=== PATIENT | male | born 1955 | race Two or more races ===

== ENCOUNTER 2021-03-17 02:22 | Emergency (ER) | payer OTHER ==
[~2021-03-17] VITALS: Ht 175.3 cm; Wt 86.2 kg
[2021-03-17 04:29] LABS: Basophils # (auto) 0 10 ^3/uL (0-0.2); Basophils % (auto) 0.6 % (0.0-2.0); Eosinophils # (auto) 0.2 10 ^3/uL (0-0.8); Eosinophils % (auto) 3.8 % (0.0-7.0); Hematocrit 49.9 % (41.0-53.0); Hemoglobin 16.8 g/dL (13.5-17.5); Lymphocytes # (auto) 1.4 10 ^3/uL (0.4-5.4); Lymphocytes % (auto) 29.5 % (10.0-50.0); Mean Corpuscular Hemoglobin 30.2 pg (28.0-32.0); Mean Corpuscular Hgb Conc. 33.6 g/dL (32.0-36.0); Mean Corpuscular Volume 89.9 fL (80.0-100.0); Monocytes # (auto) 0.4 10 ^3/uL (0-1.3); Monocytes % (auto) 8.7 % (0.0-12.0); Neutrophils # (auto) 2.7 10 ^3/uL (1.6-8.6); Neutrophils % (auto) 57.4 % (37.0-80.0); Nucleated Red Blood Cells % 0.1 %; Red Blood Cells 5.55 10^6/uL (4.5-5.90); White Blood Cell 4.7 10^3/uL (4.4-10.8)
[2021-03-17 04:44] LABS: Albumin 3.7 g/dL (3.4-5.0); BUN/Creatinine Ratio 13.2; Calcium 8.9 mg/dL (8.5-10.1); Magnesium 2.5 mg/dL (1.6-2.6); Potassium 3.7 mmol/L (3.5-5.1)
[2021-03-17 04:49] LABS: Bilirubin, Total 0.6 mg/dL (0.2-1.0); Total Protein 7.4 g/dL (6.4-8.2)
[2021-03-17 05:00] VITALS: BP 138/69
== END 2021-03-17 06:00 | disposition home or self-care (01) ==
LOC: EDBD 02:22 → ER 02:22
DX: R07.89 Other chest pain (principal); I10 Essential (primary) hypertension; Z88.0 Allergy status to penicillin
CPT/HCPCS: 36415; 71045; 80053; 83735; 83880; 84443; 84484; 85025; 93005

== ENCOUNTER 2021-08-09 06:20 | Day surgery (SDC) | payer OTHER ==
[~2021-08-09] VITALS: Ht 175.3 cm; Wt 83.9 kg
[~2021-08-09 06:20] MED LIST: AMLO-496 PO; ATOR20TA50 PO; DOCU1CAP22 PO; METO25TA5 PO
[2021-08-09] MEDS ORDERED: IODIXANOL 320MG/ML 100ML BTL IV ONE (07:43)
[2021-08-09] MEDS ORDERED: LIDOCAINE 2%HCL (LOCAL ANESTH.) INJ 10ml MDV ONE (07:43)
[2021-08-09] MEDS ORDERED: ANGIOMAX 250 MG VIAL IV ONE (07:53)
[2021-08-09] MEDS ORDERED: VERAPAMIL 2.5MG/ML INJ 2ML VIAL IV ONE (07:53)
[2021-08-09] MEDS ORDERED: HEPARIN SODIUM (PORCINE) 5000 UNITS/ML 1ML VIAL ONE (07:53)
[2021-08-09] MEDS ORDERED: SODIUM CHL 0.9% 100 ML ONE (07:54)
[2021-08-09] MEDS ORDERED: MIDAZOLAM HCL 2MG/2ML 2ml VIAL (1mg/ml) ONE (07:54)
[2021-08-09] MEDS ORDERED: fentaNYL CITRATE 100 MCG/2 ML VL ONE (07:54)
[2021-08-09] MEDS ORDERED: NITROGLYCERIN 5MG/ML 10ML VIAL IV ONE (07:57)
[2021-08-09] MEDS ORDERED: TICAGRELOR 90 MG TAB ONE (08:44)
[2021-08-09] MEDS ORDERED: ASPirin 325 MG TAB ONE (08:44)
== END 2021-08-09 15:02 | disposition home or self-care (01) ==
LOC: CATH 06:20
PROVIDERS: ATTEND Internal Medicine
DX: R94.39 Abnormal result of other cardiovascular function study (principal); I25.118 Atherosclerotic heart disease of native coronary artery with other forms of angina pectoris; I48.91 Unspecified atrial fibrillation; I10 Essential (primary) hypertension; E78.5 Hyperlipidemia, unspecified; Z88.0 Allergy status to penicillin; Z79.899 Other long term (current) drug therapy; Z87.891 Personal history of nicotine dependence; Z20.822 Contact with and (suspected) exposure to COVID-19
CPT/HCPCS: 93005; 93454; C1725; C1769; C1874; C1887; C1894; C9600; J0583; J1644; J2001; J2250; J3010; J3490; Q9967; U0003; 92928; 99152; 99153

== ENCOUNTER 2023-08-11 06:58 | Inpatient (IN) | payer OTHER ==
[~2023-08-11] VITALS: Ht 172.7 cm; Wt 95.9 kg
[2023-08-11] VITALS (11 sets, daily range): BP systolic 140–157; BP diastolic 77–102; PULSE 83–108; RESP 12–20; TEMP 98.8; O2SAT 94–98
[~2023-08-11 06:58] MED LIST changes: -AMLO-496 PO; +AMLO1TAB23 PO; +APIX5TAB PO; +DOCU-209 PO; -DOCU1CAP22 PO; +HYDR25TA5 PO; +LOSA-535 PO; +POTA-228 PO; +TICA90TA PO
[2023-08-11] MEDS: VANCOMYCIN HCL 1000 MG VL ONE (13:37)
[2023-08-11] MEDS: MIDAZOLAM HCL 2MG/2ML 2ml VIAL (1mg/ml) ONE (13:38)
[2023-08-11] MEDS: fentaNYL CITRATE 100 MCG/2 ML VL ONE (13:38)
[2023-08-11] MEDS: VANCOMYCIN 1GM/200ML 200 ML IV ONE (13:39)
[2023-08-11] MEDS: LIDOCAINE 2%HCL (LOCAL ANESTH.) INJ 20ML MDV ONE (13:41)
[2023-08-11] MEDS: IOHEXOL 350 MG/ML 100ML IJ ONE (13:48)
[2023-08-11] MEDS: HYDROmorphone HCL 2 MG/ML VL/or syr ONE (14:00)
[2023-08-11] MEDS ORDERED: ACETAMINOPHEN 325 MG TAB PO PRN (14:45)
[2023-08-11] MEDS ORDERED: MORPHINE SULFATE INJ 2 MG/ml SYRG IV PRN (15:00)
[2023-08-11] MEDS ORDERED: NITROGLYCERIN 0.4 MG SL TAB SL PRN (15:00)
[2023-08-11] MEDS: HYDROcodone-ACET 5/325MG TAB PO PRN (16:58)
[2023-08-12 01:00] VITALS: BP 167/101; PULSE 90; RESP 20; TEMP 98.6; O2SAT 98
[2023-08-12] MEDS: MORPHINE SULFATE INJ 2 MG/ml SYRG IV PRN (01:28)
[2023-08-12 04:24] VITALS: BP 161/93; PULSE 69; RESP 18; TEMP 98.4; O2SAT 98
[2023-08-12 07:11] LABS: Anion Gap 9 (5-15); Carbon Dioxide 22 mmol/L (20-30); Chloride 100 mmol/L (98-107); Potassium 3.5 mmol/L (3.5-5.1); Sodium 131 mmol/L (136-145)
[2023-08-12 07:12] LABS: Calcium 9.1 mg/dL (8.5-10.1)
[2023-08-12 07:17] LABS: Blood Urea Nitrogen 8 mg/dL (9-23); Glucose 132 mg/dL (74-106)
[2023-08-12 08:00] VITALS: PULSE 125; PULSE 145; RESP 18; O2SAT 97
[2023-08-12 08:52] VITALS: BP 155/98; PULSE 67; RESP 17; TEMP 97.8; O2SAT 97
[2023-08-12 09:22] LABS: Magnesium 1.9 mg/dL (1.6-2.6)
[2023-08-12] MEDS: METOPROLOL TARTRATE 50 MG TAB PO ONE (09:30)
[2023-08-12 12:23] VITALS: BP 135/96; PULSE 71; RESP 17; TEMP 97.4; O2SAT 97
[2023-08-12] MEDS ORDERED: METO-289 PO (13:59)
[2023-08-12 14:48] VITALS: BP 150/95; PULSE 96; RESP 16; TEMP 36.3; O2SAT 98
[2023-08-12] MEDS ORDERED: METOPROLOL TARTRATE 50 MG TAB PO SCH (22:00)
== END 2023-08-12 15:20 | disposition home or self-care (01) | DRG 244 ==
LOC: CATH 06:58 → TELE 14:57 → TELE-WESTW 17:38
PROVIDERS: ADMIT Internal Medicine; ATTEND Internal Medicine
PROC: 0JH606Z Insertion of Pacemaker, Dual Chamber into Chest Subcutaneous Tissue and Fascia, Open Approach (ICD-10-PCS; principal; 2023-08-11)
PROC: 02H63JZ Insertion of Pacemaker Lead into Right Atrium, Percutaneous Approach (ICD-10-PCS; 2023-08-11)
PROC: 02HK3JZ Insertion of Pacemaker Lead into Right Ventricle, Percutaneous Approach (ICD-10-PCS; 2023-08-11)
DX: I49.5 Sick sinus syndrome (principal); I10 Essential (primary) hypertension; I48.91 Unspecified atrial fibrillation
CPT/HCPCS: 33208; 36415; 71045; 80048; 83735; 87205; 93005; 99152; G0378; J2250

== ENCOUNTER 2024-03-06 15:49 | Inpatient (IN) | payer OTHER ==
[~2024-03-06] VITALS: Ht 175.3 cm; Wt 99.5 kg
[~2024-03-06 15:49] MED LIST changes: +METO-289 PO; -TICA90TA PO
--- NOTE | 2024-03-06 16:52 | DVH ---
EXAM: XR Right Ankle Complete, 3 or More Views CLINICAL INDICATION: PAIN FALL TECHNIQUE: Frontal, lateral and oblique views of the right ankle. COMPARISON: None FINDINGS: BONES/JOINTS: Comminuted spiral fracture of the distal tibia with moderate displacement of the proxi mal fragment. Soft tissue swelling. No dislocation. SOFT TISSUES: See above. OTHER FINDINGS: . . IMPRESSION: Comminuted spiral fracture of the distal tibia with moderate displacement of the proximal fragment. S oft tissue swelling. HS:Y
[2024-03-06 17:29] VITALS: PULSE 80; RESP 20; O2SAT 96
[2024-03-06] MEDS: SODIUM CHLORIDE 0.9% 1,000 ML IV ONE (17:36)
--- NOTE | 2024-03-06 18:23 | DVH ---
EXAM: CT HEAD WITHOUT CONTRAST HISTORY: aloc COMPARISON: None TECHNIQUE: Axial images were obtained and reformatted in coronal and sagittal planes. All CT scans at this medical facility are performed using dose modulation techniques as appropriate t o a performed exam including the following: Automated exposure control was utilized; adjustment of th e MA and/or KV according to patient size; and use of iterative reconstruction technique. CT Dose: CTDI volume is 58 mGy. Dose-length product is 939 mGy*cm FINDINGS: Supratentorial Region: No evidence for large acute territorial ischemia. No intracranial hemorrhage is noted. Posterior Fossa: No acute abnormality. Brainstem: Unremarkable. Sellar/Suprasellar Region: Unremarkable. Ventricles, Cisterns, Sulci: Age-appropriate. Orbits: Unremarkable. Paranasal Sinuses: Unremarkable. Mastoid Air Cells: Unremarkable. Vasculature: Unremarkable. Bones/Soft Tissues: No acute abnormality. Other: None. IMPRESSION: 1. No acute intracranial process.
[2024-03-06 18:43] LABS: Alanine Aminotransferase 35 U/L (7-40); Albumin 3.6 g/dL (3.2-4.8); Alkaline Phosphatase 80 U/L (46-116); Anion Gap 8 (5-15); Aspartate Aminotransferase 24 U/L (13-40); BUN/Creatinine Ratio 18.5 (10.0-20.0); Blood Urea Nitrogen 17 mg/dL (9-23); Calcium 8.9 mg/dL (8.7-10.4); Carbon Dioxide 25 mmol/L (20-31); Chloride 97 mmol/L (98-107); Glucose 138 mg/dL (74-106); Potassium 3.3 mmol/L (3.5-5.1); Sodium 130 mmol/L (136-145)
[2024-03-06 18:44] LABS: Bilirubin, Total 0.6 mg/dL (0.2-1.0); Total Protein 5.7 g/dL (5.7-8.2)
--- NOTE | 2024-03-06 18:44 | ED.PDOC ---
Back pain HPI HPI Comments HPI: Poor Historian. 69-year-old male brought in by EMS presents with a chief complaint of right ankle pain s/p mechanical fall due to ETOH use. Per patient, he was attempting to walk home and was walking on cobblestone and twisted his right ankle taking a step. Patient mentions that bystanders called 911. Patient reports that he drank "a beer and a half" today. Patient has strong scent of alcohol. Patient denies hitting his head, denies loss of consciousness. Denies use of blood thinners. PMHx: HTN, Alzheimer's Disease, Prostate Cancer PSHx: Pacemaker, Hernia Repair x 2, Prostatectomy Allergies: Penicillins Initial Vital Signs: BP: 142/83 HR: 97 Temp: 98.4F SpO2: 97% RR: 16 REVIEW OF SYSTEMS: CONSTITUTIONAL: Denies acute: fever, diaphoresis, chills, generalized weakness. HEAD: Denies acute: headache, photophobia Eyes: Denies acute: Double vision, vision loss, eye pain, eye discharge. EARS: Denies acute: tinnitus, hearing loss, ear discharge, ear pain, THROAT: Denies acute: sore throat, swelling, difficulty swallowing , pain with swallowing, change in voice. NECK: Denies acute: neck pain, neck swelling, stiff neck. HEART: Denies acute : chest pain, palpitations, LUNGS: Denies acute: SOB, wheezing, cough, hemoptysis ABDOMEN: Denies acute: abdominal pain, Nausea, Vomiting, diarrhea, melena , hematemesis, hematochezia SKIN: Denies acute: rash, redness, lesions, itchiness. EXTREMITIES: Denies acute: calf pain, numbness, tingling, weakness, denies pain in extremity. Denies acute: Low back pain. Neuro: Denies acute: focal neurological deficit, motor or sensory focal neurological deficit, tremors, seizure like activity, confusion, dizziness, change in mental status, loss of bowel or bladder function, cauda equina like symptoms. : Denies acute: dysuria, hematuria, flank pain, increase in urinary frequency. PSYCH: Denies acute: hallucination, suicidal ideation, homicidal ideation. PHYSICAL EXAM: General: no acute distress, awake and alert. Head: normocephalic, atraumatic. Neck: supple, trachea is midline, no swelling. Throat: Normal phonation. Eyes:, no erythema, no purulent discharge, no proptosis, no icterus. Heart: regular rate, regular rhythm, no significant murmur appreciated. Lungs: no apparent respiratory distress, Able to speak in full sentences. No wheezing, no rhonchi, no crackles. No stridors Clear to auscultation bilaterally. Abdomen: non tender to palpation, non distended, soft, no guarding, no rebound, + bowel sounds. Neuro: Awake, Alert, oriented to name, self, situation, follows commands GCS=15. Speech is normal. Skin: no petechia, no purpura, no cyanosis, non-pale, not jaundice. Lower extremities: --no - Pitting edema Noted deformity, no focal swelling, no calf TTP. Noted right above the ankle contusion and deformity that is tender to palpation. Patient is neurovascularly intact in the affected extremity. Pedal pulses are palpable. Motor and sensory are present affected extremity. Makes eye contact. moves all four extremities. Face: no apparent facial droop. No CVA tenderness to percussion bilaterally. Pedal pulses are palpable. Chief Complaint: ETOH Time Seen by MD: 18:33 Reviewed Notes: Medications, Allergies Allergies: Coded Allergies: Penicillins (Verified Allergy, Intermediate, ARMPIT RASH, 08/09/23) Home Meds Reported Medications Metoprolol Succinate (Metoprolol Succinate Er) 50 Mg Tab, 50 MG PO BID, TAB 08/12/23 Hctz (Hydrochlorothiazide) 25 Mg Tab, 25 MG PO DAILY for HTN, TAB 08/09/23 Potassium Chloride (Potassium Chloride ER) 10 Meq Tab, 10 MEQ PO DAILY, TAB 08/09/23 Apixaban Base (ELIQUIS) 5 Mg Tab, 5 MG PO BID for stop on 08/10/23, TAB 08/09/23 Losartan Potassium (Losartan Potassium) 100 Mg Tab, 100 MG PO DAILY for HTN for 30 Days, MG 08/09/23 Atorvastatin Calcium (ATORVASTATIN CALCIUM) 20 Mg Tab, 1 TAB PO QPM 08/06/21 Metoprolol Tartrate (Metoprolol Tartrate) 25 Mg Tab, 50 MG PO QAM for HYPERTENSION, MG 08/06/21 Amlodipine Besylate (Amlodipine Besylate) 10 Mg Tab, 1 TAB PO QAM for HYPERTENSION 08/06/21 Docusate Sodium (Dok) 100 Mg Cap, 100 MG PO DAILY PRN for FOR CONSTIPATION 08/06/21 Information Source: Patient Mode of Arrival: EMS Past Medical History PAST MEDICAL HISTORY: Alzheimer, Cancer, HTN Surgical History: Hernia Repair, Pacemaker Family History Family History: Reviewed,noncontributory to illness Social History Smoker: Non-Smoker Alcohol: Denies ETOH Use Drugs: Denies Drug Use Lives In: Home Was a procedure done? Was a procedure done?: No Back Pain Differential Dx Differential Diagnosis: Other (Spinal cord injury, fracture, dislocation, bruise, contusion, hematoma, bleeding, ) X-Ray, Labs, Meds, VS Vital Signs Date Time Temp Pulse Resp B/P (MAP) Pulse Ox O2 Delivery O2 Flow Rate FiO2 03/06/24 18:16 98.7 73 14 127/82 (97) 97 98.7 03/06/24 17:29 80 20 96 Room Air* 0 21 03/06/24 16:03 98.4 97 16 142/83 (102) 97 03/06/24 16:03 98.4 97 16 142/83 (102) 97 98.4 Lab Test 03/06/24 19:30 03/06/24 18:20 03/06/24 17:19 Range/Units Urine Color Pending Urine Clarity Pending Urine pH Pending Urine Specific [place] Pending Urine Protein Pending Urine Ketones Pending Urine Blood Pending Urine Nitrite Pending Urine Bilirubin Pending Urine Urobilinogen Pending Urine Leukocyte Esterase Pending Urine RBC Pending Urine WBC Pending Urine Squamous Epithelial Cells Pending Urine Bacteria Pending Urine Glucose Pending Troponin I High Sensitivity 6 6 </=54 ng/L White Blood Count 11.3 H 4.4-10.8 10^3/uL Red Blood Count 4.48 L 4.5-5.90 10^6/uL Hemoglobin 14.3 13.5-17.5 g/dL Hematocrit 41.5 41.0-53.0 % Mean Corpuscular Volume 92.5 80.0-100.0 fL Mean Corpuscular Hemoglobin 32.0 28.0-32.0 pg Mean Corpuscular Hemoglobin Concent 34.6 32.0-36.0 g/dL Red Cell Distribution Width 14.3 11.8-14.3 % Platelet Count 412 140-450 10^3/uL Mean Platelet Volume 6.3 L 6.9-10.8 fL Neutrophils (%) (Auto) 37.0-80.0 % Lymphocytes (%) (Auto) 10.0-50.0 % Monocytes (%) (Auto) 0.0-12.0 % Basophils (%) (Auto) 0.0-2.0 % Neutrophils # (Auto) 1.6-8.6 10 ^3/uL Lymphocytes # (Auto) 0.4-5.4 10 ^3/uL Monocytes # (Auto) 0-1.3 10 ^3/uL Differential Total Cells Counted Pending Neutrophils % (Manual) Pending Band Neutrophils % (Manual) Pending Lymphocytes % (Manual) Pending Monocytes % (Manual) Pending Eosinophils % (Manual) Pending Basophils % (Manual) Pending Metamyelocytes % (manual) Pending Myelocytes % (Manual) Pending Promyelocytes % (Manual) Pending Blast Cells % (Manual) Pending Reactive Lymphocytes Pending Platelet Estimate Pending Sodium Level 130 L 136-145 mmol/L Potassium Level 3.3 L 3.5-5.1 mmol/L Chloride Level 97 L 98-107 mmol/L Carbon Dioxide Level 25 20-31 mmol/L Anion Gap 8 5-15 Blood Urea Nitrogen 17 9-23 mg/dL Creatinine 0.92 0.700-1.30 mg/dL Glomerular Filtration Rate Calc 89 >90 mL/min BUN/Creatinine Ratio 18.5 10.0-20.0 Serum Glucose 138 H 74-106 mg/dL Lactic Acid Level 2.3 *H 0.4-2.0 mmol/L Calcium Level 8.9 8.7-10.4 mg/dL Magnesium Level 2.0 1.6-2.6 mg/dL Total Bilirubin 0.6 0.2-1.0 mg/dL Aspartate Amino Transferase (AST) 24 13-40 U/L Alanine Aminotransferase (ALT) 35 7-40 U/L Alkaline Phosphatase 80 46-116 U/L Total Protein 5.7 5.7-8.2 g/dL Albumin 3.6 3.2-4.8 g/dL Plasma/Serum Blood Alcohol 254.6 H <10 mg/dL Current Medications Medications (Trade) Dose Ordered Sig/Lea Route Start Time Stop Time Status Last Admin Sodium Chloride 1,000 ml @ 1,000 mls/hr Q1H ONCE IV 03/06/24 17:30 03/06/24 18:29 DC 03/06/24 17:36 Acetaminophen/ Hydrocodone Bitart (Stuart 5/325MG Tab) 1 tab ONCE ONCE PO 03/06/24 18:45 03/06/24 18:46 DC 03/06/24 18:51 Time of 1ST Reevaluation: 19:03 Reevaluation 1ST: Unchanged Time of 2ND Reevaluation: 19:09 (The case was discussed with the ortho team (HPI, physical exam, labs and diagnostic tests that were available at the time of disposition, ED course, treatment plan) on the phone. They recommend admitting the patient to the hospitalist team and they will arrange for surgery tomorrow. dr. Kemp.) Reevaluation 2ND: Improved Patient Education/Counseling: Diagnosis, Treatment Family Education/Counseling: No Family Present Comments Patient presented with the above HPI.---fall and ankle pain and alcohol abuse---workup was initiated. patient was found with the above mentioned diagnosis. Patient was given: Fluids and Stuart Patient ED course and VS have been stabilized. Patient has been reassessed in the ED and remained in a stable condition. Pertinent incidental findings were discussed with the patient and/or family. Patient/family voices understanding and is agreeable with plan. Patient has been observed in the ED adequate length of time to insure improvement/stability. patient was admitted to the medicine team for further evaluation and treatment of their presentation. Orthopedic surgery was consulted. A sugar-tong and a posterior splint was placed on the patient's affected ankle. Patient is neurovascularly intact. All the reports of any imaging studies that were ordered by myself were reviewed by myself. Departure 1 Departure Time of Disposition: 18:50 Impression: Primary Impression: Closed right tibial fracture Additional Impression: Alcohol abuse Disposition: ADMITTED INPATIENT Admit to: Tele Condition: Guarded Discharged With: Self Critical Care Note Critical Care Time?: No I personally scribed for URI MELENDREZ DO ([email or web address]) on 03/06/24 at 18:44. Electronically submitted by Moris Camilo ([email or web address]). URI MELENDREZ DO Mar 06, 2024 18:44
[2024-03-06 18:47] LABS: Lactic Acid w/Reflex 2.3 mmol/L (0.4-2.0)
[2024-03-06] MEDS: HYDROcodone-ACET 5/325MG TAB PO ONE (18:51)
[2024-03-06 18:56] LABS: Hematocrit 41.5 % (41.0-53.0); Hemoglobin 14.3 g/dL (13.5-17.5); Mean Corpuscular Hgb Conc. 34.6 g/dL (32.0-36.0); Mean Corpuscular Volume 92.5 fL (80.0-100.0); Platelet Count (auto) 412 10^3/uL (140-450); Red Blood Cells 4.48 10^6/uL (4.5-5.90); Red Cell Distribution Width 14.3 % (11.8-14.3); White Blood Cell 11.3 10^3/uL (4.4-10.8)
[2024-03-06 19:06] LABS: Basophils % (manual) 0 (0.0-2.0); Blast Cells 0; Eosinophils % (manual) 0 (0-7); Metamyelocytes % 0; Myelocytes % 0; Promyelocytes % 0; Reactive Lymphocytes 0
[2024-03-06 19:31] LABS: Urine Bacteria None Seen /hpf (None Seen)
[2024-03-06 19:39] LABS: Urine Blood Negative /uL (Negative); Urine Clarity Clear (Clear); Urine Color Yellow (Yellow); Urine Hyaline Cast FEW /lpf (0 - 2); Urine Protein, UAD 2+ (Negative); Urine Specific Gravity 1.017 (1.001-1.035); Urine Urobilinogen Normal (Negative); Urine WBC 1 /hpf (0 - 3); Urine pH 6.5 (5.0-9.0)
[2024-03-06 19:43] VITALS: PULSE 104; RESP 16; O2SAT 98
[2024-03-06 19:52] LABS: Band Neutrophils % (manual) 4; Lymphocytes % (manual) 22 (10.0-50.0); Monocytes % (manual) 4 (0-12)
[2024-03-06 19:53] LABS: Platelet Estimate Adequate
[2024-03-06] MEDS ORDERED: NITROGLYCERIN 0.4 MG SL TAB SL PRN (21:30)
[2024-03-06] MEDS ORDERED: ACETAMINOPHEN 325 MG TAB PO PRN (21:30)
[2024-03-06] MEDS ORDERED: MORPHINE SULFATE INJ 2 MG/ml SYRG IV PRN (21:30)
[2024-03-06] MEDS ORDERED: hydrALAZINE HCL 20 MG/ML VL IV PRN (21:45)
[2024-03-06] MEDS: AMIODARONE HCL 200 MG TAB PO SCH (22:15)
--- NOTE | 2024-03-06 22:18 | DVH ---
CHEST RADIOGRAPH Indication:presurgical Technique: Single frontal view of the chest was obtained Comparison: XY CHEST XRAY 1 VIEW on DOS: 08/12/23, XY CHEST PORTABLE on DOS: 08/11/23, CHEST PORTABLE o n DOS: 03/17/21 FINDINGS: Lines and Tubes: Left-sided cardiac device with intact leads. Lungs: No focal consolidation. Pleura: No effusion. No pneumothorax. Cardiomediastinal contours: Unremarkable Bones: No acute osseous abnormality. IMPRESSION: No acute cardiopulmonary disease.
[2024-03-07] VITALS (10 sets, daily range): BP systolic 122–157; BP diastolic 63–86; PULSE 73–156; RESP 10–20; TEMP 97.6–98.7; O2SAT 96–100
[2024-03-07] MEDS: POTASSIUM CHL 20 Meq TABLET PO ONE (00:54)
[2024-03-07] MEDS: MORPHINE SULFATE INJ 2 MG/ml SYRG IV PRN (01:01)
[2024-03-07] MEDS: HYDROcodone-ACET 5/325MG TAB PO PRN (01:33)
--- NOTE | 2024-03-07 01:41 | DVHHP2 ---
NELLY FORREST DIRECTOR OF ANALYTICAL DEVELOPMENT 03/07/24 0141: History of Present Illness Reason for Visit: Right ankle injury History of Present Illness 69-year-old male medical history of hypertension, fib on Eliquis, PM Presents with complaints of writing and injury following A mechanical fall. Patient states he was walking on stones when he lost his footing. On arrival to the emergency department the patient is noted to be intoxicated with alcohol. X-ray of the right ankle is positive for acute fracture of distal tibia. Patient denies fevers, chills, shortness of breath, syncope, chest pain, pa lpitations,Nausea, vomiting. Cardiovascular: AFIB, CAD, HTN Review of Systems Constitutional: No: Fever, Chills, Sweats, Weakness, Malaise, Other Eyes: No: Pain, Vision change, Conjunctivae inflammation, Eyelid inflammation, Other, Redness ENT: No: Ear pain, Ear discharge, Nose pain, Nose discharge, Nose congestion, Mouth pain, Mouth swelling, Throat pain, Throat swelling, Other Respiratory: No: Cough, Dry, Shortness of breath, SOB with excertion, Wheezing, Hemoptysis, Pleuritic Pain, Sputum, Wheezing, Other Cardiovascular: No: Chest Pain, Palpitations, Orthopnea, Paroxysmal Noc. Dyspnea, Edema, Lt Headedness, Other Gastrointestinal: No: Nausea, Vomiting, Abdominal Pain, Diarrhea, Constipation, Melena, Hematochezia, Other Genitourinary: No Dysuria, No Frequency, No Incontinence, No Hematuria, No Retention, No Other Musculoskeletal: leg pain, foot pain; No: other, neck pain, shoulder pain, arm pain, back pain, hand pain Skin: No: Rash, Lesions, Jaundice, Bruising, Other Neurological: No: Weakness, Numbness, Incoordination, Change in speech, Confusion, Seizures, Other Allergies: Coded Allergies: Penicillins (Verified Allergy, Intermediate, ARMPIT RASH, 08/09/23) Medications Current Medications Medications Dose Ordered Sig/Lea Route Start Time Stop Time Status Last Admin Dose Admin Docusate Sodium 100 mg BIDPRN PRN PO 03/06/24 21:30 Acetaminophen 650 mg Q6HP PRN PO 03/06/24 21:30 Acetaminophen/ Hydrocodone Bitart 1 tab Q4HP PRN PO 03/06/24 21:30 03/07/24 01:33 1 TAB Ondansetron HCl 4 mg Q4HP PRN IV 03/06/24 21:30 Morphine Sulfate 2 mg Q4HPRN PRN IV 03/06/24 21:30 03/07/24 01:01 2 MG Enoxaparin Sodium 40 mg DAILY SC 03/07/24 10:00 Nitroglycerin 0.4 mg Q5MINP PRN SL 03/06/24 21:30 Morphine Sulfate 2 mg Q30M PRN IV 03/06/24 21:30 Hydralazine HCl 10 mg Q4HPRN PRN IV 03/06/24 21:45 Metoprolol Succinate 100 mg DAILY PO 03/07/24 10:00 Amiodarone HCl 200 mg BID PO 03/06/24 22:00 03/06/24 22:15 200 MG Exam Vital Signs Vital Signs Date Time Temp Pulse Resp B/P (MAP) Pulse Ox O2 Delivery O2 Flow Rate FiO2 03/07/24 01:31 80 18 138/80 03/07/24 00:50 98.2 100 98.2 03/06/24 19:43 Room Air* 0 21 General Appearance: Alert, Oriented X3, Cooperative HEENT: Atraumatic, PERRLA, EOMI Respiratory: Clear to auscultation, Normal air movement Cardiovascular: Regular rate, Normal S1, Normal S2 Abdominal: Normal bowel sounds, Soft Extremities: No clubbing, No cyanosis, Other (Right lower extremity in Splint) Skin: No rashes, No breakdown Neuro: Normal gait, Normal speech Psych/Mental Status: Mental status NL, Mood NL Labs/Xrays Labs Test 03/06/24 19:35 03/06/24 19:30 03/06/24 17:19 Range/Units Lactic Acid Level 1.7 0.4-2.0 mmol/L Troponin I High Sensitivity 8 </=54 ng/L Urine Color Yellow Yellow Urine Clarity Clear Clear Urine pH 6.5 5.0-9.0 Urine Specific [place] 1.017 1.001-1.035 Urine Protein 2+ H Negative Urine Ketones Negative Negative Urine Blood Negative Negative /uL Urine Nitrite Negative Negative Urine Bilirubin Negative Negative Urine Urobilinogen Normal Negative mg/dL Urine Leukocyte Esterase Negative Negative /uL Urine RBC 1 0 - 3 /hpf Urine WBC 1 0 - 3 /hpf Urine Squamous Epithelial Cells Few <5 /hpf Urine Bacteria None seen None Seen /hpf Urine Hyaline Casts Few 0 - 2 /lpf Urine Glucose Normal Normal mg/dL White Blood Count 11.3 H 4.4-10.8 10^3/uL Red Blood Count 4.48 L 4.5-5.90 10^6/uL Hemoglobin 14.3 13.5-17.5 g/dL Hematocrit 41.5 41.0-53.0 % Mean Corpuscular Volume 92.5 80.0-100.0 fL Mean Corpuscular Hemoglobin 32.0 28.0-32.0 pg Mean Corpuscular Hemoglobin Concent 34.6 32.0-36.0 g/dL Red Cell Distribution Width 14.3 11.8-14.3 % Platelet Count 412 140-450 10^3/uL Mean Platelet Volume 6.3 L 6.9-10.8 fL Neutrophils (%) (Auto) 37.0-80.0 % Lymphocytes (%) (Auto) 10.0-50.0 % Monocytes (%) (Auto) 0.0-12.0 % Basophils (%) (Auto) 0.0-2.0 % Neutrophils # (Auto) 1.6-8.6 10 ^3/uL Lymphocytes # (Auto) 0.4-5.4 10 ^3/uL Monocytes # (Auto) 0-1.3 10 ^3/uL Differential Total Cells Counted 100.0 100 Neutrophils % (Manual) 70 37.0-80.0 Band Neutrophils % (Manual) 4 Lymphocytes % (Manual) 22 10.0-50.0 Monocytes % (Manual) 4 0-12 Eosinophils % (Manual) 0 0-7 Basophils % (Manual) 0 0.0-2.0 Metamyelocytes % (manual) 0 Myelocytes % (Manual) 0 Promyelocytes % (Manual) 0 Blast Cells % (Manual) 0 Reactive Lymphocytes 0 Platelet Estimate Adequate Sodium Level 130 L 136-145 mmol/L Potassium Level 3.3 L 3.5-5.1 mmol/L Chloride Level 97 L 98-107 mmol/L Carbon Dioxide Level 25 20-31 mmol/L Anion Gap 8 5-15 Blood Urea Nitrogen 17 9-23 mg/dL Creatinine 0.92 0.700-1.30 mg/dL Glomerular Filtration Rate Calc 89 >90 mL/min BUN/Creatinine Ratio 18.5 10.0-20.0 Serum Glucose 138 H 74-106 mg/dL Calcium Level 8.9 8.7-10.4 mg/dL Magnesium Level 2.0 1.6-2.6 mg/dL Total Bilirubin 0.6 0.2-1.0 mg/dL Aspartate Amino Transferase (AST) 24 13-40 U/L Alanine Aminotransferase (ALT) 35 7-40 U/L Alkaline Phosphatase 80 46-116 U/L Total Protein 5.7 5.7-8.2 g/dL Albumin 3.6 3.2-4.8 g/dL Plasma/Serum Blood Alcohol 254.6 H <10 mg/dL Assessment/Plan Assessment/Plan Right comminuted fracture of distal tibia Hypertension Hx AFIB Alcohol intoxication Plan Admit to telemetry Cardiology consult. Echocardiogram for cardiac clearance. As needed anti- hypertensive for optimal BP management. Resume home medication. Orthopedic surgical consult As needed analgesia Monitor for withdrawal symptoms. . GI ppx pepcid / DVT ppx lovenox Plan discussed with: Patient My Orders Orders - NELLY FORREST NP Procedure Category Date Status Time Admit ADMIT 03/06/24 Transmitted 21:24 Code Status CODE 03/06/24 Transmitted 21:24 Vital Signs [facility] 03/06/24 In Process 21:24 Review Orders With MISHA 03/06/24 In Process Adm. 21:24 Encourage Activity As MISHA 03/06/24 In Process Tolerate 21:24 Npo (Nothing By DIET 03/07/24 Transmitted Mouth) Diet Breakfast Oxygen By Face Mask RT 03/06/24 Transmitted 21:24 Docusate Sodium PHA 03/06/24 In Process Capsule (Colace 21:30 Acetaminophen Tablet PHA 03/06/24 In Process (Tylenol Tablet) 21:30 Notify Of Changes [facility] 03/06/24 In Process From Base 21:24 Advance Directive [facility] 03/06/24 In Process 21:24 Echo 2d Mode Cardiac US 03/06/24 Logged DOP 21:24 Basic Metabolic Panel LAB 03/07/24 Logged 05:00 Basic Metabolic Panel LAB 03/08/24 Verified 05:00 Basic Metabolic Panel LAB 03/09/24 Verified 05:00 Basic Metabolic Panel LAB 03/10/24 Verified 05:00 Basic Metabolic Panel LAB 03/11/24 Verified 05:00 Complete Blood Count LAB 03/07/24 Logged 05:00 Complete Blood Count LAB 03/08/24 Verified 05:00 Complete Blood Count LAB 03/09/24 Verified 05:00 Complete Blood Count LAB 03/10/24 Verified 05:00 Complete Blood Count LAB 03/11/24 Verified 05:00 Patient Condition ORDERS 03/06/24 Transmitted 21:24 Allergies MISHA 03/06/24 In Process 21:24 Hydrocodone-Acet PHA 03/06/24 In Process 5/325mg Tab (Baxley 21:30 Ondansetron Hcl PHA 03/06/24 In Process (Zofran) 21:30 Morphine Sulfate PHA 03/06/24 In Process Injection 21:30 Enoxaparin Sodium PHA 03/07/24 In Process (Lovenox) 10:00 Nitroglycerin PHA 03/06/24 In Process Sublingual (Ntrostat 21:30 Morphine Sulfate PHA 03/06/24 In Process Injection 21:30 Stat Ekg For Chest MISHA 03/06/24 In Process Pain 21:24 Notify Md Of Changes MISHA 03/06/24 In Process From Base 21:24 Lining Stitcher For MISHA 03/06/24 In Process 24 Hours 21:24 Emergency Dysrhythmia MISHA 03/06/24 In Process Protocol 21:24 Rhythm Strips Once MISHA 03/06/24 In Process Every Shift 21:24 Oxygen By Nasal RT 03/06/24 Transmitted Cannula 21:24 * Cardiology Consult CONS 03/06/24 Transmitted 21:24 Prothrombin Time W/ LAB 03/07/24 Logged INR 04:00 Chest Portable XY 03/06/24 Resulted 21:24 Electrocardigram EKG 03/06/24 Logged 21:24 Blood Alcohol LAB 03/07/24 Logged 04:00 Hydralazine Injection PHA 03/06/24 In Process (Apresoline Inject 21:45 Metoprolol Xl PHA 03/07/24 In Process Succinate (Toprol Xl) 10:00 Amiodarone Tablet PHA 03/06/24 In Process (Cordarone Tablet) 22:00 Date of Service: Mar 07, 2024 Billing Provider: OSWALDO YUNG MD Common Visit Codes: NOT BILLABLE OSWALDO YUNG MD 03/07/24 1432: Review of Systems Allergies: Coded Allergies: Penicillins (Verified Allergy, Intermediate, ARMPIT RASH, 08/09/23) Additional Comments Additional Comments Additional Comments 69-year-old male with a known history of hypertension, dyslipidemia, chronic AFib currently on Eliquis, known coronary artery disease status post PCI with two stents, two years ago presented to the hospital with mechanical fall found to have 1. Acute comminuted spiral fracture of distal tibia with displacement of pr oximal segment status post mechanical fall 2. Acute alcoholic intoxication 3. Coronary artery disease status post PCI 4. Chronic AFib, currently on Eliquis last dose yesterday morning 5. Status post PPM 6. Hypertension 7. Dyslipidemia -resume metoprolol, amiodarone, hold Eliquis, risk of holding Eliquis while going for surgery explained to the patient, risks benefits and alternatives of holding Eliquis including acute stroke explained to the patient, who understand verbalized understanding and agreeable to plan -we will resume Eliquis after surgery. -2D echo preop cardiac clearance, patient is currently medically cleared with intermediate risk/ orthopedic surgical intervention. NELLY FORREST NP Mar 07, 2024 01:41 OSWALDO YUNG MD Mar 07, 2024 14:32
[2024-03-07 06:01] LABS: Basophils # (auto) 0.1 10 ^3/uL (0-0.2); Basophils % (auto) 0.4 % (0.0-2.0); Eosinophils # (auto) 0.1 10 ^3/uL (0-0.8); Eosinophils % (auto) 0.5 % (0.0-7.0); Hematocrit 38.1 % (41.0-53.0); Hemoglobin 13.3 g/dL (13.5-17.5); Lymphocytes # (auto) 1.8 10 ^3/uL (0.4-5.4); Lymphocytes % (auto) 12.9 % (10.0-50.0); Mean Corpuscular Hemoglobin 32.1 pg (28.0-32.0); Mean Corpuscular Hgb Conc. 34.8 g/dL (32.0-36.0); Mean Corpuscular Volume 92.2 fL (80.0-100.0); Monocytes # (auto) 0.7 10 ^3/uL (0-1.3); Monocytes % (auto) 5.2 % (0.0-12.0); Neutrophils # (auto) 11.6 10 ^3/uL (1.6-8.6); Nucleated Red Blood Cells % 0.1 %; Platelet Count (auto) 352 10^3/uL (140-450); Red Blood Cells 4.13 10^6/uL (4.5-5.90); Red Cell Distribution Width 14.4 % (11.8-14.3); White Blood Cell 14.3 10^3/uL (4.4-10.8)
[2024-03-07 06:03] LABS: Calcium 8.6 mg/dL (8.7-10.4); Chloride 102 mmol/L (98-107); Potassium 3.5 mmol/L (3.5-5.1); Sodium 134 mmol/L (136-145)
[2024-03-07 06:04] LABS: Anion Gap 6 (5-15); Carbon Dioxide 26 mmol/L (20-31)
[2024-03-07 06:06] LABS: INR 0.99 (0.9-1.15); Prothrombin Time 10.5 sec (9.3-11.8)
[2024-03-07 06:09] LABS: BUN/Creatinine Ratio 14.9 (10.0-20.0); Blood Urea Nitrogen 11 mg/dL (9-23); Glucose 125 mg/dL (74-106)
[2024-03-07 06:33] LABS: INR 0.99 (0.9-1.15); Partial Thromboplastin Time 28.2 SEC (24.5-34.5); Prothrombin Time 10.5 sec (9.3-11.8)
--- NOTE | 2024-03-07 08:28 | DVH ---
CHEST RADIOGRAPH Indication:SURGERY PROTOCOL pain Technique: Single frontal view of the chest was obtained Comparison: XY CHEST PORTABLE on DOS: 03/06/24, XY CHEST XRAY 1 VIEW on DOS: 08/12/23, XY CHEST PORTABL E on DOS: 08/11/23, CHEST PORTABLE on DOS: 03/17/21 FINDINGS: Lines and Tubes: Dual lead left sided pacemaker Lungs: No focal consolidation. Pleura: No effusion. No pneumothorax. Cardiomediastinal contours: Unremarkable Bones: No acute osseous abnormality. IMPRESSION: No acute cardiopulmonary disease.
[2024-03-07] MEDS: METOPROLOL SUCCINATE XL 50 MG TAB PO SCH (10:00)
[2024-03-07] MEDS: ENOXAPARIN SOD 40 MG/0.4 ML SYRINGE SC SCH (10:00)
[2024-03-07] MEDS ORDERED: AMIO200T33 PO (13:01)
[2024-03-07] MEDS ORDERED: FURO40TA4 PO (13:02)
--- NOTE | 2024-03-07 13:29 | DVHSR ---
APPROVED REPORT EXAM: Two-dimensional and M-mode echocardiogram with Doppler and color Doppler. Blood Pressure: 148/73 mmHg INDICATION Pre-Op RISK FACTORS Height: 5'9", Weight: 205 DIMENSIONS LVDd5.1 (3.8-5.7cm)LA (2D)5.0 (1.9-4.0cm)Aortic Root3.4 (2.0-3.7cm) LVDs3.7 (2.5-4.0cm)LA (MM) (1.9-4.0cm)Aortic Cusp Exc1.0 (1.5-2.0cm) EF (%) 54.0 (55-70%)Rt. Atrium4.5 (1.9-4.0cm)Asc. Aorta3.6 cm IVSd1.3 (0.7-1.1cm)RV (D)3.9 (1.8-2.4cm) PWd1.2 (0.7-1.1cm) Mitral Valve MitralMitral Stenosis E wave0.88m/sMV Mean GR.mmHg E/A ratio0.02D MVAcm2 Aortic Valve Aortic ValveAortic Stenosis V10.84m/Kacy Mean GR.10mmHg V22.28m/Kacy Peak GR.21mmHg LVOT Diameter2.1 (1.8-2.4cm)Doppler AVA1.28cm2 Pulmonic Valve V21.08m/s Other Information Quality : Technically LimitedRhythm : Technically limited study due to body habitus. Conclusion Normal left ventricular size and dimension. Normal left ventricular systolic function estimated ejec tion fraction 55%. There is a grade 1 diastolic dysfunction. Normal right ventricular size and dimension. Normal right ventricular systolic function. Normal biatrial size and dimension. Normal aortic valve structure and function. Normal mitral valve structure and function. Normal tricuspid valve structure and function. The pulmonary valve is grossly normal. No pericardial effusion.
--- NOTE | 2024-03-07 16:22 | DVHINCON2 ---
Date of service: Mar 07, 2024 History of Present Illness 69 yo M with hx of afib on doac, htn, obesity admitted for mechanical fall and preop now for ortho surgery. Past Medical History reviewed Family History: Arthritis G8 FATHER Diabetes mellitus G8 FATHER FH: kidney failure G8 MOTHER Allergies: Coded Allergies: Penicillins (Verified Allergy, Intermediate, ARMPIT RASH, 08/09/23) Home Meds Reported Medications Furosemide (Furosemide) 40 Mg Tab, 1 TAB PO DAILY, #30 TAB 5 Refills 03/07/24 Amiodarone Hcl (Amiodarone Hcl) 200 Mg Tab, 200 MG PO BID, TAB 03/07/24 Metoprolol Succinate (Metoprolol Succinate Er) 50 Mg Tab, 50 MG PO BID, TAB 08/12/23 Hctz (Hydrochlorothiazide) 25 Mg Tab, 25 MG PO DAILY for HTN, TAB 08/09/23 Potassium Chloride (Potassium Chloride ER) 10 Meq Tab, 10 MEQ PO DAILY, TAB 08/09/23 Apixaban Base (ELIQUIS) 5 Mg Tab, 5 MG PO BID for stop on 08/10/23, TAB 08/09/23 Losartan Potassium (Losartan Potassium) 100 Mg Tab, 100 MG PO DAILY for HTN for 30 Days, MG 08/09/23 Atorvastatin Calcium (ATORVASTATIN CALCIUM) 20 Mg Tab, 1 TAB PO QPM 08/06/21 Metoprolol Tartrate (Metoprolol Tartrate) 25 Mg Tab, 50 MG PO QAM for HYPERTENSION, MG 08/06/21 Amlodipine Besylate (Amlodipine Besylate) 10 Mg Tab, 1 TAB PO QAM for HYPERTENSION 08/06/21 Docusate Sodium (Dok) 100 Mg Cap, 100 MG PO DAILY PRN for FOR CONSTIPATION 08/06/21 Current Medications Current Medications Medications (Trade) Dose Ordered Sig/Lea Route PRN Reason Start Time Stop Time Status Last Admin Docusate Sodium (Colace Capsule) 100 mg BIDPRN PRN PO FOR CONSTIPATION 03/06/24 21:30 Acetaminophen (Tylenol Tablet) 650 mg Q6HP PRN PO PAIN SCALE 1-3 OR TEMP>100.4 03/06/24 21:30 Acetaminophen/ Hydrocodone Bitart ([place] 5/325MG Tab) 1 tab Q4HP PRN PO MODERATE PAIN (4-6 PAIN SCALE) 03/06/24 21:30 03/07/24 01:33 Ondansetron HCl (Zofran) 4 mg Q4HP PRN IV NAUSEA / VOMITING 03/06/24 21:30 Morphine Sulfate 2 mg Q4HPRN PRN IV SEVERE PAIN (7-10 PAIN SCALE) 03/06/24 21:30 03/07/24 11:47 Enoxaparin Sodium (Lovenox) 40 mg DAILY SC 03/07/24 10:00 Nitroglycerin (Ntrostat Sublingual) 0.4 mg Q5MINP PRN SL FOR CHEST PAIN 03/06/24 21:30 Morphine Sulfate 2 mg Q30M PRN IV FOR CHEST PAIN 03/06/24 21:30 Hydralazine HCl (Apresoline Injection) 10 mg Q4HPRN PRN IV SBP > 160 03/06/24 21:45 Metoprolol Succinate (Toprol Xl) 100 mg DAILY PO 03/07/24 10:00 Amiodarone HCl (Cordarone Tablet) 200 mg BID PO 03/06/24 22:00 03/06/24 22:15 Review of Systems 10 pt ros otherwise negative Vital Signs Vital Signs Date Time Temp Pulse Resp B/P (MAP) Pulse Ox O2 Delivery O2 Flow Rate FiO2 03/07/24 13:00 97.8 74 20 150/79 (102) 98 97.8 03/07/24 08:00 Room Air* 0 21 Physical Exam nad s1 s2 irregular ctab soft nt/nd no edema Labs/Diagnostic Data Labs Test 03/07/24 05:07 03/06/24 19:35 03/06/24 19:30 03/06/24 17:19 Range/Units White Blood Count 14.3 #H 4.4-10.8 10^3/uL Red Blood Count 4.13 L 4.5-5.90 10^6/uL Hemoglobin 13.3 L 13.5-17.5 g/dL Hematocrit 38.1 L 41.0-53.0 % Mean Corpuscular Volume 92.2 80.0-100.0 fL Mean Corpuscular Hemoglobin 32.1 H 28.0-32.0 pg Mean Corpuscular Hemoglobin Concent 34.8 32.0-36.0 g/dL Red Cell Distribution Width 14.4 H 11.8-14.3 % Platelet Count 352 140-450 10^3/uL Mean Platelet Volume 6.3 L 6.9-10.8 fL Neutrophils (%) (Auto) 81.0 H 37.0-80.0 % Lymphocytes (%) (Auto) 12.9 10.0-50.0 % Monocytes (%) (Auto) 5.2 0.0-12.0 % Eosinophils (%) (Auto) 0.5 0.0-7.0 % Basophils (%) (Auto) 0.4 0.0-2.0 % Neutrophils # (Auto) 11.6 H 1.6-8.6 10 ^3/uL Lymphocytes # (Auto) 1.8 0.4-5.4 10 ^3/uL Monocytes # (Auto) 0.7 0-1.3 10 ^3/uL Eosinophils # (Auto) 0.1 0-0.8 10 ^3/uL Basophils # (Auto) 0.1 0-0.2 10 ^3/uL Nucleated Red Blood Cells 0.1 % Prothrombin Time 10.5 9.3-11.8 sec Prothrombin Time INR 0.99 0.9-1.15 Activated Partial Thromboplast Time 28.2 24.5-34.5 SEC Sodium Level 134 L 136-145 mmol/L Potassium Level 3.5 3.5-5.1 mmol/L Chloride Level 102 98-107 mmol/L Carbon Dioxide Level 26 20-31 mmol/L Anion Gap 6 5-15 Blood Urea Nitrogen 11 9-23 mg/dL Creatinine 0.74 0.700-1.30 mg/dL Glomerular Filtration Rate Calc 97 >90 mL/min BUN/Creatinine Ratio 14.9 10.0-20.0 Serum Glucose 125 H 74-106 mg/dL Calcium Level 8.6 L 8.7-10.4 mg/dL Plasma/Serum Blood Alcohol < 3.0 <10 mg/dL Lactic Acid Level 1.7 0.4-2.0 mmol/L Troponin I High Sensitivity 8 </=54 ng/L Urine Color Yellow Yellow Urine Clarity Clear Clear Urine pH 6.5 5.0-9.0 Urine Specific [place] 1.017 1.001-1.035 Urine Protein 2+ H Negative Urine Ketones Negative Negative Urine Blood Negative Negative /uL Urine Nitrite Negative Negative Urine Bilirubin Negative Negative Urine Urobilinogen Normal Negative mg/dL Urine Leukocyte Esterase Negative Negative /uL Urine RBC 1 0 - 3 /hpf Urine WBC 1 0 - 3 /hpf Urine Squamous Epithelial Cells Few <5 /hpf Urine Bacteria None seen None Seen /hpf Urine Hyaline Casts Few 0 - 2 /lpf Urine Glucose Normal Normal mg/dL Differential Total Cells Counted 100.0 100 Neutrophils % (Manual) 70 37.0-80.0 Band Neutrophils % (Manual) 4 Lymphocytes % (Manual) 22 10.0-50.0 Monocytes % (Manual) 4 0-12 Eosinophils % (Manual) 0 0-7 Basophils % (Manual) 0 0.0-2.0 Metamyelocytes % (manual) 0 Myelocytes % (Manual) 0 Promyelocytes % (Manual) 0 Blast Cells % (Manual) 0 Reactive Lymphocytes 0 Platelet Estimate Adequate Magnesium Level 2.0 1.6-2.6 mg/dL Total Bilirubin 0.6 0.2-1.0 mg/dL Aspartate Amino Transferase (AST) 24 13-40 U/L Alanine Aminotransferase (ALT) 35 7-40 U/L Alkaline Phosphatase 80 46-116 U/L Total Protein 5.7 5.7-8.2 g/dL Albumin 3.6 3.2-4.8 g/dL Assessment ortho fx preop eval afib chronic obesity HTN Plan/Recommendation pt can do all ADLS no active cv issues HR stable lvef normal on echo doac held x 36 hours for now pt can proceed to OR when feasible, from cv perspective cont rate control Plan discussed with: Patient KEVIN DRAKE MD Mar 07, 2024 16:22
--- NOTE | 2024-03-07 16:47 | DVHINCON2 ---
Date of service: Mar 07, 2024 Reason for Consultation Right displaced tibia fracture History of Present Illness 69 [facility] right leg. Immediate pain/swelling/inability to bear weight on right side. No cp/sob/abd pain hx of Maidafib on eliquis - last dose yest Past Medical History AFIB, CAD, HTN Family History: Arthritis G8 FATHER Diabetes mellitus G8 FATHER FH: kidney failure G8 MOTHER Allergies: Coded Allergies: Penicillins (Verified Allergy, Intermediate, ARMPIT RASH, 08/09/23) Home Meds Reported Medications Furosemide (Furosemide) 40 Mg Tab, 1 TAB PO DAILY, #30 TAB 5 Refills 03/07/24 Amiodarone Hcl (Amiodarone Hcl) 200 Mg Tab, 200 MG PO BID, TAB 03/07/24 Metoprolol Succinate (Metoprolol Succinate Er) 50 Mg Tab, 50 MG PO BID, TAB 08/12/23 Hctz (Hydrochlorothiazide) 25 Mg Tab, 25 MG PO DAILY for HTN, TAB 08/09/23 Potassium Chloride (Potassium Chloride ER) 10 Meq Tab, 10 MEQ PO DAILY, TAB 08/09/23 Apixaban Base (ELIQUIS) 5 Mg Tab, 5 MG PO BID for stop on 08/10/23, TAB 08/09/23 Losartan Potassium (Losartan Potassium) 100 Mg Tab, 100 MG PO DAILY for HTN for 30 Days, MG 08/09/23 Atorvastatin Calcium (ATORVASTATIN CALCIUM) 20 Mg Tab, 1 TAB PO QPM 08/06/21 Metoprolol Tartrate (Metoprolol Tartrate) 25 Mg Tab, 50 MG PO QAM for HYPERTENSION, MG 08/06/21 Amlodipine Besylate (Amlodipine Besylate) 10 Mg Tab, 1 TAB PO QAM for HYPERTENSION 08/06/21 Docusate Sodium (Dok) 100 Mg Cap, 100 MG PO DAILY PRN for FOR CONSTIPATION 08/06/21 Current Medications Current Medications Medications (Trade) Dose Ordered Sig/Lea Route PRN Reason Start Time Stop Time Status Last Admin Docusate Sodium (Colace Capsule) 100 mg BIDPRN PRN PO FOR CONSTIPATION 03/06/24 21:30 Acetaminophen (Tylenol Tablet) 650 mg Q6HP PRN PO PAIN SCALE 1-3 OR TEMP>100.4 03/06/24 21:30 Acetaminophen/ Hydrocodone Bitart ([place] 5/325MG Tab) 1 tab Q4HP PRN PO MODERATE PAIN (4-6 PAIN SCALE) 03/06/24 21:30 03/07/24 01:33 Ondansetron HCl (Zofran) 4 mg Q4HP PRN IV NAUSEA / VOMITING 03/06/24 21:30 Morphine Sulfate 2 mg Q4HPRN PRN IV SEVERE PAIN (7-10 PAIN SCALE) 03/06/24 21:30 03/07/24 11:47 Enoxaparin Sodium (Lovenox) 40 mg DAILY SC 03/07/24 10:00 Nitroglycerin (Ntrostat Sublingual) 0.4 mg Q5MINP PRN SL FOR CHEST PAIN 03/06/24 21:30 Morphine Sulfate 2 mg Q30M PRN IV FOR CHEST PAIN 03/06/24 21:30 Hydralazine HCl (Apresoline Injection) 10 mg Q4HPRN PRN IV SBP > 160 03/06/24 21:45 Metoprolol Succinate (Toprol Xl) 100 mg DAILY PO 03/07/24 10:00 Amiodarone HCl (Cordarone Tablet) 200 mg BID PO 03/06/24 22:00 03/06/24 22:15 Review of Systems 10 point ROS is neg except per HPI Vital Signs Vital Signs Date Time Temp Pulse Resp B/P (MAP) Pulse Ox O2 Delivery O2 Flow Rate FiO2 03/07/24 13:00 97.8 74 20 150/79 (102) 98 97.8 03/07/24 08:00 Room Air* 0 21 Physical Exam NAD Aox3 verbal wnwd RLE: splint in place +ehl/fhl foot wwp Labs/Diagnostic Data Labs Test 03/07/24 05:07 03/06/24 19:35 03/06/24 19:30 03/06/24 17:19 Range/Units White Blood Count 14.3 #H 4.4-10.8 10^3/uL Red Blood Count 4.13 L 4.5-5.90 10^6/uL Hemoglobin 13.3 L 13.5-17.5 g/dL Hematocrit 38.1 L 41.0-53.0 % Mean Corpuscular Volume 92.2 80.0-100.0 fL Mean Corpuscular Hemoglobin 32.1 H 28.0-32.0 pg Mean Corpuscular Hemoglobin Concent 34.8 32.0-36.0 g/dL Red Cell Distribution Width 14.4 H 11.8-14.3 % Platelet Count 352 140-450 10^3/uL Mean Platelet Volume 6.3 L 6.9-10.8 fL Neutrophils (%) (Auto) 81.0 H 37.0-80.0 % Lymphocytes (%) (Auto) 12.9 10.0-50.0 % Monocytes (%) (Auto) 5.2 0.0-12.0 % Eosinophils (%) (Auto) 0.5 0.0-7.0 % Basophils (%) (Auto) 0.4 0.0-2.0 % Neutrophils # (Auto) 11.6 H 1.6-8.6 10 ^3/uL Lymphocytes # (Auto) 1.8 0.4-5.4 10 ^3/uL Monocytes # (Auto) 0.7 0-1.3 10 ^3/uL Eosinophils # (Auto) 0.1 0-0.8 10 ^3/uL Basophils # (Auto) 0.1 0-0.2 10 ^3/uL Nucleated Red Blood Cells 0.1 % Prothrombin Time 10.5 9.3-11.8 sec Prothrombin Time INR 0.99 0.9-1.15 Activated Partial Thromboplast Time 28.2 24.5-34.5 SEC Sodium Level 134 L 136-145 mmol/L Potassium Level 3.5 3.5-5.1 mmol/L Chloride Level 102 98-107 mmol/L Carbon Dioxide Level 26 20-31 mmol/L Anion Gap 6 5-15 Blood Urea Nitrogen 11 9-23 mg/dL Creatinine 0.74 0.700-1.30 mg/dL Glomerular Filtration Rate Calc 97 >90 mL/min BUN/Creatinine Ratio 14.9 10.0-20.0 Serum Glucose 125 H 74-106 mg/dL Calcium Level 8.6 L 8.7-10.4 mg/dL Plasma/Serum Blood Alcohol < 3.0 <10 mg/dL Lactic Acid Level 1.7 0.4-2.0 mmol/L Troponin I High Sensitivity 8 </=54 ng/L Urine Color Yellow Yellow Urine Clarity Clear Clear Urine pH 6.5 5.0-9.0 Urine Specific [place] 1.017 1.001-1.035 Urine Protein 2+ H Negative Urine Ketones Negative Negative Urine Blood Negative Negative /uL Urine Nitrite Negative Negative Urine Bilirubin Negative Negative Urine Urobilinogen Normal Negative mg/dL Urine Leukocyte Esterase Negative Negative /uL Urine RBC 1 0 - 3 /hpf Urine WBC 1 0 - 3 /hpf Urine Squamous Epithelial Cells Few <5 /hpf Urine Bacteria None seen None Seen /hpf Urine Hyaline Casts Few 0 - 2 /lpf Urine Glucose Normal Normal mg/dL Differential Total Cells Counted 100.0 100 Neutrophils % (Manual) 70 37.0-80.0 Band Neutrophils % (Manual) 4 Lymphocytes % (Manual) 22 10.0-50.0 Monocytes % (Manual) 4 0-12 Eosinophils % (Manual) 0 0-7 Basophils % (Manual) 0 0.0-2.0 Metamyelocytes % (manual) 0 Myelocytes % (Manual) 0 Promyelocytes % (Manual) 0 Blast Cells % (Manual) 0 Reactive Lymphocytes 0 Platelet Estimate Adequate Magnesium Level 2.0 1.6-2.6 mg/dL Total Bilirubin 0.6 0.2-1.0 mg/dL Aspartate Amino Transferase (AST) 24 13-40 U/L Alanine Aminotransferase (ALT) 35 7-40 U/L Alkaline Phosphatase 80 46-116 U/L Total Protein 5.7 5.7-8.2 g/dL Albumin 3.6 3.2-4.8 g/dL Plan/Recommendation 69 yo M sp fall with displaced Right tibia fracture 1. A long and thorough discussion held with patient regarding his condition. Questions for patient answered. Risks benefits options and alternatives reviewed in depth. Risks include but not exclusive to bleeding infection nerve injury hardware failure nonunion malunion chronic pain blood clots cardiac and pulmonary complications amputation and . Patient understands and wishes to proceed with surgery 2. Plan for open reduction internal fixation of right tibia fracture 3. NPO/IVF 4. Pain control Plan discussed with: Patient JETT SAINZ MD Mar 07, 2024 16:47
[2024-03-07] MEDS: TRANEXAMIC ACID 20 ML ONE (17:03)
[2024-03-07] MEDS ORDERED: HYDROmorphone HCL 2 MG/ML VL/or syr ONE (17:05)
[2024-03-07] MEDS: ROPIVACAINE 0.5% (5MG/ML) 20ML AMPULE IJ ONE ×2 (17:26→17:29)
[2024-03-07] MEDS ORDERED: ONDANSETRON HCL 4 MG/2 ML VIAL ONE (17:58)
[2024-03-07] MEDS ORDERED: KETOROLAC TROMETH 30 MG/ML 1ML VIAL ONE (17:58)
[2024-03-07] MEDS ORDERED: DexAMETHasone SOD PHOS 10MG/1ML VIAL INJ ONE (17:58)
[2024-03-07] MEDS ORDERED: NEOSTIGMINE 1 MG/ML INJ (10mg/10ML VIAL) ONE (18:05)
[2024-03-07] MEDS ORDERED: GLYCOPYRROLATE 0.2 MG/ML 1ML VIAL ONE (18:05)
[2024-03-07] MEDS ORDERED: SUGAMMADEX 200mg/2ml Vial (100MG/ML) IV ONE (18:36)
[2024-03-07] MEDS: ONDANSETRON HCL 4 MG/2 ML VIAL IV ONE (18:45)
[2024-03-07] MEDS ORDERED: HYDROmorphone HCL 2 MG/ML VL/or syr IV PRN (18:45)
[2024-03-07] MEDS ORDERED: ePHEDrine SULFATE 50 MG/ML AMP IV PRN (18:45)
--- NOTE | 2024-03-07 18:50 | DVH ---
EXAMINATION: ORIF of the right tibia CLINICAL HISTORY: ORIF RIGHT TIBIA TECHNIQUE: 7 images were obtained with an image intensifier centered over the right tibia. Total fluo roscopy time was 114.6 seconds. Cumulative dose 4.04 mGy. The radiologist was not present for the exa mination. COMPARISON: None Findings and impression: Fluoroscopy provided during ORIF of the right tibia. Please see final surgical report for further det ails.
[2024-03-08] VITALS (8 sets, daily range): BP systolic 111–159; BP diastolic 64–80; PULSE 67–107; RESP 16–19; TEMP 97.6–99; O2SAT 95–98
[2024-03-08 06:07] LABS: Basophils # (auto) 0 10 ^3/uL (0-0.2); Basophils % (auto) 0.1 % (0.0-2.0); Eosinophils # (auto) 0 10 ^3/uL (0-0.8); Hematocrit 38.2 % (41.0-53.0); Lymphocytes # (auto) 0.6 10 ^3/uL (0.4-5.4); Lymphocytes % (auto) 4.7 % (10.0-50.0); Mean Corpuscular Hemoglobin 31.5 pg (28.0-32.0); Mean Corpuscular Volume 92.7 fL (80.0-100.0); Monocytes # (auto) 0.4 10 ^3/uL (0-1.3); Monocytes % (auto) 3.3 % (0.0-12.0); Neutrophils # (auto) 11.8 10 ^3/uL (1.6-8.6); Neutrophils % (auto) 91.9 % (37.0-80.0); Platelet Count (auto) 305 10^3/uL (140-450); Red Blood Cells 4.12 10^6/uL (4.5-5.90); Red Cell Distribution Width 14.7 % (11.8-14.3); White Blood Cell 12.9 10^3/uL (4.4-10.8)
[2024-03-08 06:20] LABS: Anion Gap 6 (5-15); Carbon Dioxide 26 mmol/L (20-31); Chloride 100 mmol/L (98-107); Potassium 4.8 mmol/L (3.5-5.1); Sodium 132 mmol/L (136-145)
[2024-03-08 06:22] LABS: Calcium 8.9 mg/dL (8.7-10.4)
[2024-03-08 06:27] LABS: BUN/Creatinine Ratio 14.8 (10.0-20.0); Blood Urea Nitrogen 18 mg/dL (9-23); Glucose 204 mg/dL (74-106)
--- NOTE | 2024-03-08 12:06 | DVHPN2 ---
Progress Note Date Seen: Mar 08, 2024 Medical Necessity Reason Pt with a Central, PICC or Fol: No Subjective Other Systems: surgery today rate controlled on tele Objective vital signs Vital Sign Date Time Temp Pulse Resp B/P (MAP) Pulse Ox O2 Delivery O2 Flow Rate FiO2 03/08/24 10:58 99 127/74 03/08/24 09:00 99.0 16 97 99.0 03/07/24 20:00 Nasal Cannula* 2 28 Total Intake and Output 03/07/24 03/07/24 03/08/24 15:00 23:00 07:00 Intake Total 240 ml 120 ml Output Total 400 ml Balance -160 ml 120 ml medications Current Medications Medications Dose Ordered Sig/Lea Route Start Time Stop Time Status Last Admin Dose Admin Docusate Sodium 100 mg BIDPRN PRN PO 03/06/24 21:30 Acetaminophen 650 mg Q6HP PRN PO 03/06/24 21:30 Acetaminophen/ Hydrocodone Bitart 1 tab Q4HP PRN PO 03/06/24 21:30 03/08/24 08:11 1 TAB Ondansetron HCl 4 mg Q4HP PRN IV 03/06/24 21:30 Morphine Sulfate 2 mg Q4HPRN PRN IV 03/06/24 21:30 03/07/24 11:47 2 MG Enoxaparin Sodium 40 mg DAILY SC 03/07/24 10:00 03/08/24 10:48 40 MG Nitroglycerin 0.4 mg Q5MINP PRN SL 03/06/24 21:30 Morphine Sulfate 2 mg Q30M PRN IV 03/06/24 21:30 Hydralazine HCl 10 mg Q4HPRN PRN IV 03/06/24 21:45 Metoprolol Succinate 100 mg DAILY PO 03/07/24 10:00 03/08/24 10:58 100 MG Amiodarone HCl 200 mg BID PO 03/06/24 22:00 03/08/24 10:48 200 MG Cefazolin Sodium 50 ml @ 100 mls/hr Q8HR IV 03/07/24 22:00 Examination: GENERAL:Abnormal, HEENT:Abnormal, LUNGS:Abnormal, CVS:Abnormal, ABDOMEN:Abnormal laboratory and microbiology Laboratory Tests 03/08/24 05:27 Test 03/08/24 05:27 Range/Units Serum Glucose 204 H 74-106 mg/dL Problem List/Assessment/Plan Problem List/Assessment/Plan preop eval htn afib chronic rate controlled hold doac elevated cva risk resume doac when feasible prn beta blockers normal lvef on echo ok to proceed to surgery as per note 03/07 Plan discussed with: Patient Date of Service: Mar 08, 2024 Billing Provider: KEVIN DRAKE MD Common Visit Codes: NOT BILLABLE KEVIN DRAKE MD Mar 08, 2024 12:06
--- NOTE | 2024-03-08 12:06 | DVHOP2 ---
Operative Report - 2 Report Details Date: 03/07/24 Preop Diagnosis: Right distal tibia fracture Postop Diagnosis: as above Surgeon: Savage Kemp MD Anesthesiologist: Jagjit ARELLANO Anesthesia: General Implant: AOS Tibia nail with 2 screws Consent: The patient was informed of the risks and benefits of the procedure. These include but are not limited to complications of anesthesia, postoperative infection, incomplete relief of symptoms, recurrence of symptoms, damage to blood vessels, nerves and tendons, deep venous thrombosis, pulmonary embolism and possible need for repeat surgery in the future. Estimated Blood Loss: 50 cc Name of Procedure Performed Open reduction internal fixation of right tibia fracture; fluoro Procedure Details Procedure Details: In the preoperative holding area, the consent was reviewed and the appropriate extremity was verified by the patient and marked with my initials. The patient was then transferred to the operating theatre. Appropriate anesthesia was ulices reinier. All bony prominences were well padded. A time out was performed verifying the side and site of surgery according to standard protocol. Preoperative antibiotics were given. Risks/benefits/options and alternatives were reviewed in depth with patient and his girlfriend. Patient and family understand this. Risks include but not limited to bleeding, infection, nerve injury, hardware failure, malunion, nonunion, chronic pain, stiffness, amputation, deep venous thrombosis and . A right pneumatic thigh tourniquet was placed about the patient's thigh. The lower extremity was then scrubbed, prepped and draped in the usual aseptic manner. The lower extremity was elevated and exsanguinated using an Esmarch bandage. The tourniquet was then inflated. Patient had a soft tissue wound over fracture site with fracture blisters medially. Attention was then directed to the standard tibial nail technique. We made a 4 cm incision over the medial patella tendon, paratenon was split with layer kept intact, we went lateral to the patella tendon. Using fluoro, we had correct start point with our entry pin on AP and lateral xray. We then put our starter reamer in place. We used manual reduction techniques in addition to to a stab incision at fracture site to help the reduction as she has a spiral fracture. We gentle reamed up to a 12. We then placed a 11 tibial AOS nail. We did a static screw locking screw proximally fluroscopy. Screws were deemed proper length. We placed a distal screw. The tourniquet was deflated and prompt hemostasis was achieved. Local injection of lidocaine and marcaine plain was injected. The area was then copiously flushed with normal sterile saline and closed in a layered fashion utilizing 2-0 Vicryl and a 3-0 nylon. Dressings were then applied consisting of Adaptic, 4 x 4s, Steph, Kerlix and sterile Webril. Next, a multi-layer dressing consisting of cast padding and Sarthak bandages were placed about to the patient's left leg distal to the patient's knee. Cam boot placed on patient. Postop plan: Dressing changes as needed NWB RLE Pain control PT fu with ortho in 2 weeks Condition Fair Disposition Still a Patient SAVAGE KEMP MD Mar 08, 2024 12:06
[2024-03-08] MEDS: ceFAZolin 1GM/50ML 50 ML IV SCH (14:23)
[2024-03-08] MEDS: DOCUSATE SOD 100 MG CAP PO PRN (14:24)
--- NOTE | 2024-03-08 16:22 | DVHPN2 ---
Subjective Patient was status post open reduction and internal fixation of distal right tibia Reviewed: Care Plan Changes from previous H/P or p: No Changes Eyes: No Pain, No Vision change, No Conjunctivae inflammation, No Eyelid inflammation, No Other, No Redness ENT: No Ear pain, No Ear discharge, No Nose pain, No Nose discharge, No Nose congestion, No Mouth pain, No Mouth swelling, No Throat pain, No Throat swelling, No Other Cardiovascular: No Chest Pain, No Palpitations, No Orthopnea, No Paroxysmal Noc. Dyspnea, No Edema, No Lt Headedness, No Other Respiratory: No Cough, No Dry, No Shortness of breath, No SOB with excertion, No Wheezing, No Hemoptysis, No Pleuritic Pain, No Sputum, No Other Gastrointestinal: No Nausea, No Vomiting, No Abdominal Pain, No Diarrhea, No Constipation, No Melena, No Hematochezia, No Other Genitourinary: No Dysuria, No Frequency, No Incontinence, No Hematuria, No Retention, No Other Musculoskeletal: No other, No neck pain, No shoulder pain, No arm pain, No back pain, No hand pain; leg pain, foot pain Skin: No Rash, No Lesions, No Jaundice, No Bruising, No Other Objective Vitals Vital Signs Date Time Temp Pulse Resp B/P (MAP) Pulse Ox O2 Delivery O2 Flow Rate FiO2 03/08/24 13:12 97.7 67 18 134/80 (98) 98 97.7 03/08/24 08:00 Nasal Cannula* 2 28 Intake/Output Intake and Output 03/08/24 07:00 Intake Total 360 ml Output Total 400 ml Balance -40 ml Intake Oral 360 ml Output Urine Total 400 ml Exam HEENT pupils are reactive Neck is supple CV is S1-S2 regular rate and rhythm Respiratory bilateral clear GI posterior portion Extremity no edema [employer] no motor deficit, accept right lower extremity can not be tested because of recent surgery on the right distal tibia. Medications Current Medications Medications Dose Ordered Sig/Lea Route Start Time Stop Time Status Last Admin Dose Admin Docusate Sodium 100 mg BIDPRN PRN PO 03/06/24 21:30 03/08/24 14:24 100 MG Acetaminophen 650 mg Q6HP PRN PO 03/06/24 21:30 Acetaminophen/ Hydrocodone Bitart 1 tab Q4HP PRN PO 03/06/24 21:30 03/08/24 08:11 1 TAB Ondansetron HCl 4 mg Q4HP PRN IV 03/06/24 21:30 Morphine Sulfate 2 mg Q4HPRN PRN IV 03/06/24 21:30 03/07/24 11:47 2 MG Enoxaparin Sodium 40 mg DAILY SC 03/07/24 10:00 03/08/24 10:48 40 MG Nitroglycerin 0.4 mg Q5MINP PRN SL 03/06/24 21:30 Morphine Sulfate 2 mg Q30M PRN IV 03/06/24 21:30 Hydralazine HCl 10 mg Q4HPRN PRN IV 03/06/24 21:45 Metoprolol Succinate 100 mg DAILY PO 03/07/24 10:00 03/08/24 10:58 100 MG Amiodarone HCl 200 mg BID PO 03/06/24 22:00 03/08/24 10:48 200 MG Cefazolin Sodium 50 ml @ 100 mls/hr Q8HR IV 03/07/24 22:00 03/08/24 14:23 100 MLS/HR Laboratory Results Laboratory Tests 03/08/24 05:27 Chemistry Test 03/08/24 05:27 Calcium Level 8.9 mg/dL (8.7-10.4) Urinalysis Test 03/06/24 19:30 Urine Color Yellow (Yellow) Urine Clarity Clear (Clear) Urine pH 6.5 (5.0-9.0) Urine Specific [place] 1.017 (1.001-1.035) Urine Protein 2+ (Negative) H Urine Ketones Negative (Negative) Urine Blood Negative /uL (Negative) Urine Nitrite Negative (Negative) Urine Bilirubin Negative (Negative) Urine Urobilinogen Normal mg/dL (Negative) Urine Leukocyte Esterase Negative /uL (Negative) Urine RBC 1 /hpf (0 - 3) Urine WBC 1 /hpf (0 - 3) Urine Squamous Epithelial Cells Few /hpf (<5) Urine Bacteria None seen /hpf (None Seen) Urine Hyaline Casts Few /lpf (0 - 2) Urine Glucose Normal mg/dL (Normal) Assessment/Plan Assessment/Plan 69-year-old male with a known history of hypertension, dyslipidemia, chronic AFib currently on Eliquis, known coronary artery disease status post PCI with two stents, two years ago presented to the hospital with mechanical fall found to have 1. Acute comminuted spiral fracture of distal tibia with displacement of proximal segment status post mechanical fall status post open reduction and internal fixation 2. Acute alcoholic intoxication 3. Coronary artery disease status post PCI 4. Chronic AFib, currently on Eliquis last dose yesterday morning 5. Status post PPM 6. Hypertension 7. Dyslipidemia -resume Eliquis, physical therapy evaluation treatment -pain meds, orthopedics follow up. Plan discussed with: Patient, Spouse My Orders Orders - OSWALDO YUNG MD Procedure Category Date Status Time C Arm Fluoroscopy Up XY 03/07/24 Resulted To 60min 18:18 R Tib Fib Xray XY 03/07/24 Resulted 18:19 Cardiac DIET 03/08/24 Transmitted Diet-2gna,Lofat,Lochol Lunch Date of Service: Mar 08, 2024 Billing Provider: OSWALDO YUNG MD Common Visit Codes: NOT BILLABLE OSWALDO YUNG MD Mar 08, 2024 16:22
[2024-03-08] MEDS: APIXABAN 5 MG TAB PO SCH (18:00)
[2024-03-09] VITALS (7 sets, daily range): BP systolic 127–142; BP diastolic 72–85; PULSE 70–95; RESP 18–20; TEMP 97.5–98.6; O2SAT 97–98
[2024-03-09 06:57] LABS: Calcium 9.2 mg/dL (8.7-10.4); Chloride 101 mmol/L (98-107); Potassium 4.5 mmol/L (3.5-5.1); Sodium 134 mmol/L (136-145)
[2024-03-09 06:58] LABS: Anion Gap 5 (5-15); Carbon Dioxide 28 mmol/L (20-31)
[2024-03-09 07:03] LABS: BUN/Creatinine Ratio 21.7 (10.0-20.0); Blood Urea Nitrogen 23 mg/dL (9-23); Glucose 140 mg/dL (74-106)
[2024-03-09 07:38] LABS: Basophils # (auto) 0 10 ^3/uL (0-0.2); Basophils % (auto) 0.4 % (0.0-2.0); Eosinophils # (auto) 0 10 ^3/uL (0-0.8); Eosinophils % (auto) 0.3 % (0.0-7.0); Hematocrit 35.4 % (41.0-53.0); Hemoglobin 12.1 g/dL (13.5-17.5); Lymphocytes # (auto) 1.2 10 ^3/uL (0.4-5.4); Lymphocytes % (auto) 12.3 % (10.0-50.0); Mean Corpuscular Hemoglobin 31.8 pg (28.0-32.0); Mean Corpuscular Hgb Conc. 34.1 g/dL (32.0-36.0); Mean Corpuscular Volume 93.1 fL (80.0-100.0); Monocytes # (auto) 0.5 10 ^3/uL (0-1.3); Monocytes % (auto) 4.9 % (0.0-12.0); Neutrophils # (auto) 8.3 10 ^3/uL (1.6-8.6); Neutrophils % (auto) 82.1 % (37.0-80.0); Platelet Count (auto) 274 10^3/uL (140-450); Red Cell Distribution Width 14.7 % (11.8-14.3); White Blood Cell 10.1 10^3/uL (4.4-10.8)
--- NOTE | 2024-03-09 15:46 | DVHDS2 ---
Discharge Summary Date of Admission Mar 06, 2024 at 21:24 Date of Discharge: Mar 09, 2024 Labs/Diagnostic Data: Laboratory Results Test 03/09/24 06:19 03/07/24 05:07 03/06/24 19:35 03/06/24 19:30 White Blood Count 10.1 10^3/uL (4.4-10.8) Red Blood Count 3.80 10^6/uL (4.5-5.90) Hemoglobin 12.1 g/dL (13.5-17.5) Hematocrit 35.4 % (41.0-53.0) Mean Corpuscular Volume 93.1 fL (80.0-100.0) Mean Corpuscular Hemoglobin 31.8 pg (28.0-32.0) Mean Corpuscular Hemoglobin Concent 34.1 g/dL (32.0-36.0) Red Cell Distribution Width 14.7 % (11.8-14.3) Platelet Count 274 10^3/uL (140-450) Mean Platelet Volume 6.8 fL (6.9-10.8) Neutrophils (%) (Auto) 82.1 % (37.0-80.0) Lymphocytes (%) (Auto) 12.3 % (10.0-50.0) Monocytes (%) (Auto) 4.9 % (0.0-12.0) Eosinophils (%) (Auto) 0.3 % (0.0-7.0) Basophils (%) (Auto) 0.4 % (0.0-2.0) Neutrophils # (Auto) 8.3 10 ^3/uL (1.6-8.6) Lymphocytes # (Auto) 1.2 10 ^3/uL (0.4-5.4) Monocytes # (Auto) 0.5 10 ^3/uL (0-1.3) Eosinophils # (Auto) 0 10 ^3/uL (0-0.8) Basophils # (Auto) 0 10 ^3/uL (0-0.2) Nucleated Red Blood Cells 0.0 % Sodium Level 134 mmol/L (136-145) Potassium Level 4.5 mmol/L (3.5-5.1) Chloride Level 101 mmol/L (98-107) Carbon Dioxide Level 28 mmol/L (20-31) Anion Gap 5 (5-15) Blood Urea Nitrogen 23 mg/dL (9-23) Creatinine 1.06 mg/dL (0.700-1.30) Glomerular Filtration Rate Calc 76 mL/min (>90) BUN/Creatinine Ratio 21.7 (10.0-20.0) Serum Glucose 140 mg/dL (74-106) Calcium Level 9.2 mg/dL (8.7-10.4) Prothrombin Time 10.5 sec (9.3-11.8) Prothrombin Time INR 0.99 (0.9-1.15) Activated Partial Thromboplast Time 28.2 SEC (24.5-34.5) Plasma/Serum Blood Alcohol < 3.0 mg/dL (<10) Lactic Acid Level 1.7 mmol/L (0.4-2.0) Troponin I High Sensitivity 8 ng/L (</=54) Urine Color Yellow (Yellow) Urine Clarity Clear (Clear) Urine pH 6.5 (5.0-9.0) Urine Specific [place] 1.017 (1.001-1.035) Urine Protein 2+ (Negative) Urine Ketones Negative (Negative) Urine Blood Negative /uL (Negative) Urine Nitrite Negative (Negative) Urine Bilirubin Negative (Negative) Urine Urobilinogen Normal mg/dL (Negative) Urine Leukocyte Esterase Negative /uL (Negative) Urine RBC 1 /hpf (0 - 3) Urine WBC 1 /hpf (0 - 3) Urine Squamous Epithelial Cells Few /hpf (<5) Urine Bacteria None seen /hpf (None Seen) Urine Hyaline Casts Few /lpf (0 - 2) Urine Glucose Normal mg/dL (Normal) Test 03/06/24 17:19 Differential Total Cells Counted 100.0 (100) Neutrophils % (Manual) 70 (37.0-80.0) Band Neutrophils % (Manual) 4 Lymphocytes % (Manual) 22 (10.0-50.0) Monocytes % (Manual) 4 (0-12) Eosinophils % (Manual) 0 (0-7) Basophils % (Manual) 0 (0.0-2.0) Metamyelocytes % (manual) 0 Myelocytes % (Manual) 0 Promyelocytes % (Manual) 0 Blast Cells % (Manual) 0 Reactive Lymphocytes 0 Platelet Estimate Adequate Magnesium Level 2.0 mg/dL (1.6-2.6) Total Bilirubin 0.6 mg/dL (0.2-1.0) Aspartate Amino Transferase (AST) 24 U/L (13-40) Alanine Aminotransferase (ALT) 35 U/L (7-40) Alkaline Phosphatase 80 U/L (46-116) Total Protein 5.7 g/dL (5.7-8.2) Albumin 3.6 g/dL (3.2-4.8) Other Laboratory Tests 03/09/24 06:19 Brief Hx & Hospital Course: 69-year-old male with a known history of hypertension, dyslipidemia, chronic AFib currently on Eliquis, known coronary artery disease status post PCI with two stents, t recently had abdominal hernia surgery presented to the hospital with a mechanical fall after he was alcoholic intoxicated found to have right distal tibia fracture. Patient was cleared by Cardiology as well as medically. Patient underwent surgical intervention in which open reduction and internal fixation of distal tibia was done. Postoperatively patient did fairly well. Patient did qualify for snf facility as he is walking on a few steps with the physical therapy. Patient is currently understand verbalized understanding and agreeable to plan. Condition at Discharge: Stable Final Diagnosis/Problems List 1. Acute comminuted spiral fracture of distal tibia with displacement of proximal segment status post mechanical fall status post open reduction and internal fixation 2. Acute alcoholic intoxication, drug rehab as an outpatient 3. Coronary artery disease status post PCI 4. Chronic AFib, currently on Eliquis last dose yesterday morning 5. Status post PPM 6. Hypertension 7. Dyslipidemia Discharge Disposition: [facility] Discharge Instruct/Medications Diet: Cardiac 2g Na,low cholest Activity: See Comment Activity comment: As tolerated with physical therapy assistance Follow Up/Referral: Follow up with the PCP in 1-2 weeks Follow up with [facility] in 1-2 weeks Follow up with Dr. Savage Kemp in one two to be Medications: As reconciled Discharge Statement: "Patient was advised to return to the ER or call 911 if any headaches, dizziness, shortness of breath, chest pain, abdominal pain, bleeding, fevers, or worsening of medical condition. Patient was counseled about treatment plan, medications, possible side effects, patientverbalized understanding. All questions were answered to the best of my ability. This discharge took greater then 30 minutes in planning, reviewing documentation, counseling the patient, and discussing with other team members." ASSESSMENT ASSESSMENT Assessment 69-year-old male with a known history of hypertension, dyslipidemia, chronic AFib currently on Eliquis, known coronary artery disease status post PCI with two stents, two years ago presented to the hospital with mechanical fall found to have 1. Acute comminuted spiral fracture of distal tibia with displacement of proximal segment status post mechanical fall status post open reduction and internal fixation 2. Acute alcoholic intoxication, drug rehab as an outpatient 3. Coronary artery disease status post PCI 4. Chronic AFib, currently on Eliquis last dose yesterday morning 5. Status post PPM 6. Hypertension 7. Dyslipidemia Date of Service: Mar 09, 2024 Billing Provider: OSWALDO YUNG MD Common Visit Codes: NOT BILLABLE OSWALOD YUNG MD Mar 09, 2024 15:46
[2024-03-09] MEDS: SENNA 8.6 MG TAB PO SCH (21:17)
[2024-03-10] VITALS (8 sets, daily range): BP systolic 122–134; BP diastolic 74–89; PULSE 66–98; RESP 14–20; TEMP 97.6–98.3; O2SAT 95–98
[2024-03-10] MEDS: ONDANSETRON HCL 4 MG/2 ML VIAL IV PRN (01:16)
[2024-03-10 06:23] LABS: Anion Gap 6 (5-15); Carbon Dioxide 30 mmol/L (20-31); Chloride 93 mmol/L (98-107); Potassium 3.9 mmol/L (3.5-5.1)
[2024-03-10 06:25] LABS: Basophils # (auto) 0 10 ^3/uL (0-0.2); Basophils % (auto) 0.4 % (0.0-2.0); Calcium 9.6 mg/dL (8.7-10.4); Eosinophils # (auto) 0 10 ^3/uL (0-0.8); Eosinophils % (auto) 0.4 % (0.0-7.0); Hematocrit 34.3 % (41.0-53.0); Hemoglobin 12.1 g/dL (13.5-17.5); Lymphocytes # (auto) 0.9 10 ^3/uL (0.4-5.4); Lymphocytes % (auto) 9.8 % (10.0-50.0); Mean Corpuscular Hemoglobin 32.4 pg (28.0-32.0); Mean Corpuscular Hgb Conc. 35.1 g/dL (32.0-36.0); Mean Corpuscular Volume 92.1 fL (80.0-100.0); Monocytes # (auto) 0.4 10 ^3/uL (0-1.3); Monocytes % (auto) 4.5 % (0.0-12.0); Neutrophils # (auto) 8.1 10 ^3/uL (1.6-8.6); Neutrophils % (auto) 84.9 % (37.0-80.0); Platelet Count (auto) 284 10^3/uL (140-450); Red Blood Cells 3.73 10^6/uL (4.5-5.90); Red Cell Distribution Width 14.4 % (11.8-14.3); White Blood Cell 9.5 10^3/uL (4.4-10.8)
[2024-03-10 06:29] LABS: Glucose 159 mg/dL (74-106)
[2024-03-10 06:30] LABS: BUN/Creatinine Ratio 14.3 (10.0-20.0); Blood Urea Nitrogen 14 mg/dL (9-23)
[2024-03-10 06:59] LABS: Sodium 129 mmol/L (136-145)
--- NOTE | 2024-03-10 08:46 | DVHPN2 ---
Progress Note Date Seen: Mar 10, 2024 Medical Necessity Reason Pt with a Central, PICC or Fol: No Subjective Patient reports: No new complaints (pain with walking as expected; working with PT) Objective vital signs Vital Sign Date Time Temp Pulse Resp B/P (MAP) Pulse Ox O2 Delivery O2 Flow Rate FiO2 03/10/24 08:41 75 19 124/80 03/10/24 05:00 97.6 95 97.6 03/09/24 20:00 Nasal Cannula* 2 28 Total Intake and Output 03/09/24 03/09/24 03/10/24 15:00 23:00 07:00 Intake Total 650 ml 850 ml 850 ml Output Total 225 ml Balance 650 ml 625 ml 850 ml medications Current Medications Medications Dose Ordered Sig/Lea Route Start Time Stop Time Status Last Admin Dose Admin Docusate Sodium 100 mg BIDPRN PRN PO 03/06/24 21:30 03/09/24 21:18 100 MG Acetaminophen 650 mg Q6HP PRN PO 03/06/24 21:30 Ondansetron HCl 4 mg Q4HP PRN IV 03/06/24 21:30 03/10/24 01:16 4 MG Morphine Sulfate 2 mg Q4HPRN PRN IV 03/06/24 21:30 03/10/24 08:41 2 MG Nitroglycerin 0.4 mg Q5MINP PRN SL 03/06/24 21:30 Morphine Sulfate 2 mg Q30M PRN IV 03/06/24 21:30 Hydralazine HCl 10 mg Q4HPRN PRN IV 03/06/24 21:45 Metoprolol Succinate 100 mg DAILY PO 03/07/24 10:00 03/09/24 09:05 100 MG Amiodarone HCl 200 mg BID PO 03/06/24 22:00 03/09/24 21:18 200 MG Cefazolin Sodium 50 ml @ 100 mls/hr Q8HR IV 03/07/24 22:00 03/10/24 06:02 100 MLS/HR Apixaban 5 mg BIDPC PO 03/08/24 19:00 03/10/24 08:41 5 MG Sennosides 17.2 mg HS PO 03/09/24 22:00 03/09/24 21:17 17.2 MG Acetaminophen/ Hydrocodone Bitart 1 tab Q4HP PRN PO 03/10/24 07:30 Examination: GENERAL:Normal, MSK:Normal laboratory and microbiology Laboratory Tests 03/10/24 05:24 Test 03/10/24 05:24 Range/Units Serum Glucose 159 H 74-106 mg/dL Problem List/Assessment/Plan Problem List/Assessment/Plan 69 yo M sp ORIF right tibia fracture 1. NWB RLE 2. walker 3. pain control 4. dvt ppx 5. okay to change dressing as needed 6. continue cam boot -- okay to take boot off while in bed for comfort 7. follow up in Dr. Kemp clinic in 2 weeks Plan discussed with: Patient My Orders My Orders Orders - JETT KEMP MD Procedure Category Date Status Time Hydrocodone-Acet PHA 03/10/24 In Process 10/325mg Tab ([place] 07:30 JETT KEMP MD Mar 10, 2024 08:46
[2024-03-10] MEDS: POLYETHYLENE GLYCOL 17 GM PWDR PO PRN (12:50)
[2024-03-10] MEDS: LACTULOSE 20Gm/30ML SOLN PO PRN (16:35)
--- NOTE | 2024-03-10 16:46 | DVHPN2 ---
Subjective Patient was status post open reduction and internal fixation of distal right tibia. Overnight events noted. Patient does not have any volume to and he has stated that he was not passing gas today. Stat x-ray has been noted as well as CT of the abdomen and pelvis. Aspiration precautions, patient may need NG tube once exudate or CT confirms Neha ileus/small-bowel obstruction Reviewed: Care Plan Changes from previous H/P or p: No Changes, Changes Eyes: No Pain, No Vision change, No Conjunctivae inflammation, No Eyelid inflammation, No Other, No Redness ENT: No Ear pain, No Ear discharge, No Nose pain, No Nose discharge, No Nose congestion, No Mouth pain, No Mouth swelling, No Throat pain, No Throat swelling, No Other Cardiovascular: No Chest Pain, No Palpitations, No Orthopnea, No Paroxysmal Noc. Dyspnea, No Edema, No Lt Headedness, No Other Respiratory: No Cough, No Dry, No Shortness of breath, No SOB with excertion, No Wheezing, No Hemoptysis, No Pleuritic Pain, No Sputum, No Other Gastrointestinal: No Nausea, No Vomiting, No Abdominal Pain, No Diarrhea, No Constipation, No Melena, No Hematochezia, No Other Genitourinary: No Dysuria, No Frequency, No Incontinence, No Hematuria, No Retention, No Other Musculoskeletal: No other, No neck pain, No shoulder pain, No arm pain, No back pain, No hand pain; leg pain, foot pain Skin: No Rash, No Lesions, No Jaundice, No Bruising, No Other Objective Vitals Vital Signs Date Time Temp Pulse Resp B/P (MAP) Pulse Ox O2 Delivery O2 Flow Rate FiO2 03/10/24 13:01 66 14 126/89 03/10/24 12:51 98.3 97 98.3 03/10/24 08:00 Nasal Cannula* 2 28 Intake/Output Intake and Output 03/10/24 07:00 Intake Total 2350 ml Output Total 225 ml Balance 2125 ml Intake Oral 2200 ml IV Total 150 ml Output Urine Total 225 ml # Voids 2 Exam HEENT pupils are reactive Neck is supple CV is S1-S2 regular rate and rhythm Respiratory bilateral clear GI sluggish bowel sounds., mildly distended but nontender no guarding no rigidity 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 Medications Current Medications Medications Dose Ordered Sig/Lea Route Start Time Stop Time Status Last Admin Dose Admin Docusate Sodium 100 mg BIDPRN PRN PO 03/06/24 21:30 03/09/24 21:18 100 MG Acetaminophen 650 mg Q6HP PRN PO 03/06/24 21:30 Ondansetron HCl 4 mg Q4HP PRN IV 03/06/24 21:30 03/10/24 12:49 4 MG Morphine Sulfate 2 mg Q4HPRN PRN IV 03/06/24 21:30 03/10/24 13:01 2 MG Nitroglycerin 0.4 mg Q5MINP PRN SL 03/06/24 21:30 Morphine Sulfate 2 mg Q30M PRN IV 03/06/24 21:30 Hydralazine HCl 10 mg Q4HPRN PRN IV 03/06/24 21:45 Metoprolol Succinate 100 mg DAILY PO 03/07/24 10:00 03/10/24 09:28 100 MG Amiodarone HCl 200 mg BID PO 03/06/24 22:00 03/10/24 09:28 200 MG Cefazolin Sodium 50 ml @ 100 mls/hr Q8HR IV 03/07/24 22:00 03/10/24 13:03 100 MLS/HR Apixaban 5 mg BIDPC PO 03/08/24 19:00 03/10/24 08:41 5 MG Sennosides 17.2 mg HS PO 03/09/24 22:00 03/09/24 21:17 17.2 MG Acetaminophen/ Hydrocodone Bitart 1 tab Q4HP PRN PO 03/10/24 07:30 Polyethylene Glycol 17 gm BID PRN PO 03/10/24 12:15 03/10/24 12:50 17 GM Lactulose 30 ml TIDPRN PRN PO 03/10/24 14:45 03/10/24 16:35 30 ML Laboratory Results Laboratory Tests 03/10/24 05:24 Chemistry Test 03/10/24 05:24 Calcium Level 9.6 mg/dL (8.7-10.4) Urinalysis Test 03/06/24 19:30 Urine Color Yellow (Yellow) Urine Clarity Clear (Clear) Urine pH 6.5 (5.0-9.0) Urine Specific [place] 1.017 (1.001-1.035) Urine Protein 2+ (Negative) H Urine Ketones Negative (Negative) Urine Blood Negative /uL (Negative) Urine Nitrite Negative (Negative) Urine Bilirubin Negative (Negative) Urine Urobilinogen Normal mg/dL (Negative) Urine Leukocyte Esterase Negative /uL (Negative) Urine RBC 1 /hpf (0 - 3) Urine WBC 1 /hpf (0 - 3) Urine Squamous Epithelial Cells Few /hpf (<5) Urine Bacteria None seen /hpf (None Seen) Urine Hyaline Casts Few /lpf (0 - 2) Urine Glucose Normal mg/dL (Normal) Assessment/Plan Assessment/Plan 69-year-old male with a known history of hypertension, dyslipidemia, chronic AFib currently on Eliquis, known coronary artery disease status post PCI with two stents, two years ago presented to the hospital with mechanical fall found to have 1. Acute comminuted spiral fracture of distal tibia with displacement of proximal segment status post mechanical fall status post open reduction and internal fixation 2. Nausea vomiting rule out small-bowel obstruction 3. Coronary artery disease status post PCI 4. Chronic AFib, currently on Eliquis last dose yesterday morning 5. Status post PPM 6. Hypertension 7. Dyslipidemia 8. Constipation rule out bowel obstruction -stat abdominal x-ray to small-bowel obstruction, CT abdomen and pelvis, May 20 consultation Aspiration precaution May need NG tube if x-ray abdomen/CT abdomen confirms bowel obstruction versus ileus. Plan discussed with: Patient My Orders Orders - OSWALDO YUNG MD Procedure Category Date Status Time Polyethylene Glycol PHA 03/10/24 In Process 17g Powder (Miralax 12:15 Lactulose Oral PHA 03/10/24 In Process 14:45 Date of Service: Mar 10, 2024 Billing Provider: OSWALDO YUNG MD Common Visit Codes: NOT BILLABLE OSWALDO YUNG MD Mar 10, 2024 16:46
[2024-03-10] MEDS: metroNIDAZOLE 500MG/100ML 100 ML IV SCH (17:33)
--- NOTE | 2024-03-10 18:00 | DVH ---
EXAM: XY ACUTE AB SERIES HISTORY: Bowel obstruction COMPARISON: None TECHNIQUE: Single AP of the chest, abdomen and pelvis was obtained. Findings: Frontal chest radiograph demonstrates no evidence of pneumothorax, pleural effusions, or consolidatio ns. The trachea, cardiac silhouette, and mediastinum are within normal limits. Frontal view of the abdomen demonstrates multiple gaseous dilated loops of small bowel. No visualized renal calculi. There is no evidence of an acute fracture, dislocation, blastic, or lytic lesions. Numerous midline surgical mona No superficial soft tissue abnormalities. Impression: 1. Multiple gaseous dilated loops of bowel may reflect postoperative ileus versus bowel obstruction. Correlate with signs and symptoms. 2. No visualized renal calculi. 3. No acute cardiopulmonary disease.
[2024-03-11] VITALS (8 sets, daily range): BP systolic 116–146; BP diastolic 73–83; PULSE 70–100; RESP 18–19; TEMP 97.5–98.5; O2SAT 95–97
[2024-03-11 06:49] LABS: Basophils # (auto) 0 10 ^3/uL (0-0.2); Basophils % (auto) 0.2 % (0.0-2.0); Eosinophils # (auto) 0 10 ^3/uL (0-0.8); Eosinophils % (auto) 0.1 % (0.0-7.0); Hematocrit 35.9 % (41.0-53.0); Hemoglobin 12.6 g/dL (13.5-17.5); Lymphocytes # (auto) 0.9 10 ^3/uL (0.4-5.4); Lymphocytes % (auto) 9.4 % (10.0-50.0); Mean Corpuscular Hemoglobin 32.3 pg (28.0-32.0); Mean Corpuscular Volume 92.2 fL (80.0-100.0); Monocytes # (auto) 0.4 10 ^3/uL (0-1.3); Monocytes % (auto) 3.9 % (0.0-12.0); Neutrophils # (auto) 8.3 10 ^3/uL (1.6-8.6); Neutrophils % (auto) 86.4 % (37.0-80.0); Platelet Count (auto) 334 10^3/uL (140-450); Red Blood Cells 3.89 10^6/uL (4.5-5.90); Red Cell Distribution Width 14.4 % (11.8-14.3); White Blood Cell 9.7 10^3/uL (4.4-10.8)
[2024-03-11 06:50] LABS: Anion Gap 6 (5-15); Carbon Dioxide 36 mmol/L (20-31); Chloride 88 mmol/L (98-107); Sodium 130 mmol/L (136-145)
[2024-03-11 06:52] LABS: Calcium 10.1 mg/dL (8.7-10.4)
--- NOTE | 2024-03-11 06:52 | DVH ---
CHEST RADIOGRAPH Indication:NG TUBE CONFIRMATION Technique: Single frontal view of the chest was obtained Comparison: XY CHEST XRAY 1 VIEW on DOS: 03/07/24, XY CHEST PORTABLE on DOS: 03/06/24, XY CHEST XRAY 1 VIEW on DOS: 08/12/23, XY CHEST PORTABLE on DOS: 08/11/23, CHEST PORTABLE on DOS: 03/17/21 FINDINGS: Lines and Tubes: Left-sided pacemaker. Nasogastric tube is coiled in the neck. Lungs: No focal consolidation. Pleura: No effusion. No pneumothorax. Cardiomediastinal contours: Unremarkable Bones: No acute osseous abnormality. IMPRESSION: Nasogastric tube is coiled in the neck.
[2024-03-11 06:56] LABS: BUN/Creatinine Ratio 13.8 (10.0-20.0); Blood Urea Nitrogen 18 mg/dL (9-23); Glucose 157 mg/dL (74-106)
[2024-03-11] MEDS: GASTROGRAFIN 30 ML SOL ONE (07:55)
[2024-03-11] MEDS: IOHEXOL 300 MG/ML 100ML BOTTLE IJ ONE (07:55)
--- NOTE | 2024-03-11 11:07 | DVH ---
Exam: CT CT AB PEL WITH IV CON ONLY History: suspected ileus/SBO Comparison Study: None Technique: Multidetector spiral CT of the abdomen was performed from lung bases to pubic symphysis. Imaging was performed without IV contrast. Axial, coronal and sagittal multiplanar reformats were ob tained from the axial data set by the technologist. Radiation Dose : 1. Abdomen/Pelvis: CTDIvol 12 mGy, DLP 773 mGy*cm. Findings: Evaluation of solid organs is limited due to lack of intravenous contrast use. Lung Bases: Bibasilar atelectasis and scarring. No acute or significant lung base finding. Normal he art size. No pleural or pericardial effusion. Liver: The liver is normal in size. No focal lesions. Gallbladder and Biliary Tree: Unremarkable Spleen: Unremarkable Pancreas: The pancreas is grossly normal in appearance. Adrenal Glands: Unremarkable Kidneys: Kidneys are grossly normal without calculi or hydronephrosis. Bladder: Grossly unremarkable for degree of distention. Bowel: Distended stomach, likely sequelae of small-bowel obstruction. Multiple abnormally dilated loo ps of small bowel are seen throughout the abdomen with probable transition point in the left lower qu adrant, compatible with small bowel obstruction. The appendix is not visualized; however, no secondar y findings of acute appendicitis identified. Extensive colonic diverticulosis without evidence of div erticulitis. Ascites: Absent Lymphadenopathy: No mesenteric, retroperitoneal or periportal lymphadenopathy. Abdominal Wall and Mesentery: Moderate left inguinal hernia containing a loop of noninflamed descendi ng colon. Moderate right inguinal hernia containing fat and a trace amount of phlegmon. Superficial f at stranding and phlegmon is seen in the left abdominal paramidline region measuring 3.5 x 6.6 cm. Vasculature: The visualized abdominal aorta is normal in size and caliber. Evaluation of abdominal a nd pelvic vessels is limited due to lack of intravenous contrast. Pelvic Organs: Unremarkable Musculoskeletal: No aggressive focal bony lesions, acute fractures or dislocation. IMPRESSION: 1. Small-bowel obstruction with probable transition point in the left lower quadrant. No drainable fl uid collection. No free air. 2. Superficial fat stranding and phlegmon is seen in the left abdominal paramidline region measuring up to 6.6 cm, possibly a focal inflammatory process, scarring, or possibly an abscess. Radiation optimization: All CT scans at this facility use at least one of these dose optimization radha hniques: automated exposure control mA and/or kV adjustment per patient size (includes targeted exam s where dose is matched to clinical indication) or iterative reconstruction.
[2024-03-11] MEDS: D5W/SOD CHLO 0.9% 1,000 ML IV SCH (11:31)
--- NOTE | 2024-03-11 16:37 | DVHPN2 ---
Subjective Patient CT abdomen and pelvis shows evidence of small bowel obstruction with a possible transition point, patient denies any nausea vomiting, NG tube has been ordered but are not placed yet as it was difficult to place. Reviewed: Care Plan Changes from previous H/P or p: No Changes Eyes: No Pain, No Vision change, No Conjunctivae inflammation, No Eyelid inflammation, No Other, No Redness ENT: No Ear pain, No Ear discharge, No Nose pain, No Nose discharge, No Nose congestion, No Mouth pain, No Mouth swelling, No Throat pain, No Throat swelling, No Other Cardiovascular: No Chest Pain, No Palpitations, No Orthopnea, No Paroxysmal Noc. Dyspnea, No Edema, No Lt Headedness, No Other Respiratory: No Cough, No Dry, No Shortness of breath, No SOB with excertion, No Wheezing, No Hemoptysis, No Pleuritic Pain, No Sputum, No Other Gastrointestinal: No Nausea, No Vomiting, No Abdominal Pain, No Diarrhea, No Constipation, No Melena, No Hematochezia, No Other Genitourinary: No Dysuria, No Frequency, No Incontinence, No Hematuria, No Retention, No Other Musculoskeletal: No other, No neck pain, No shoulder pain, No arm pain, No back pain, No hand pain; leg pain, foot pain Skin: No Rash, No Lesions, No Jaundice, No Bruising, No Other Objective Vitals Vital Signs Date Time Temp Pulse Resp B/P (MAP) Pulse Ox O2 Delivery O2 Flow Rate FiO2 03/11/24 14:08 92 16 139/75 03/11/24 13:15 98.2 95 98.2 03/11/24 07:45 Room Air* 0 21 Intake/Output Intake and Output 03/11/24 07:00 Intake Total 2000 ml Output Total 750 ml Balance 1250 ml Intake Oral 1700 ml IV Total 300 ml Output Urine Total 750 ml Exam HEENT pupils are reactive Neck is supple CV is S1-S2 regular rate and rhythm Respiratory bilateral clear GI sluggish bowel sounds., mildly distended but nontender no guarding no rigidity 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 Medications Current Medications Medications Dose Ordered Sig/Lea Route Start Time Stop Time Status Last Admin Dose Admin Docusate Sodium 100 mg BIDPRN PRN PO 03/06/24 21:30 03/09/24 21:18 100 MG Acetaminophen 650 mg Q6HP PRN PO 03/06/24 21:30 Ondansetron HCl 4 mg Q4HP PRN IV 03/06/24 21:30 03/11/24 13:30 4 MG Morphine Sulfate 2 mg Q4HPRN PRN IV 03/06/24 21:30 03/11/24 13:38 2 MG Nitroglycerin 0.4 mg Q5MINP PRN SL 03/06/24 21:30 Morphine Sulfate 2 mg Q30M PRN IV 03/06/24 21:30 Hydralazine HCl 10 mg Q4HPRN PRN IV 03/06/24 21:45 Metoprolol Succinate 100 mg DAILY PO 03/07/24 10:00 03/10/24 09:28 100 MG Amiodarone HCl 200 mg BID PO 03/06/24 22:00 03/10/24 09:28 200 MG Cefazolin Sodium 50 ml @ 100 mls/hr Q8HR IV 03/07/24 22:00 03/11/24 13:04 100 MLS/HR Apixaban 5 mg BIDPC PO 03/08/24 19:00 03/10/24 08:41 5 MG Sennosides 17.2 mg HS PO 03/09/24 22:00 03/09/24 21:17 17.2 MG Acetaminophen/ Hydrocodone Bitart 1 tab Q4HP PRN PO 03/10/24 07:30 Polyethylene Glycol 17 gm BID PRN PO 03/10/24 12:15 03/10/24 12:50 17 GM Lactulose 30 ml TIDPRN PRN PO 03/10/24 14:45 03/10/24 16:35 30 ML Metronidazole 100 ml @ 100 mls/hr Q8HR IV 03/10/24 17:00 03/11/24 14:10 100 MLS/HR Dextrose/Sodium Chloride 1,000 ml @ 100 mls/hr Q10H IV 03/11/24 10:45 03/11/24 11:31 100 MLS/HR Laboratory Results Laboratory Tests 03/11/24 06:24 Chemistry Test 03/11/24 06:24 Calcium Level 10.1 mg/dL (8.7-10.4) Urinalysis Test 03/06/24 19:30 Urine Color Yellow (Yellow) Urine Clarity Clear (Clear) Urine pH 6.5 (5.0-9.0) Urine Specific [place] 1.017 (1.001-1.035) Urine Protein 2+ (Negative) H Urine Ketones Negative (Negative) Urine Blood Negative /uL (Negative) Urine Nitrite Negative (Negative) Urine Bilirubin Negative (Negative) Urine Urobilinogen Normal mg/dL (Negative) Urine Leukocyte Esterase Negative /uL (Negative) Urine RBC 1 /hpf (0 - 3) Urine WBC 1 /hpf (0 - 3) Urine Squamous Epithelial Cells Few /hpf (<5) Urine Bacteria None seen /hpf (None Seen) Urine Hyaline Casts Few /lpf (0 - 2) Urine Glucose Normal mg/dL (Normal) Assessment/Plan Assessment/Plan 69-year-old male with a known history of hypertension, dyslipidemia, chronic AFib currently on Eliquis, known coronary artery disease status post PCI with two stents, two years ago presented to the hospital with mechanical fall found to have 1. Acute comminuted spiral fracture of distal tibia with displacement of proximal segment status post mechanical fall status post open reduction and internal fixation 2. Nausea vomiting rule out small-bowel obstruction 3. Coronary artery disease status post PCI 4. Chronic AFib, currently on Eliquis last dose yesterday morning 5. Status post PPM 6. Hypertension 7. Dyslipidemia 8 bowel obstruction -empirical IV antibiotics, NG tube to low wall intermittent suctioning CT abdomen and pelvis, May 20 consultation Aspiration precaution May need NG tube if x-ray abdomen/CT abdomen confirms bowel obstruction versus ileus. Plan discussed with: Patient My Orders Orders - OSWALDO YUNG MD Procedure Category Date Status Time Npo (Nothing By DIET 03/10/24 Transmitted Mouth) Diet Dinner Acute Ab Series XY 03/10/24 Resulted 16:47 Metronidazole PHA 03/10/24 In Process 500mg/100ml (Flagyl 17:00 * Surgical Consult CONS 03/11/24 Transmitted 09:00 D5w/Sod Chlo 0.9% PHA 03/11/24 In Process (D5w Ns 0.9%) 10:45 Date of Service: Mar 11, 2024 Billing Provider: OSWALDO YUNG MD Common Visit Codes: NOT BILLABLE OSWALDO YUNG MD Mar 11, 2024 16:37
--- NOTE | 2024-03-11 23:18 | DVH ---
EXAM: XY CHEST XRAY 1 VIEW CLINICAL HISTORY: NGT placement confirmation TECHNIQUE: Single AP view of the chest WID: COMPARISON: XY CHEST XRAY 1 VIEW on DOS: 03/11/24 FINDINGS: Lines and tubes: There is a left-sided pacemaker with lead tips projecting of the right atrium and ri ght ventricle. There is an NG tube in place with the tip projecting over the body of the stomach. Chest: The heart size and pulmonary vasculature is within normal limits. Calcified plaque projects over the aortic arch. No pleural effusion, pneumothorax, or consolidation. The osseous structures are grossly intact. Multilevel thoracic spondylosis. IMPRESSION: 1. No acute cardiopulmonary abnormality. 2. NG tube in place with tip projecting over the body of the stomach.
[2024-03-12] VITALS (8 sets, daily range): BP systolic 125–151; BP diastolic 68–94; PULSE 72–102; RESP 16–19; TEMP 97.3–98.4; O2SAT 94–97
[2024-03-12] MEDS: ENOXAPARIN SOD 100 MG/1 ML SYRINGE SC SCH (09:50)
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
[2024-03-12] MEDS: FLEET ENEMA(ADULT) 135 ML PR ONE (14:00)
[2024-03-12] MEDS ORDERED: METOPROLOL TARTRATE 1MG/1ML-5ML VIAL IV PRN (18:00)
--- NOTE | 2024-03-12 19:24 | DVHPN2 ---
Subjective Patient had a bowel movement today. Still has NG tube. Reviewed: Care Plan Changes from previous H/P or p: No Changes Eyes: No Pain, No Vision change, No Conjunctivae inflammation, No Eyelid inflammation, No Other, No Redness ENT: No Ear pain, No Ear discharge, No Nose pain, No Nose discharge, No Nose congestion, No Mouth pain, No Mouth swelling, No Throat pain, No Throat swelling, No Other Cardiovascular: No Chest Pain, No Palpitations, No Orthopnea, No Paroxysmal Noc. Dyspnea, No Edema, No Lt Headedness, No Other Respiratory: No Cough, No Dry, No Shortness of breath, No SOB with excertion, No Wheezing, No Hemoptysis, No Pleuritic Pain, No Sputum, No Other Gastrointestinal: No Nausea, No Vomiting, No Abdominal Pain, No Diarrhea, No Constipation, No Melena, No Hematochezia, No Other Genitourinary: No Dysuria, No Frequency, No Incontinence, No Hematuria, No Retention, No Other Musculoskeletal: No other, No neck pain, No shoulder pain, No arm pain, No back pain, No hand pain; leg pain, foot pain Skin: No Rash, No Lesions, No Jaundice, No Bruising, No Other Objective Vitals Vital Signs Date Time Temp Pulse Resp B/P (MAP) Pulse Ox O2 Delivery O2 Flow Rate FiO2 03/12/24 18:22 84 17 115/75 03/12/24 16:44 98.0 97 98.0 03/12/24 08:00 Room Air* 0 21 Intake/Output Intake and Output 03/12/24 07:00 Intake Total 2400 ml Output Total 2500 ml Balance -100 ml Intake Oral 500 ml IV Total 1900 ml Output Urine Total 700 ml Gastric Drainage Total 1550 ml Emesis 250 ml # Voids 1 Exam HEENT pupils are reactive Neck is supple CV is S1-S2 regular rate and rhythm Respiratory bilateral clear GI sluggish bowel sounds., mildly distended but nontender no guarding no rigidity Extremity no edema [employer] no motor deficit, accept right lower extremity can not be tested because of recent surgery on the right distal tibia. Medications Current Medications Medications Dose Ordered Sig/Lea Route Start Time Stop Time Status Last Admin Dose Admin Docusate Sodium 100 mg BIDPRN PRN PO 03/06/24 21:30 03/09/24 21:18 100 MG Acetaminophen 650 mg Q6HP PRN PO 03/06/24 21:30 Ondansetron HCl 4 mg Q4HP PRN IV 03/06/24 21:30 03/11/24 22:27 4 MG Morphine Sulfate 2 mg Q4HPRN PRN IV 03/06/24 21:30 03/12/24 18:05 2 MG Nitroglycerin 0.4 mg Q5MINP PRN SL 03/06/24 21:30 Morphine Sulfate 2 mg Q30M PRN IV 03/06/24 21:30 Hydralazine HCl 10 mg Q4HPRN PRN IV 03/06/24 21:45 Metoprolol Succinate 100 mg DAILY PO 03/07/24 10:00 03/10/24 09:28 100 MG Amiodarone HCl 200 mg BID PO 03/06/24 22:00 03/10/24 09:28 200 MG Cefazolin Sodium 50 ml @ 100 mls/hr Q8HR IV 03/07/24 22:00 03/12/24 14:01 100 MLS/HR Apixaban 5 mg BIDPC PO 03/08/24 19:00 Hold 03/10/24 08:41 5 MG Sennosides 17.2 mg HS PO 03/09/24 22:00 03/09/24 21:17 17.2 MG Acetaminophen/ Hydrocodone Bitart 1 tab Q4HP PRN PO 03/10/24 07:30 Polyethylene Glycol 17 gm BID PRN PO 03/10/24 12:15 03/10/24 12:50 17 GM Lactulose 30 ml TIDPRN PRN PO 03/10/24 14:45 03/10/24 16:35 30 ML Metronidazole 100 ml @ 100 mls/hr Q8HR IV 03/10/24 17:00 03/12/24 14:35 100 MLS/HR Dextrose/Sodium Chloride 1,000 ml @ 100 mls/hr Q10H IV 03/11/24 10:45 03/12/24 11:45 100 MLS/HR Enoxaparin Sodium 100 mg Q12HR SC 03/12/24 10:00 03/12/24 09:50 100 MG Metoprolol Tartrate 2.5 mg Q4HPRN PRN IV 03/12/24 18:00 Laboratory Results Laboratory Tests 03/11/24 06:24 Urinalysis Test 03/06/24 19:30 Urine Color Yellow (Yellow) Urine Clarity Clear (Clear) Urine pH 6.5 (5.0-9.0) Urine Specific [place] 1.017 (1.001-1.035) Urine Protein 2+ (Negative) H Urine Ketones Negative (Negative) Urine Blood Negative /uL (Negative) Urine Nitrite Negative (Negative) Urine Bilirubin Negative (Negative) Urine Urobilinogen Normal mg/dL (Negative) Urine Leukocyte Esterase Negative /uL (Negative) Urine RBC 1 /hpf (0 - 3) Urine WBC 1 /hpf (0 - 3) Urine Squamous Epithelial Cells Few /hpf (<5) Urine Bacteria None seen /hpf (None Seen) Urine Hyaline Casts Few /lpf (0 - 2) Urine Glucose Normal mg/dL (Normal) Assessment/Plan Assessment/Plan 69-year-old male with a known history of hypertension, dyslipidemia, chronic AFib currently on Eliquis, known coronary artery disease status post PCI with two stents, two years ago presented to the hospital with mechanical fall found to have 1. Acute comminuted spiral fracture of distal tibia with displacement of proximal segment status post mechanical fall status post open reduction and internal fixation 2. Nausea vomiting ruled in small-bowel obstruction 3. Coronary artery disease status post PCI 4. Chronic AFib, currently on Eliquis last dose yesterday morning 5. Status post PPM 6. Hypertension 7. Dyslipidemia -continue NG tube, -empirical IV antibiotics, Aspiration precaution Plan discussed with: Patient My Orders Orders - OSWALDO YUNG MD Procedure Category Date Status Time Chest Xray 1 View XY 03/11/24 Resulted 21:59 Enoxaparin Sodium PHA 03/12/24 In Process (Lovenox) 10:00 Communication Order ORDERS 03/12/24 Transmitted 08:34 Metoprolol Inj PHA 03/12/24 In Process (Lopressor) 18:00 Date of Service: Mar 12, 2024 Billing Provider: OSWALDO YUNG MD Common Visit Codes: NOT BILLABLE OSWALDO YUNG MD Mar 12, 2024 19:24
[2024-03-13] VITALS (8 sets, daily range): BP systolic 118–148; BP diastolic 70–83; PULSE 70–102; RESP 16–19; TEMP 97.9–98.3; O2SAT 96–100
[2024-03-13] MEDS: HYDROcodone-ACET 10/325MG TAB PO PRN (09:05)
--- NOTE | 2024-03-13 13:56 | DVHDS2 ---
Discharge Summary Date of Admission Mar 06, 2024 at 21:24 Date of Discharge: Mar 13, 2024 Labs/Diagnostic Data: Laboratory Results Test 03/11/24 06:24 03/07/24 05:07 03/06/24 19:35 03/06/24 19:30 White Blood Count 9.7 10^3/uL (4.4-10.8) Red Blood Count 3.89 10^6/uL (4.5-5.90) Hemoglobin 12.6 g/dL (13.5-17.5) Hematocrit 35.9 % (41.0-53.0) Mean Corpuscular Volume 92.2 fL (80.0-100.0) Mean Corpuscular Hemoglobin 32.3 pg (28.0-32.0) Mean Corpuscular Hemoglobin Concent 35.0 g/dL (32.0-36.0) Red Cell Distribution Width 14.4 % (11.8-14.3) Platelet Count 334 10^3/uL (140-450) Mean Platelet Volume 6.7 fL (6.9-10.8) Neutrophils (%) (Auto) 86.4 % (37.0-80.0) Lymphocytes (%) (Auto) 9.4 % (10.0-50.0) Monocytes (%) (Auto) 3.9 % (0.0-12.0) Eosinophils (%) (Auto) 0.1 % (0.0-7.0) Basophils (%) (Auto) 0.2 % (0.0-2.0) Neutrophils # (Auto) 8.3 10 ^3/uL (1.6-8.6) Lymphocytes # (Auto) 0.9 10 ^3/uL (0.4-5.4) Monocytes # (Auto) 0.4 10 ^3/uL (0-1.3) Eosinophils # (Auto) 0 10 ^3/uL (0-0.8) Basophils # (Auto) 0 10 ^3/uL (0-0.2) Nucleated Red Blood Cells 0.0 % Sodium Level 130 mmol/L (136-145) Potassium Level 4.0 mmol/L (3.5-5.1) Chloride Level 88 mmol/L (98-107) Carbon Dioxide Level 36 mmol/L (20-31) Anion Gap 6 (5-15) Blood Urea Nitrogen 18 mg/dL (9-23) Creatinine 1.30 mg/dL (0.700-1.30) Glomerular Filtration Rate Calc 59 mL/min (>90) BUN/Creatinine Ratio 13.8 (10.0-20.0) Serum Glucose 157 mg/dL (74-106) Calcium Level 10.1 mg/dL (8.7-10.4) Prothrombin Time 10.5 sec (9.3-11.8) Prothrombin Time INR 0.99 (0.9-1.15) Activated Partial Thromboplast Time 28.2 SEC (24.5-34.5) Plasma/Serum Blood Alcohol < 3.0 mg/dL (<10) Lactic Acid Level 1.7 mmol/L (0.4-2.0) Troponin I High Sensitivity 8 ng/L (</=54) Urine Color Yellow (Yellow) Urine Clarity Clear (Clear) Urine pH 6.5 (5.0-9.0) Urine Specific [place] 1.017 (1.001-1.035) Urine Protein 2+ (Negative) Urine Ketones Negative (Negative) Urine Blood Negative /uL (Negative) Urine Nitrite Negative (Negative) Urine Bilirubin Negative (Negative) Urine Urobilinogen Normal mg/dL (Negative) Urine Leukocyte Esterase Negative /uL (Negative) Urine RBC 1 /hpf (0 - 3) Urine WBC 1 /hpf (0 - 3) Urine Squamous Epithelial Cells Few /hpf (<5) Urine Bacteria None seen /hpf (None Seen) Urine Hyaline Casts Few /lpf (0 - 2) Urine Glucose Normal mg/dL (Normal) Test 03/06/24 17:19 Differential Total Cells Counted 100.0 (100) Neutrophils % (Manual) 70 (37.0-80.0) Band Neutrophils % (Manual) 4 Lymphocytes % (Manual) 22 (10.0-50.0) Monocytes % (Manual) 4 (0-12) Eosinophils % (Manual) 0 (0-7) Basophils % (Manual) 0 (0.0-2.0) Metamyelocytes % (manual) 0 Myelocytes % (Manual) 0 Promyelocytes % (Manual) 0 Blast Cells % (Manual) 0 Reactive Lymphocytes 0 Platelet Estimate Adequate Magnesium Level 2.0 mg/dL (1.6-2.6) Total Bilirubin 0.6 mg/dL (0.2-1.0) Aspartate Amino Transferase (AST) 24 U/L (13-40) Alanine Aminotransferase (ALT) 35 U/L (7-40) Alkaline Phosphatase 80 U/L (46-116) Total Protein 5.7 g/dL (5.7-8.2) Albumin 3.6 g/dL (3.2-4.8) Other Laboratory Tests 03/11/24 06:24 Brief Hx & Hospital Course: 69-year-old male with a known history of hypertension, dyslipidemia, chronic AFib currently on Eliquis, known coronary artery disease status post PCI with two stents, two years ago presented to the hospital with mechanical fall found to have acute comminuted spiral fracture of distal to be a with a displacement of proximal segment. Patient underwent open reduction and internal fixation. Patient hospital course was eventful course small-bowel obstruction which he was currently resolved. To be noted the patient was recently had a abdominal hernia surgery. Patient currently tolerating diet and stable to be discharged to half-way facility for rehab. Also alcohol abstinence has been recommended as patient was alcohol intoxicated fall before he came in. Condition at Discharge: Stable Final Diagnosis/Problems List 1. Acute comminuted spiral fracture of distal tibia with displacement of proximal segment status post mechanical fall status post open reduction and internal fixation 2. Small-bowel obstruction, currently resolved 3. Coronary artery disease status post PCI 4. Chronic AFib, currently on Eliquis last dose yesterday morning 5. Status post PPM 6. Hypertension 7. Dyslipidemia 8. Chronic alcoholism, drug rehab as an outpatient. Discharge Disposition: [facility] SN[facility] Discharge Will this Physician continue t: No Discharge Instruct/Medications Diet: Cardiac 2g Na,low cholest Activity: See Comment Activity comment: As tolerated with physical therapy assistance Follow Up/Referral: Follow up with the PCP in 1-2 weeks Follow up with [facility] in 1-2 weeks Follow up with Dr. Savage Kemp in one two to be Medications: As reconciled Discharge Statement: "Patient was advised to return to the ER or call 911 if any headaches, dizziness, shortness of breath, chest pain, abdominal pain, bleeding, fevers, or worsening of medical condition. Patient was counseled about treatment plan, medications, possible side effects, patientverbalized understanding. All questions were answered to the best of my ability. This discharge took greater then 30 minutes in planning, reviewing documentation, counseling the patient, and discussing with other team members." ASSESSMENT ASSESSMENT Assessment 1. Acute comminuted spiral fracture of distal tibia with displacement of proximal segment status post mechanical fall status post open reduction and internal fixation2. Acute alcoholic intoxication, drug rehab as an outpatient3. Coronary artery disease status post PCI4. Chronic AFib, currently on Eliquis last dose yesterday morning 5. Status post PPM6. Hypertension7. Dyslipidemia Date of Service: Mar 13, 2024 Billing Provider: OSWALDO YUNG MD Common Visit Codes: NOT BILLABLE OSWALDO YUNG MD Mar 13, 2024 13:56
[2024-03-14] VITALS (8 sets, daily range): BP systolic 95–152; BP diastolic 62–76; PULSE 60–100; RESP 17–20; TEMP 97.3–98.6; O2SAT 95–98
--- NOTE | 2024-03-14 14:47 | DVHPN2 ---
Subjective Patient had bowel movement but still complaining of nausea and bloating sensation, currently tolerating liquid diet but wants to stay another day. Reviewed: Care Plan Changes from previous H/P or p: No Changes Eyes: No Pain, No Vision change, No Conjunctivae inflammation, No Eyelid inflammation, No Other, No Redness ENT: No Ear pain, No Ear discharge, No Nose pain, No Nose discharge, No Nose congestion, No Mouth pain, No Mouth swelling, No Throat pain, No Throat swelling, No Other Cardiovascular: No Chest Pain, No Palpitations, No Orthopnea, No Paroxysmal Noc. Dyspnea, No Edema, No Lt Headedness, No Other Respiratory: No Cough, No Dry, No Shortness of breath, No SOB with excertion, No Wheezing, No Hemoptysis, No Pleuritic Pain, No Sputum, No Other Gastrointestinal: No Nausea, No Vomiting, No Abdominal Pain, No Diarrhea, No Constipation, No Melena, No Hematochezia, No Other Genitourinary: No Dysuria, No Frequency, No Incontinence, No Hematuria, No Retention, No Other Musculoskeletal: No other, No neck pain, No shoulder pain, No arm pain, No back pain, No hand pain; leg pain, foot pain Skin: No Rash, No Lesions, No Jaundice, No Bruising, No Other Objective Vitals Vital Signs Date Time Temp Pulse Resp B/P (MAP) Pulse Ox O2 Delivery O2 Flow Rate FiO2 03/14/24 13:00 98.3 89 18 103/62 (76) 96 98.3 03/14/24 08:00 Room Air* 0 21 Intake/Output Intake and Output 03/14/24 07:00 Intake Total 1750 ml Output Total 200 ml Balance 1550 ml Intake Oral 1500 ml IV Total 250 ml Output Urine Total 200 ml # Bowel Movements 2 Exam HEENT pupils are reactive Neck is supple CV is S1-S2 regular rate and rhythm Respiratory bilateral clear GI sluggish bowel sounds., mildly distended but nontender no guarding no rigidity Extremity no edema [employer] no motor deficit, accept right lower extremity can not be tested because of recent surgery on the right distal tibia. Medications Current Medications Medications Dose Ordered Sig/Lea Route Start Time Stop Time Status Last Admin Dose Admin Docusate Sodium 100 mg BIDPRN PRN PO 03/06/24 21:30 03/09/24 21:18 100 MG Acetaminophen 650 mg Q6HP PRN PO 03/06/24 21:30 Ondansetron HCl 4 mg Q4HP PRN IV 03/06/24 21:30 03/14/24 09:45 4 MG Morphine Sulfate 2 mg Q4HPRN PRN IV 03/06/24 21:30 03/14/24 09:50 2 MG Nitroglycerin 0.4 mg Q5MINP PRN SL 03/06/24 21:30 Morphine Sulfate 2 mg Q30M PRN IV 03/06/24 21:30 Hydralazine HCl 10 mg Q4HPRN PRN IV 03/06/24 21:45 Metoprolol Succinate 100 mg DAILY PO 03/07/24 10:00 03/14/24 12:58 100 MG Amiodarone HCl 200 mg BID PO 03/06/24 22:00 03/14/24 09:55 200 MG Cefazolin Sodium 50 ml @ 100 mls/hr Q8HR IV 03/07/24 22:00 03/14/24 05:33 100 MLS/HR Apixaban 5 mg BIDPC PO 03/08/24 19:00 03/14/24 09:55 5 MG Sennosides 17.2 mg HS PO 03/09/24 22:00 03/13/24 22:00 17.2 MG Acetaminophen/ Hydrocodone Bitart 1 tab Q4HP PRN PO 03/10/24 07:30 03/13/24 15:33 1 TAB Polyethylene Glycol 17 gm BID PRN PO 03/10/24 12:15 03/10/24 12:50 17 GM Lactulose 30 ml TIDPRN PRN PO 03/10/24 14:45 03/10/24 16:35 30 ML Metronidazole 100 ml @ 100 mls/hr Q8HR IV 03/10/24 17:00 03/14/24 05:33 100 MLS/HR Dextrose/Sodium Chloride 1,000 ml @ 100 mls/hr Q10H IV 03/11/24 10:45 03/14/24 04:05 100 MLS/HR Metoprolol Tartrate 2.5 mg Q4HPRN PRN IV 03/12/24 18:00 Laboratory Results Laboratory Tests 03/11/24 06:24 Urinalysis Test 03/06/24 19:30 Urine Color Yellow (Yellow) Urine Clarity Clear (Clear) Urine pH 6.5 (5.0-9.0) Urine Specific [place] 1.017 (1.001-1.035) Urine Protein 2+ (Negative) H Urine Ketones Negative (Negative) Urine Blood Negative /uL (Negative) Urine Nitrite Negative (Negative) Urine Bilirubin Negative (Negative) Urine Urobilinogen Normal mg/dL (Negative) Urine Leukocyte Esterase Negative /uL (Negative) Urine RBC 1 /hpf (0 - 3) Urine WBC 1 /hpf (0 - 3) Urine Squamous Epithelial Cells Few /hpf (<5) Urine Bacteria None seen /hpf (None Seen) Urine Hyaline Casts Few /lpf (0 - 2) Urine Glucose Normal mg/dL (Normal) Assessment/Plan Assessment/Plan 69-year-old male with a known history of hypertension, dyslipidemia, chronic AFib currently on Eliquis, known coronary artery disease status post PCI with two stents, two years ago presented to the hospital with mechanical fall found to have 1. Acute comminuted spiral fracture of distal tibia with displacement of proximal segment status post mechanical fall status post open reduction and internal fixation 2. Nausea vomiting ruled in small-bowel obstruction, currently resolved 3. Coronary artery disease status post PCI 4. Chronic AFib, currently on Eliquis last dose yesterday morning 5. Status post PPM 6. Hypertension 7. Dyslipidemia -continue diet as tolerated, small-bowel series as per General surgery as patient is still having bloating sensation -empirical IV antibiotics, -Aspiration precaution -physical therapy evaluation treatment -discharge plan to [facility]. Plan discussed with: Patient, Other My Orders Orders - OSWALDO YUNG MD Procedure Category Date Status Time Full Liq Diet DIET 03/14/24 Transmitted Dinner Date of Service: Mar 14, 2024 Billing Provider: OSWALDO YUNG MD Common Visit Codes: NOT BILLABLE OSWALDO YUNG MD Mar 14, 2024 14:47
[2024-03-14] MEDS ORDERED: GASTROGRAFIN 30 ML SOL ONE (14:58)
--- NOTE | 2024-03-14 19:18 | DVH ---
Procedure: XY SMALL BOWEL SERIES-W GASTROGRA Reason for study/Clinical History: BLOATING NAUSEA Comparison Study: None available at time of dictation. Technique: Single contrast small bowel series performed. FINDINGS/IMPRESSION: Initial delivery associate view of the abdomen and pelvis appears demonstrates no acute process. Contrast is identified within the colon by 2 hours. At 2:00 a.m. Contrast is also seen in the rectos igmoid colon. There is mildly dilated small bowel is contrast filled. Findings most consistent at thi s time with postop ileus.
[2024-03-15] VITALS (9 sets, daily range): BP systolic 129–147; BP diastolic 67–88; PULSE 68–102; RESP 16–19; TEMP 97.6–98.7; O2SAT 96–98
--- NOTE | 2024-03-15 11:33 | DVHPN2 ---
Progress Note Date Seen: Mar 15, 2024 Medical Necessity Reason Pt with a Central, PICC or Fol: No Subjective Patient reports: Feels better Review of Systems: HEENT:Normal, CVS:Normal, RESPIRATORY:Normal, GI:Normal, :Normal, MSK:Normal, NEURO:Normal Other Systems: pt seen and examined, passing flatus had several bm. sbft neg. has some nausea Objective vital signs Vital Sign Date Time Temp Pulse Resp B/P (MAP) Pulse Ox O2 Delivery O2 Flow Rate FiO2 03/15/24 11:13 84 20 143/83 03/15/24 09:17 98.7 96 98.7 03/15/24 07:30 Room Air* 0 21 Total Intake and Output 03/14/24 03/14/24 03/15/24 15:00 23:00 07:00 Intake Total 1280 ml 970 ml 100 ml Output Total 600 ml Balance 1280 ml 370 ml 100 ml medications Current Medications Medications Dose Ordered Sig/Lea Route Start Time Stop Time Status Last Admin Dose Admin Docusate Sodium 100 mg BIDPRN PRN PO 03/06/24 21:30 03/09/24 21:18 100 MG Acetaminophen 650 mg Q6HP PRN PO 03/06/24 21:30 Ondansetron HCl 4 mg Q4HP PRN IV 03/06/24 21:30 03/14/24 09:45 4 MG Morphine Sulfate 2 mg Q4HPRN PRN IV 03/06/24 21:30 03/15/24 11:13 2 MG Nitroglycerin 0.4 mg Q5MINP PRN SL 03/06/24 21:30 Morphine Sulfate 2 mg Q30M PRN IV 03/06/24 21:30 Hydralazine HCl 10 mg Q4HPRN PRN IV 03/06/24 21:45 Metoprolol Succinate 100 mg DAILY PO 03/07/24 10:00 03/15/24 09:28 100 MG Amiodarone HCl 200 mg BID PO 03/06/24 22:00 03/15/24 09:26 200 MG Cefazolin Sodium 50 ml @ 100 mls/hr Q8HR IV 03/07/24 22:00 03/15/24 06:23 100 MLS/HR Apixaban 5 mg BIDPC PO 03/08/24 19:00 03/15/24 09:25 5 MG Sennosides 17.2 mg HS PO 03/09/24 22:00 03/13/24 22:00 17.2 MG Acetaminophen/ Hydrocodone Bitart 1 tab Q4HP PRN PO 03/10/24 07:30 03/13/24 15:33 1 TAB Polyethylene Glycol 17 gm BID PRN PO 03/10/24 12:15 03/10/24 12:50 17 GM Lactulose 30 ml TIDPRN PRN PO 03/10/24 14:45 03/10/24 16:35 30 ML Metronidazole 100 ml @ 100 mls/hr Q8HR IV 03/10/24 17:00 03/15/24 06:23 100 MLS/HR Dextrose/Sodium Chloride 1,000 ml @ 100 mls/hr Q10H IV 03/11/24 10:45 03/14/24 22:54 100 MLS/HR Metoprolol Tartrate 2.5 mg Q4HPRN PRN IV 03/12/24 18:00 Examination gen; aaox3,nad abd; obese, mildly distended, soft, incison c d i, eccymoses throughout anterior abdominal wall ext; no edema, dressing in place laboratory and microbiology Laboratory Tests 03/11/24 06:24 Test 03/11/24 06:24 Range/Units Serum Glucose 157 H 74-106 mg/dL Problem List/Assessment/Plan Problem List/Assessment/Plan 69 yo male with post op ileus, multiple bm, sbft neg, full liquid diet, ok to dc from surg standpoint STOP ALL ALCOHOL USE! Plan discussed with: Patient My Orders My Orders Orders - AMERICA BEASLEY MD Procedure Category Date Status Time Small Bowel Series-W XY 03/14/24 Resulted Gastrogra 14:19 AMERICA BEASLEY MD Mar 15, 2024 11:33
--- NOTE | 2024-03-22 13:57 | ECG ---
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
--- NOTE | 2024-03-22 14:18 | ECG ---
[facility] Test Date: 2024-03-07 Test Time: 09:07:37 Pat Name: MISHA VILLA Department: Room: 0278T A Gender: M Psychiatric Np: catracho : 1955 Requested By: KEVIN DRAKE Order Number: [id number] Reading MD: Debra Ahn Measurements Intervals [place] Rate: 105 P: 0 AL: 0 QRS: 12 QRSD: 97 T: -4 QT: 332 QTc: 439 Interpretive Statements Afib/flut and V-paced complexes No further rhythm analysis attempted due to paced rhythm Nonspecific repol abnormality, diffuse leads Electronically Signed On 03-23-2024 0:50:06 PST by Debra Ahn Please click the below link to view image of tracing.
--- NOTE | 2024-04-03 12:05 | DVHPN2 ---
Progress Note Date Seen: Mar 13, 2024 Medical Necessity Reason Pt with a Central, PICC or Fol: No Subjective Patient reports: No new complaints Changes from previous H/P or p: No Changes Review of Systems: CVS:Normal, RESPIRATORY:Normal, GI:Normal, :Normal, MSK:Normal, NEURO:Normal Objective Examination gen; aaox3,nad abd; soft distended, ecchymoses, no r r g lung; normal effort Examination: GENERAL:Normal, HEENT:Normal, NECK:Normal, LUNGS:Normal, CVS:Normal, ABDOMEN:Normal, MSK:Normal, SKIN:Normal, NEURO:Normal, :Normal laboratory and microbiology Laboratory Tests 03/11/24 06:24 Test 03/11/24 06:24 Range/Units Serum Glucose 157 H 74-106 mg/dL Problem List/Assessment/Plan Problem List/Assessment/Plan 69 yo male with post op ileus, monitor for bm, limit narcotics, ambulate 3 x a day Plan discussed with: Patient AMERICA BEASLEY MD Apr 03, 2024 12:05
--- NOTE | 2024-04-03 12:07 | DVHPN2 ---
Progress Note Date Seen: Mar 14, 2024 Medical Necessity Reason Pt with a Central, PICC or Fol: No Subjective Patient reports: No new complaints Changes from previous H/P or p: No Changes Other Systems: denies bm, minimal flatus Objective Examination gen; aaox3,nad abd; soft mildly distended, mildly ttp, eccymoses lung; normal effort laboratory and microbiology Laboratory Tests 03/11/24 06:24 Test 03/11/24 06:24 Range/Units Serum Glucose 157 H 74-106 mg/dL Problem List/Assessment/Plan Problem List/Assessment/Plan 69 yo male with post op ileus, monitor for bm, limit narcotics, ambulate 3 x a day SBFT Plan discussed with: Patient AMERICA BEASLEY MD Apr 03, 2024 12:07
== END 2024-03-15 22:10 | DRG 493 ==
LOC: EDBD 15:49 → EDUNIT# 15:49 → ER 15:49 → TELE 21:24 → TELE-WESTW 21:41
PROVIDERS: ADMIT Nurse Practitioner Family; ATTEND Hospitalist
PROC: 0QSG04Z Reposition Right Tibia with Internal Fixation Device, Open Approach (ICD-10-PCS; principal; 2024-03-07 16:52)
PROC: 0D9670Z Drainage of Stomach with Drainage Device, Via Natural or Artificial Opening (ICD-10-PCS; 2024-03-11)
DX: S82.251A Displaced comminuted fracture of shaft of right tibia, initial encounter for closed fracture (principal); I48.20 Chronic atrial fibrillation, unspecified; K56.699 Other intestinal obstruction unspecified as to partial versus complete obstruction; E78.5 Hyperlipidemia, unspecified; I10 Essential (primary) hypertension; E66.9 Obesity, unspecified; I25.10 Atherosclerotic heart disease of native coronary artery without angina pectoris; F10.229 Alcohol dependence with intoxication, unspecified; W01.0XXA Fall on same level from slipping, tripping and stumbling without subsequent striking against object, initial encounter; Y90.9 Presence of alcohol in blood, level not specified; G30.9 Alzheimer's disease, unspecified; Z98.61 Coronary angioplasty status; Z88.0 Allergy status to penicillin; Z95.0 Presence of cardiac pacemaker; Y93.89 Activity, other specified; Y92.89 Other specified places as the place of occurrence of the external cause; Y99.8 Other external cause status; Z83.3 Family history of diabetes mellitus; Z79.01 Long term (current) use of anticoagulants; Z68.32 Body mass index [BMI] 32.0-32.9, adult; Z79.899 Other long term (current) drug therapy; Y90.8 Blood alcohol level of 240 mg/100 ml or more
CPT/HCPCS: 36415; 70450; 71045; 73590; 73610; 74022; 74177; 74250; 76000; 80048; 80053; 80320; 81001; 83605; 83735; 84484; 85007; 85025; 85027; 85610; 85730; 93005; 93306; 96360; 97110; 97116; 97163; 97530; C1769; G0378; J1100; J1885; J2405; J3490; J7042

== ENCOUNTER 2025-03-30 09:23 | Inpatient (IN) | payer OTHER, MEDICAID ==
[~2025-03-30] VITALS: Ht 175.3 cm; Wt 99.9 kg
[~2025-03-30 09:23] MED LIST changes: +AMIO200T33 PO; +FURO40TA4 PO
[2025-03-30 10:36] LABS: Hematocrit 27.6 % (41.0-53.0); Hemoglobin 9.4 g/dL (13.5-17.5); Mean Corpuscular Hemoglobin 30.6 pg (28.0-32.0); Mean Corpuscular Volume 89.7 fL (80.0-100.0); Nucleated Red Blood Cells % 0.0 %
[2025-03-30 10:46] LABS: Chloride 99 mmol/L (98-107)
[2025-03-30 10:47] LABS: Anion Gap 7 (5-15); Calcium 9.2 mg/dL (8.7-10.4); Carbon Dioxide 26 mmol/L (20-31)
[2025-03-30 10:48] LABS: Potassium 3.5 mmol/L (3.5-5.1); Sodium 132 mmol/L (136-145)
[2025-03-30 10:52] LABS: BUN/Creatinine Ratio 40.5 (10.0-20.0)
[2025-03-30 11:02] LABS: Blood Urea Nitrogen 45 mg/dL (9-23); Glucose 182 mg/dL (74-106)
[2025-03-30] MEDS: SODIUM CHLORIDE 0.9% 1,000 ML IV ONE (11:30)
[2025-03-30 11:41] LABS: Urine Protein, UAD 1+ (Negative)
--- NOTE | 2025-03-30 11:50 | ED.PDOC ---
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 Per caregiver, patient has a pacemaker and coronary stent in place. Patient has no further complaints at this time and otherwise denies symptoms of fever, chills, dysuria, hematuria, or hematemesis. Chief Complaint: General Weakness Time Seen by MD: 11:18 Reviewed Notes: Medications, Allergies Allergies: Coded Allergies: Penicillins (Verified Allergy, Intermediate, ARMPIT RASH, 08/09/23) Home Meds Reported Medications Furosemide (Furosemide) 40 Mg Tab, 1 TAB PO DAILY, #30 TAB 5 Refills 03/07/24 Amiodarone Hcl (Amiodarone Hcl) 200 Mg Tab, 200 MG PO BID, TAB 03/07/24 Metoprolol Succinate (Metoprolol Succinate Er) 50 Mg Tab, 50 MG PO BID, TAB 08/12/23 Hctz (Hydrochlorothiazide) 25 Mg Tab, 25 MG PO DAILY for HTN, TAB 08/09/23 Potassium Chloride (Potassium Chloride ER) 10 Meq Tab, 10 MEQ PO DAILY, TAB 08/09/23 Apixaban Base (ELIQUIS) 5 Mg Tab, 5 MG PO BID for stop on 08/10/23, TAB 08/09/23 Losartan Potassium (Losartan Potassium) 100 Mg Tab, 100 MG PO DAILY for HTN for 30 Days, MG 08/09/23 Atorvastatin Calcium (ATORVASTATIN CALCIUM) 20 Mg Tab, 1 TAB PO QPM 08/06/21 Metoprolol Tartrate (Metoprolol Tartrate) 25 Mg Tab, 50 MG PO QAM for HYPERTENSION, MG 08/06/21 Amlodipine Besylate (Amlodipine Besylate) 10 Mg Tab, 1 TAB PO QAM for HYPERTENSION 08/06/21 Docusate Sodium (Dok) 100 Mg Cap, 100 MG PO DAILY PRN for FOR CONSTIPATION 08/06/21 Mode of Arrival: Ambulatory Severity: Moderate Timing: Days Duration: Since onset Past Medical History PAST MEDICAL HISTORY: Alzheimer, Cancer, HTN Surgical History: Hernia Repair, Pacemaker Family History Family History: Reviewed,noncontributory to illness Social History Smoker: Non-Smoker Alcohol: Denies ETOH Use Drugs: Denies Drug Use Lives In: Home Constitutional: reports: chills, weakness; denies: diaphoresis, fatigue, fever, malaise, sweats, others EENTM: denies: blurred vision, double vision, ear bleeding, ear discharge, ear drainage, ear pain, ear ringing, eye pain, eye redness, hearing loss, mouth pain, mouth swelling, nasal discharge, nose bleeding, nose congestion, nose pain, photophobia, tearing, throat pain, throat swelling, voice changes, others Respiratory: denies: cough, hemoptysis, orthopnea, SOB at rest, shortness of breath, SOB with excertion, stridor, wheezing, others Cardiovascular: denies: chest pain, dizzy spells, diaphoresis, Dyspnea on exertion, edema, irregular heart beat, left arm pain, lightheadedness, palp itations, PND, syncope, others Gastrointestinal: reports: nausea, vomiting, others (black stool); denies: abdomen distended, abdominal pain, blood streaked bowels, constipated, diarrhea, dysphagia, difficulty swallowing, hematemesis, melena, poor appetite, poor fluid intake, rectal bleeding, rectal pain Genitourinary: denies: burning, dysuria, flank pain, frequency, hematuria, incontinence, penile discharge, penile sore, pain, testicle pain, testicle swelling, urgency, others Neurological: reports: dizziness; denies: fainting, headache, left sided numbness, left sided weakness, numbness, paresthesia, pre-existing deficit, right sided numbness, right sided weakness, seizure, speech problems, tingling, tremors, weakness, others Musculoskeletal: denies: back pain, gout, joint pain, joint swelling, muscle pain, muscle stiffness, neck pain, others Integumetry: denies: bruises, change in color, change in hair/nails, dryness, laceration, lesions, lumps, rash, wounds, others Allergic/Immunocompromised: denies: Difficulty Healing, Frequent Infections, Hives, Itching, others Hematologic/Lymphatic: denies: anemia, blood clots, easy bleeding, easy bruising, swollen glands, others Endocrine: denies: excessive hunger, excessive sweating, excessive thirst, excessive urination, flushing, intolerance to cold, intolerance to heat, unexplained weight gain, unexplained weight loss, others Psychiatric: denies: anxiety, bipolar disorder, depression, hopeless, panic disorder, schizophrenia, sleepless, suicidal, others All Other Systems: Reviewed and Negative Physical Exam General Appearance: Moderate Distress HEENT: Normal ENT Inspection, Pharynx Normal, TMs Normal Neck: Full Range of Motion, Non-Tender, Normal, Normal Inspection Respiratory: Chest Non-Tender, Lungs Clear, No Accessory Muscle Use, No Respiratory Distress, Normal Breath Sounds Cardiovascular: No Edema, No JVD, No Murmur, No Gallop, Normal Peripheral Pulses, Regular Rate/Rhythm Breast Exam: Deferred Gastrointestinal: No Organomegaly, Non Tender, No Pulsatile Mass, Normal Bowel Sounds, Soft Genitalia: Deferred Pelvic: Deferred Rectal: Deferred Extremities: No calf tenderness, Normal capillary refill, Normal inspection, Normal range of motion, Non-tender, No pedal edema Musculoskeletal : Apperance: Normal Neurologic: Alert, transportation equipment painter II-XII nml as Tested, No Motor Deficits, Normal Affect, Normal Mood, No Sensory Deficits Cerebellar Function: NOT DONE Reflexes: NOT DONE Skin: Dry, Normal Color, Warm Peripheral Pulses: 3+ Radial (R), 3+ Radial (L) Lymphatic: No Adenopathy Was a procedure done? Was a procedure done?: No Differential Dx Considerations may include: Anemia Electrolyte imbalance X-Ray, Labs, Meds, VS Vital Signs Date Time Temp Pulse Resp B/P (MAP) Pulse Ox O2 Delivery O2 Flow Rate FiO2 03/30/25 11:29 76 14 97 Room Air 03/30/25 11:29 98.1 76 14 115/53 (73) 97 98.1 03/30/25 09:25 97.6 88 16 106/56 99 97.6 Lab Test 03/30/25 11:28 03/30/25 10:26 Range/Units Urine Color Light-yellow Yellow Urine Clarity Clear Clear Urine pH 7.0 5.0-9.0 Urine Specific [place] 1.013 1.001-1.035 Urine Protein 1+ H Negative Urine Ketones Negative Negative Urine Blood Negative Negative /uL Urine Nitrite Negative Negative Urine Bilirubin Negative Negative Urine Urobilinogen Normal Negative mg/dL Urine Leukocyte Esterase Negative Negative /uL Urine RBC <1 0 - 3 /hpf Urine Microscopic WBC < 1 0-3 /HPF Urine Squamous Epithelial Cells None seen <5 /hpf Urine Bacteria None seen None Seen /hpf Urine Glucose Normal Normal mg/dL White Blood Count 6.0 4.4-10.8 10^3/uL Red Blood Count 3.08 L 4.5-5.90 10^6/uL Hemoglobin 9.4 L 13.5-17.5 g/dL Hematocrit 27.6 L 41.0-53.0 % Mean Corpuscular Volume 89.7 80.0-100.0 fL Mean Corpuscular Hemoglobin 30.6 28.0-32.0 pg Mean Corpuscular Hemoglobin Concent 34.1 32.0-36.0 g/dL Red Cell Distribution Width 14.0 11.8-14.3 % Platelet Count 262 140-450 10^3/uL Mean Platelet Volume 6.6 L 6.9-10.8 fL Neutrophils (%) (Auto) 74.7 37.0-80.0 % Lymphocytes (%) (Auto) 19.6 10.0-50.0 % Monocytes (%) (Auto) 4.8 0.0-12.0 % Eosinophils (%) (Auto) 0.2 0.0-7.0 % Basophils (%) (Auto) 0.7 0.0-2.0 % Neutrophils # (Auto) 4.5 1.6-8.6 10 ^3/uL Lymphocytes # (Auto) 1.2 0.4-5.4 10 ^3/uL Monocytes # (Auto) 0.3 0-1.3 10 ^3/uL Eosinophils # (Auto) 0 0-0.8 10 ^3/uL Basophils # (Auto) 0 0-0.2 10 ^3/uL Nucleated Red Blood Cells 0.0 % Sodium Level 132 L 136-145 mmol/L Potassium Level 3.5 3.5-5.1 mmol/L Chloride Level 99 98-107 mmol/L Carbon Dioxide Level 26 20-31 mmol/L Anion Gap 7 5-15 Blood Urea Nitrogen 45 H 9-23 mg/dL Creatinine 1.11 0.700-1.30 mg/dL Glomerular Filtration Rate Calc 71 >90 mL/min BUN/Creatinine Ratio 40.5 H 10.0-20.0 Serum Glucose 182 H 74-106 mg/dL Calcium Level 9.2 8.7-10.4 mg/dL Troponin I High Sensitivity 4 </=54 ng/L Current Medications Medications (Trade) Dose Ordered Sig/Lea Route Start Time Stop Time Status Last Admin Sodium Chloride 1,000 ml @ 1,000 mls/hr Q1H ONCE IV 03/30/25 10:30 03/30/25 11:29 DC 03/30/25 11:30 Patient alert. Complaining of generalized weakness. Vitals stable. Answering questions. Cardiac marker within normal limits. Unknown why he is unable to get out of bed. Possible TIA. CT of the head. Blood sugar elevated. Establish intravenous access. Was given fluids. Spoke with choice physician. EKG reviewed does not show any acute changes. Explained to the patient. Continue monitoring. Images Reviewed?: Images reviewed and evaluated by me Time of 1ST Reevaluation: 12:22 Reevaluation 1ST: Unchanged Patient Education/Counseling: Diagnosis, Treatment Family Education/Counseling: Diagnosis, Treatment SEPSIS Sepsis Screen Date sepsis recognized/suspect: Mar 30, 2025 Time Sepsis recognized/suspect: 1130 Recent Procedure: No On Antibiotic Therapy: No Respiratory Rate >20: No Heart Rate >90: No Temp<36 C (96.8 F) or >38.3 C: No SBP <90 or MAP <65 mmHG: No New Acute Mental Status Change: No Is the patient on CPAP, BIPAP,: No Physician Orders Chest Portable (03/30/25 13:00) Blood Culture (03/30/25 13:00) Head Without Contrast (03/30/25 13:00) Hemoglobin & Hematocrit (03/30/25 16:00) Hemoglobin & Hematocrit (03/30/25 22:00) Rapid Influenza A&B (03/30/25 13:00) Amiodarone Tablet (Cordarone Tablet) (03/30/25 22:00) Atorvastatin (Lipitor) (03/30/25 18:00) Docusate Sodium Capsule (Colace Capsule) (03/30/25 13:15) Metoprolol Tartrate Tablet (Lopressor Ta (03/31/25 07:00) Complete Blood Count (03/31/25 04:00) Comprehensive Metabolic Panel (03/31/25 04:00) Pantoprazole (Protonix) (03/30/25 22:00) * Gi D[facility] Green Marketing Specialist (03/30/25 13:04) Clear Liq Diet (03/30/25 Lunch) Pt Request For Service (03/30/25 13:05) Sodium Chloride 0.9% (03/30/25 13:15) Admit (03/30/25 13:07) Nitroglycerin Sublingual (Ntrostat Subli (03/30/25 13:15) Morphine Sulfate Injection (03/30/25 13:15) Stat Ekg For Chest Pain (03/30/25 13:07) Notify Of Changes From Base (03/30/25 13:07) Asian Studies Program Chair For 24 Hours (03/30/25 13:07) Emergency Dysrhythmia Protocol (03/30/25 13:07) Rhythm Strips Once Every Shift (03/30/25 13:07) Oxygen By Nasal Cannula (03/30/25 13:07) Troponin-I Hs (03/30/25 16:07) Vital Signs Date Time Temp Pulse Resp B/P (MAP) Pulse Ox O2 Delivery O2 Flow Rate FiO2 03/30/25 11:29 76 14 97 Room Air 03/30/25 11:29 98.1 76 14 115/53 (73) 97 98.1 03/30/25 09:25 97.6 88 16 106/56 99 97.6 Laboratory Tests Test 03/30/25 10:26 White Blood Count 6.0 10^3/uL (4.4-10.8) Medications Medications Dose Ordered Sig/Lea Route Start Time Stop Time Status Last Admin Dose Admin Sodium Chloride 1,000 ml @ 1,000 mls/hr Q1H ONCE IV 03/30/25 10:30 03/30/25 11:29 DC 03/30/25 11:30 Departure 1 Departure Time of Disposition: 13:20 Impression: Primary Impression: Uncontrolled diabetes mellitus Qualified Codes: E13.65 - Other specified diabetes mellitus with hyperglycemia Additional Impression: Generalized weakness Disposition: ADMITTED INPATIENT Admit to: Med Surg Condition: Guarded 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 Electronically submitted by Hilda Ballard ([email or web address]). ANUSHKA HE MD Mar 30, 2025 11:50
[2025-03-30] MEDS ORDERED: DOCUSATE SOD 100 MG CAP PO PRN (13:15)
[2025-03-30] MEDS ORDERED: MORPHINE SULFATE INJ 2 MG/ml SYRG IV PRN (13:15)
[2025-03-30] MEDS ORDERED: NITROGLYCERIN 0.4 MG SL TAB SL PRN (13:15)
--- NOTE | 2025-03-30 13:52 | DVH ---
CHEST RADIOGRAPH Indication: sob Technique: Single frontal view of the chest was obtained Comparison: XY CHEST XRAY 1 VIEW on DOS: 03/11/24, XY CHEST XRAY 1 VIEW on DOS: 03/11/24, XY CHEST XRAY 1 VIEW on DOS: 03/07/24 FINDINGS: Lines and Tubes: None Lungs: No focal consolidation. Pleura: No effusion. No pneumothorax. Cardiomediastinal contours: Unremarkable Bones: No acute osseous abnormality. IMPRESSION: 1. No acute cardiopulmonary disease.
--- NOTE | 2025-03-30 14:01 | DVH ---
Procedure: CT HEAD WITHOUT CONTRAST Study Date and Requested Time: 03/30/2025 01:21 PM History: gen weakness/aloc Comparison: CT HEAD WITHOUT CONTRAST on DOS: 03/06/24 Dose: CTDI: 63.65 mGy DLP: 1183.77 mGycm Technique: Multiplanar images obtained through the brain without intravenous contrast. Findings: [id number] Diffuse brain atrophy. Mild chronic small vessel ischemic changes. Right basal ganglia physiologic calcification. No hemorrhages, masses, mass effect, midline shift, herniation or cytotoxic edema following a large vascular territory. No intra-axial or extra-axial fluid collections. No evidence of hydrocephalus. The basal cisterns are patent. The pituitary gland, sella and parasellar regions are unremarkable. The cerebellar tonsils are in normal position. The cerebellum is unremarkable. The orbits and globes are unremarkable. The paranasal sinuses and mastoids are clear. There are no worrisome calvarial lesions. Impression: No evidence of acute intracranial abnormality.
[2025-03-30 16:14] LABS: Hematocrit 26.4 % (41.0-53.0); Hemoglobin 9.1 g/dL (13.5-17.5)
[2025-03-30] MEDS: PANTOPRAZOLE 40 MG/10 ML VIAL INJ IV ONE (16:40)
[2025-03-30] MEDS: SODIUM CHLORIDE 0.9% 1,000 ML IV SCH (16:40)
[2025-03-30] MEDS: ATORVASTATIN 20 MG TAB PO SCH (18:00)
[2025-03-30 22:29] LABS: Hematocrit 24.4 % (41.0-53.0); Hemoglobin 8.5 g/dL (13.5-17.5)
[2025-03-30] MEDS: PANTOPRAZOLE 40 MG/10 ML VIAL INJ IV SCH (23:39)
[2025-03-30] MEDS: AMIODARONE HCL 200 MG TAB PO SCH (23:46)
[2025-03-30] MEDS: ONDANSETRON HCL 4 MG/2 ML VIAL IV PRN (23:53)
[2025-03-31] VITALS (18 sets, daily range): BP systolic 103–130; BP diastolic 60–73; PULSE 70–104; RESP 16–18; TEMP 97.7–98.7; O2SAT 96–100
--- NOTE | 2025-03-31 00:40 | DVHHP2 ---
NELLY FORREST [employer] 03/31/25 0040: History of Present Illness Reason for Visit: Generalized weakness History of Present Illness 70-year-old male with past medical history of AFib, CAD, hypertension presents with complaints of generalized weakness, dizziness, black stool and nausea x2 days. Patient is on oral anticoagulation therapy. Patient endorses occasional alcohol use. Denies NSAID use. At this time patient denies fevers, chills, shortness of breath, chest pain, palpitations, vomiting, diarrhea. Cardiovascular: AFIB, CAD, HTN Pulmonary: COPD Smoke: 1 pack per day ALCOHOL: occassional Drugs: None Lives: with Family Review of Systems Constitutional: Yes: Weakness; No: Fever, Chills, Sweats, Malaise, Other Eyes: No: Pain, Vision change, Conjunctivae inflammation, Eyelid inflammation, Other, Redness ENT: No: Ear pain, Ear discharge, Nose pain, Nose discharge, Nose congestion, Mouth pain, Mouth swelling, Throat pain, Throat swelling, Other Respiratory: No: Cough, Dry, Shortness of breath, SOB with excertion, Wheezing, Hemoptysis, Pleuritic Pain, Sputum, Wheezing, Other Cardiovascular: No: Chest Pain, Palpitations, Orthopnea, Paroxysmal Noc. Dyspnea, Edema, Lt Headedness, Other Gastrointestinal: Abdominal Pain, Melena; No: Nausea, Vomiting, Diarrhea, Constipation, Hematochezia, Other Genitourinary: No Dysuria, No Frequency, No Incontinence, No Hematuria, No Retention, No Other Musculoskeletal: No: other, neck pain, shoulder pain, arm pain, back pain, hand pain, leg pain, foot pain Skin: No: Rash, Lesions, Jaundice, Bruising, Other Neurological: No: Weakness, Numbness, Incoordination, Change in speech, Confusion, Seizures, Other Allergies: Coded Allergies: Penicillins (Verified Allergy, Intermediate, ARMPIT RASH, 08/09/23) Medications Current Medications Medications Dose Ordered Sig/Lea Route Start Time Stop Time Status Last Admin Dose Admin Amiodarone HCl 200 mg BID PO 03/30/25 22:00 03/30/25 23:46 200 MG Atorvastatin Calcium 20 mg QPM PO 03/30/25 18:00 Docusate Sodium 100 mg DAILY PRN PO 03/30/25 13:15 Metoprolol Tartrate 50 mg QAM PO 03/31/25 07:00 Pantoprazole Sodium 40 mg BID IV 03/30/25 22:00 03/30/25 23:39 40 MG Sodium Chloride 1,000 ml @ 75 mls/hr [id number] IV 03/30/25 13:15 03/30/25 16:40 75 MLS/HR Nitroglycerin 0.4 mg Q5MINP PRN SL 03/30/25 13:15 Morphine Sulfate 2 mg Q30M PRN IV 03/30/25 13:15 Ondansetron HCl 4 mg Q4HPRN PRN IV 03/30/25 23:45 03/30/25 23:53 4 MG Exam Vital Signs Vital Signs Date Time Temp Pulse Resp B/P (MAP) Pulse Ox O2 Delivery O2 Flow Rate FiO2 03/30/25 23:38 Room Air* 0 21 03/30/25 18:00 97.9 78 16 111/59 (76) 100 97.9 General Appearance: Alert, Oriented X3, Cooperative, moderate distress HEENT: Atraumatic, PERRLA, EOMI Respiratory: Clear to auscultation, Normal air movement Cardiovascular: Regular rate, Normal S1, Normal S2 Abdominal: Normal bowel sounds, Soft, Other (diffuse tenderness) Extremities: No clubbing, No cyanosis, No edema Skin: No rashes, No breakdown Neuro: Normal speech, Strength at 5/5 X4 ext, Sensation intact Psych/Mental Status: Mental status NL, Mood NL Labs/Xrays Labs Test 03/30/25 22:11 03/30/25 16:23 03/30/25 16:03 03/30/25 11:28 Range/Units Hemoglobin 8.5 L 13.5-17.5 g/dL Hematocrit 24.4 L 41.0-53.0 % Influenza Type A Antigen Negative Negative Influenza Type B Antigen Negative Negative Troponin I High Sensitivity 4 </=54 ng/L Urine Color Light-yellow Yellow Urine Clarity Clear Clear Urine pH 7.0 5.0-9.0 Urine Specific [place] 1.013 1.001-1.035 Urine Protein 1+ H Negative Urine Ketones Negative Negative Urine Blood Negative Negative /uL Urine Nitrite Negative Negative Urine Bilirubin Negative Negative Urine Urobilinogen Normal Negative mg/dL Urine Leukocyte Esterase Negative Negative /uL Urine RBC <1 0 - 3 /hpf Urine Microscopic WBC < 1 0-3 /HPF Urine Squamous Epithelial Cells None seen <5 /hpf Urine Bacteria None seen None Seen /hpf Urine Glucose Normal Normal mg/dL Test 03/30/25 10:26 Range/Units White Blood Count 6.0 4.4-10.8 10^3/uL Red Blood Count 3.08 L 4.5-5.90 10^6/uL Mean Corpuscular Volume 89.7 80.0-100.0 fL Mean Corpuscular Hemoglobin 30.6 28.0-32.0 pg Mean Corpuscular Hemoglobin Concent 34.1 32.0-36.0 g/dL Red Cell Distribution Width 14.0 11.8-14.3 % Platelet Count 262 140-450 10^3/uL Mean Platelet Volume 6.6 L 6.9-10.8 fL Neutrophils (%) (Auto) 74.7 37.0-80.0 % Lymphocytes (%) (Auto) 19.6 10.0-50.0 % Monocytes (%) (Auto) 4.8 0.0-12.0 % Eosinophils (%) (Auto) 0.2 0.0-7.0 % Basophils (%) (Auto) 0.7 0.0-2.0 % Neutrophils # (Auto) 4.5 1.6-8.6 10 ^3/uL Lymphocytes # (Auto) 1.2 0.4-5.4 10 ^3/uL Monocytes # (Auto) 0.3 0-1.3 10 ^3/uL Eosinophils # (Auto) 0 0-0.8 10 ^3/uL Basophils # (Auto) 0 0-0.2 10 ^3/uL Nucleated Red Blood Cells 0.0 % Sodium Level 132 L 136-145 mmol/L Potassium Level 3.5 3.5-5.1 mmol/L Chloride Level 99 98-107 mmol/L Carbon Dioxide Level 26 20-31 mmol/L Anion Gap 7 5-15 Blood Urea Nitrogen 45 H 9-23 mg/dL Creatinine 1.11 0.700-1.30 mg/dL Glomerular Filtration Rate Calc 71 >90 mL/min BUN/Creatinine Ratio 40.5 H 10.0-20.0 Serum Glucose 182 H 74-106 mg/dL Calcium Level 9.2 8.7-10.4 mg/dL SEPSIS Sepsis Screen Date sepsis recognized/suspect: Mar 30, 2025 Time Sepsis recognized/suspect: 1131 Recent Procedure: No On Antibiotic Therapy: No Respiratory Rate >20: No Heart Rate >90: No Temp<36 C (96.8 F) or >38.3 C: No SBP <90 or MAP <65 mmHG: No New Acute Mental Status Change: No Is the patient on CPAP, BIPAP,: No Physician Orders Ondansetron Hcl (Zofran) (03/30/25 23:45) Stool Occult Blood (03/30/25 23:37) Communication Order (03/30/25 23:37) Vital Signs Date Time Temp Pulse Resp B/P (MAP) Pulse Ox O2 Delivery O2 Flow Rate FiO2 03/30/25 23:38 Room Air* 0 21 03/30/25 18:00 97.9 78 16 111/59 (76) 100 97.9 Medications Medications Dose Ordered Sig/Lea Route Start Time Stop Time Status Last Admin Dose Admin Amiodarone HCl 200 mg BID PO 03/30/25 22:00 03/30/25 23:46 200 MG Ondansetron HCl 4 mg Q4HPRN PRN IV 03/30/25 23:45 03/30/25 23:53 4 MG Pantoprazole Sodium 40 mg BID IV 03/30/25 22:00 03/30/25 23:39 40 MG Pantoprazole Sodium 40 mg ONCE ONCE IV 03/30/25 13:15 03/30/25 13:16 DC 03/30/25 16:40 40 MG Sodium Chloride 1,000 ml @ 75 mls/hr [id number] IV 03/30/25 13:15 03/30/25 16:40 75 MLS/HR Assessment/Plan Assessment/Plan Symptomatic anemia Generalized weakness Hx AFIB on oral anticoagulation Hx CAD Plan Admit to telemetry Gastroenterology consult. Monitor H&H. Transfuse PRBC for hemoglobin < 7. Occult stool pending Physical therapy evaluation Hold oral anticoagulation. GI ppx Protonix / DVT ppx SCD Plan discussed with: Patient My Orders Orders - NELLY FORREST [employer] Procedure Category Date Status Time Ondansetron Hcl PHA 03/30/25 In Process (Zofran) 23:45 Stool Occult Blood LAB 03/30/25 Logged 23:37 Communication Order ORDERS 03/30/25 Transmitted 23:37 Date of Service: Mar 31, 2025 Billing Provider: KINSEY MENDEZ MD Common Visit Codes: NOT BILLABLE KINSEY MENDEZ MD 03/31/25 1417: Review of Systems Allergies: Coded Allergies: Penicillins (Verified Allergy, Intermediate, ARMPIT RASH, 08/09/23) Additional Comments Additional Comments Additional Comments Patient's chart is reviewed and discussed with the nurse practitioner. Patient is seen evaluated and admitted by [employer] critical care cns. I agree with his eval uation, documentation, assessment and care plan as outlined. NELLY FORREST NP Mar 31, 2025 00:40 KINSEY MENDEZ MD Mar 31, 2025 14:17
[2025-03-31] MEDS ORDERED: BUDE1AER5 IN (00:47)
[2025-03-31] MEDS ORDERED: GABA-1308 PO (00:47)
[2025-03-31] MEDS: ALBUTEROL SULF 2.5 MG/0.5ML(0.5%) NEB SOLN NEB PRN (01:53)
[2025-03-31] MEDS: IPRATROPIUM BROM 0.5 MG/2.5ML INH SOL NEB PRN (01:53)
--- NOTE | 2025-03-31 04:42 | ECG ---
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
--- NOTE | 2025-03-31 04:42 | ECG ---
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
[2025-03-31 06:00] LABS: Alanine Aminotransferase 12 U/L (7-40); Albumin 3.4 g/dL (3.2-4.8); Anion Gap 7 (5-15); BUN/Creatinine Ratio 33.0 (10.0-20.0); Bilirubin, Total 0.6 mg/dL (0.2-1.0); Carbon Dioxide 25 mmol/L (20-31); Chloride 106 mmol/L (98-107); Sodium 138 mmol/L (136-145)
[2025-03-31 06:01] LABS: Alkaline Phosphatase 40 U/L (46-116); Blood Urea Nitrogen 32 mg/dL (9-23); Calcium 8.4 mg/dL (8.7-10.4); Glucose 151 mg/dL (74-106); Potassium 3.2 mmol/L (3.5-5.1); Total Protein 5.2 g/dL (5.7-8.2)
[2025-03-31] MEDS: POTASSIUM CHL 20MEQ/100ML 100 ML IV ONE (06:16)
[2025-03-31] MEDS: METOPROLOL TARTRATE 25 MG TAB PO SCH (06:17)
[2025-03-31 06:26] LABS: Hematocrit 21.8 % (41.0-53.0); Hemoglobin 7.4 g/dL (13.5-17.5); Mean Corpuscular Hemoglobin 31.1 pg (28.0-32.0); Mean Corpuscular Volume 92.1 fL (80.0-100.0); Nucleated Red Blood Cells % 0.1 %
--- NOTE | 2025-03-31 13:26 | DVHINCON2 ---
GI Consult Consult Note GI consult note Date of Consultation: 03/31/2025 Chief Complaint: Anemia/dark stool Referring Physician: Dr. Haines H&P: 70-year-old male with past medical history of AFib, CAD, hypertension admitted with complains of generalized weakness, dizziness and black stool along with nausea for the past three days. Patient takes Eliquis his last dosage was one day ago. Status post EGD about one year ago within normal limits per patient Past Medical History: AFib, CAD, hypertension, COPD Past Surgical History: Hernia repair, pacemaker Social History: NO smoking, drinking ETOH and use of illegal drugs. Family History: Noncontributory Review of Systems: Constitutional: no fever, chill, weight loss HEENT: no eye pain, no hearing loss, no oral lesion, no scleral icterus Heart: no chest pain, no chest pressure Lung: no cough, no dyspnea with exertion Abdomen: see HPI Physical exam: General: NAD, AAOX3 Chest: lung fontaine clear to auscultation Heart: RRR, no murmur Abdomen: non-distended, + lower abdominal tenderness to palpation, +BS Labs: Labs Test 03/31/25 05:16 03/30/25 18:08 03/30/25 16:23 03/30/25 16:03 Range/Units White Blood Count 4.5 4.4-10.8 10^3/uL Red Blood Count 2.37 L 4.5-5.90 10^6/uL Hemoglobin 7.4 L 13.5-17.5 g/dL Hematocrit 21.8 #L 41.0-53.0 % Mean Corpuscular Volume 92.1 80.0-100.0 fL Mean Corpuscular Hemoglobin 31.1 28.0-32.0 pg Mean Corpuscular Hemoglobin Concent 33.8 32.0-36.0 g/dL Red Cell Distribution Width 14.3 11.8-14.3 % Platelet Count 206 140-450 10^3/uL Mean Platelet Volume 6.6 L 6.9-10.8 fL Neutrophils (%) (Auto) 70.7 37.0-80.0 % Lymphocytes (%) (Auto) 21.1 10.0-50.0 % Monocytes (%) (Auto) 7.0 0.0-12.0 % Eosinophils (%) (Auto) 0.4 0.0-7.0 % Basophils (%) (Auto) 0.8 0.0-2.0 % Neutrophils # (Auto) 3.2 1.6-8.6 10 ^3/uL Lymphocytes # (Auto) 1.0 0.4-5.4 10 ^3/uL Monocytes # (Auto) 0.3 0-1.3 10 ^3/uL Eosinophils # (Auto) 0 0-0.8 10 ^3/uL Basophils # (Auto) 0 0-0.2 10 ^3/uL Nucleated Red Blood Cells 0.1 % Sodium Level 138 # 136-145 mmol/L Potassium Level 3.2 L 3.5-5.1 mmol/L Chloride Level 106 98-107 mmol/L Carbon Dioxide Level 25 20-31 mmol/L Anion Gap 7 5-15 Blood Urea Nitrogen 32 #H 9-23 mg/dL Creatinine 0.97 0.700-1.30 mg/dL Glomerular Filtration Rate Calc 83 >90 mL/min BUN/Creatinine Ratio 33.0 H 10.0-20.0 Serum Glucose 151 H 74-106 mg/dL Calcium Level 8.4 L 8.7-10.4 mg/dL Magnesium Level 2.2 1.6-2.6 mg/dL Total Bilirubin 0.6 0.2-1.0 mg/dL Aspartate Amino Transferase (AST) 14 13-40 U/L Alanine Aminotransferase (ALT) 12 7-40 U/L Alkaline Phosphatase 40 L 46-116 U/L B-Type Natriuretic Peptide 163.37 0-100 pg/mL Total Protein 5.2 L 5.7-8.2 g/dL Albumin 3.4 3.2-4.8 g/dL POC Glucose 138 H 70-106 mg/dl Influenza Type A Antigen Negative Negative Influenza Type B Antigen Negative Negative Troponin I High Sensitivity 4 </=54 ng/L Test 03/30/25 11:28 Range/Units Urine Color Light-yellow Yellow Urine Clarity Clear Clear Urine pH 7.0 5.0-9.0 Urine Specific [place] 1.013 1.001-1.035 Urine Protein 1+ H Negative Urine Ketones Negative Negative Urine Blood Negative Negative /uL Urine Nitrite Negative Negative Urine Bilirubin Negative Negative Urine Urobilinogen Normal Negative mg/dL Urine Leukocyte Esterase Negative Negative /uL Urine RBC <1 0 - 3 /hpf Urine Microscopic WBC < 1 0-3 /HPF Urine Squamous Epithelial Cells None seen <5 /hpf Urine Bacteria None seen None Seen /hpf Urine Glucose Normal Normal mg/dL Imaging: Assessment: Severe anemia History of AFib on oral anticoagulation Plan: Discussed with Dr. Snow - Pt will be scheduled for an EGD tomorrow 04/01/2025. Pt was informed of the risks (bleeding, infection, perforation, reaction to sedation medications and cardiopulmonary arrest) and benefit and is agreeable to undergo the procedures. Cardiac clearance requested Hold all blood thinners Monitor labs transfuse if hemoglobin less than seven Protonix Discussed plan with patient and RN Thank you for this consult Date of Service: Mar 31, 2025 Billing Provider: JAE MULLER Common Visit Codes: CONSULT ONLY Consultation Codes: [id number] CONSULT <60MIN JAE MULLER Mar 31, 2025 13:26
[2025-03-31] MEDS ORDERED: ACETAMINOPHEN 325 MG TAB PO PRN (14:00)
--- NOTE | 2025-03-31 14:16 | DVHINCON2 ---
RAMON SINHA [facility] 03/31/25 1416: Date Seen: Mar 31, 2025 Referring Physician ALLIE Hillman Reason for Consultation Cardiac risk stratification for EGD History of Present Illness This is a pleasant 70-year-old man who presented to the emergency room via EMS with a chief complaint of a lower GI bleed since Monday. The patient reports intermittent black tarry stools associated with generalized weakness, some dizziness, and chills. Denies SOB, palpitations, diaphoresis, or syncopal events. He has a history of atrial fibrillation and is currently anticoagulated with Eliquis as well as Plavix and aspirin until a week ago where DAPT was discontinue by primary surgical services coordinator. Follows up in the outpatient setting with Dr. Cutler with upcoming appointment on March 2025. Past medical history includes unspecified atrial fibrillation on Eliquis therapy, coronary artery disease status post PCI to mid RCA x1 CHIKI in 2021 (on dual-antiplatelet therapy), sick sinus syndrome status post dual-chamber pacemaker implantation (Biotronik, 2023), congestive heart failure with reduced LVEF at 40%, hypertension, dyslipidemia, and obesity. Past Medical History Past medical history reviewed. No other significant than mentioned above. Past Surgical History Permanent pacemaker implantation, 2023 PTCA x1 CHIKI, 2021 Right distal tibia Triple hernia repair, 2023 Family History: Arthritis Diabetes mellitus G8 FATHER FH: anemia G8 FATHER FH: kidney failure G8 MOTHER FH: rheumatoid arthritis G8 FATHER Family History Family history reviewed. Social History Denies the use of illicit drugs, alcohol, or tobacco use. Allergies: Coded Allergies: Penicillins (Verified Allergy, Intermediate, ARMPIT RASH, 08/09/23) Home Meds Reported Medications Budesonide-Formoterol Fumarate (Budesonide/Formoterol Fum 80-4.5 Mcg/Act) 1 Aer Aer, 1 AER IN, AER 03/31/25 Gabapentin (Gabapentin) 100 Mg Cap, 100 MG PO DAILY for 30 Days, MG 03/31/25 Metoprolol Succinate (Metoprolol Succinate Er) 50 Mg Tab, 50 MG PO DAILY, TAB 08/12/23 Hctz (Hydrochlorothiazide) 25 Mg Tab, 25 MG PO DAILY for HTN, TAB 08/09/23 Potassium Chloride (Potassium Chloride ER) 10 Meq Tab, 20 MEQ PO DAILY, TAB 08/09/23 Apixaban Base (ELIQUIS) 5 Mg Tab, 5 MG PO BID for stop on 08/10/23, TAB 08/09/23 Losartan Potassium (Losartan Potassium) 100 Mg Tab, 100 MG PO DAILY for HTN for 30 Days, MG 08/09/23 Atorvastatin Calcium (ATORVASTATIN CALCIUM) 20 Mg Tab, 1 TAB PO QPM 08/06/21 Metoprolol Tartrate (Metoprolol Tartrate) 25 Mg Tab, 50 MG PO QAM for HYPERTENSION, MG 08/06/21 Amlodipine Besylate (Amlodipine Besylate) 10 Mg Tab, 1 TAB PO QAM for HYPERTENSION 08/06/21 Docusate Sodium (Dok) 100 Mg Cap, 100 MG PO DAILY PRN for FOR CONSTIPATION 08/06/21 Home Meds Home medications reviewed. Current Medications Current Medications Medications (Trade) Dose Ordered Sig/Lea Route PRN Reason Start Time Stop Time Status Last Admin Amiodarone HCl (Cordarone Tablet) 200 mg BID PO 03/30/25 22:00 03/31/25 09:41 Atorvastatin Calcium (Lipitor) 20 mg QPM PO 03/30/25 18:00 Metoprolol Tartrate (Lopressor Tablet) 50 mg QAM PO 03/31/25 07:00 03/31/25 06:17 Pantoprazole Sodium (Protonix) 40 mg BID IV 03/30/25 22:00 03/31/25 09:41 Ondansetron HCl (Zofran) 4 mg Q4HPRN PRN IV NAUSEA / VOMITING 03/30/25 23:45 03/30/25 23:53 Albuterol (Ventolin Medneb) 2.5 mg Q4HPRN PRN NEB SHORTNESS OF BREATH 03/31/25 00:45 03/31/25 01:53 Ipratropium [place] (Atrovent Medneb) 0.5 mg Q4HPRN PRN NEB SHORTNESS OF BREATH 03/31/25 00:45 03/31/25 01:53 Acetaminophen (Tylenol Tablet) 650 mg Q6HP PRN PO PAIN SCALE 1-3 OR TEMP>100.4 03/31/25 14:00 UNV Dextrose/Sodium Chloride 1,000 ml @ 50 mls/hr Q20H IV 03/31/25 14:00 UNV Review of Systems Constitutional: Generalized weakness Ears, Nose, & Throat: No symptom reported Eyes: No symptom reported Neurological: Dizziness Pulmonary/Respiratory: No symptom reported Cardiovascular: No symptom reported Gastrointestinal: Lower GI bleed Genitourinary: No symptom reported Musculoskeletal: No symptom reported Skin: No symptom reported Psychiatric: No symptom reported Endocrine: No symptom reported Hemotologic/Lymphatic: No symptom reported Vital Signs Vital Signs Date Time Temp Pulse Resp B/P (MAP) Pulse Ox O2 Delivery O2 Flow Rate FiO2 03/31/25 13:00 98.2 78 17 104/73 (83) 97 98.2 03/31/25 08:15 Room Air* 0 21 Physical Exam General Appearance: Cooperative. Well developed. Well nourished. In no acute distress Head Exam: Normal inspection Neck Exam: Normal inspection. Non-tender. Normal alignment Pulmonary/Respiratory: Chest non-tender. Clear bilateral breath sounds Cardiovascular/Chest: Irregularly irregular rate and rhythm. AFib, controlled rate. No murmurs. No JVD. Peripheral Pulses: 2+ Radial (R). 2+ Radial (L). 2+ Pedal (R). 2+ Pedal (L) Abdominal Exam: Normal bowel sounds Ankle Exam: Negative ankle edema Lower extremities: Negative lower extremity edema Neuro/Mental Status: A&O x4. Coherent but poor historian Thoughts/Psych: Normal thought pattern. Appropriate mood and affect. Good judgement and insight Appearance: In no acute distress Skin Exam: Normal inspection. Normal color. Warm. Dry Labs/Diagnostic Data Labs Test 03/31/25 05:16 03/30/25 18:08 03/30/25 16:23 03/30/25 16:03 Range/Units White Blood Count 4.5 4.4-10.8 10^3/uL Red Blood Count 2.37 L 4.5-5.90 10^6/uL Hemoglobin 7.4 L 13.5-17.5 g/dL Hematocrit 21.8 #L 41.0-53.0 % Mean Corpuscular Volume 92.1 80.0-100.0 fL Mean Corpuscular Hemoglobin 31.1 28.0-32.0 pg Mean Corpuscular Hemoglobin Concent 33.8 32.0-36.0 g/dL Red Cell Distribution Width 14.3 11.8-14.3 % Platelet Count 206 140-450 10^3/uL Mean Platelet Volume 6.6 L 6.9-10.8 fL Neutrophils (%) (Auto) 70.7 37.0-80.0 % Lymphocytes (%) (Auto) 21.1 10.0-50.0 % Monocytes (%) (Auto) 7.0 0.0-12.0 % Eosinophils (%) (Auto) 0.4 0.0-7.0 % Basophils (%) (Auto) 0.8 0.0-2.0 % Neutrophils # (Auto) 3.2 1.6-8.6 10 ^3/uL Lymphocytes # (Auto) 1.0 0.4-5.4 10 ^3/uL Monocytes # (Auto) 0.3 0-1.3 10 ^3/uL Eosinophils # (Auto) 0 0-0.8 10 ^3/uL Basophils # (Auto) 0 0-0.2 10 ^3/uL Nucleated Red Blood Cells 0.1 % Sodium Level 138 # 136-145 mmol/L Potassium Level 3.2 L 3.5-5.1 mmol/L Chloride Level 106 98-107 mmol/L Carbon Dioxide Level 25 20-31 mmol/L Anion Gap 7 5-15 Blood Urea Nitrogen 32 #H 9-23 mg/dL Creatinine 0.97 0.700-1.30 mg/dL Glomerular Filtration Rate Calc 83 >90 mL/min BUN/Creatinine Ratio 33.0 H 10.0-20.0 Serum Glucose 151 H 74-106 mg/dL Calcium Level 8.4 L 8.7-10.4 mg/dL Magnesium Level 2.2 1.6-2.6 mg/dL Total Bilirubin 0.6 0.2-1.0 mg/dL Aspartate Amino Transferase (AST) 14 13-40 U/L Alanine Aminotransferase (ALT) 12 7-40 U/L Alkaline Phosphatase 40 L 46-116 U/L B-Type Natriuretic Peptide 163.37 0-100 pg/mL Total Protein 5.2 L 5.7-8.2 g/dL Albumin 3.4 3.2-4.8 g/dL POC Glucose 138 H 70-106 mg/dl Influenza Type A Antigen Negative Negative Influenza Type B Antigen Negative Negative Troponin I High Sensitivity 4 </=54 ng/L Test 03/30/25 11:28 Range/Units Urine Color Light-yellow Yellow Urine Clarity Clear Clear Urine pH 7.0 5.0-9.0 Urine Specific [place] 1.013 1.001-1.035 Urine Protein 1+ H Negative Urine Ketones Negative Negative Urine Blood Negative Negative /uL Urine Nitrite Negative Negative Urine Bilirubin Negative Negative Urine Urobilinogen Normal Negative mg/dL Urine Leukocyte Esterase Negative Negative /uL Urine RBC <1 0 - 3 /hpf Urine Microscopic WBC < 1 0-3 /HPF Urine Squamous Epithelial Cells None seen <5 /hpf Urine Bacteria None seen None Seen /hpf Urine Glucose Normal Normal mg/dL Microbiology Date/Time Source Procedure Growth Status 03/30/25 13:21 Blood Blood Culture - Preliminary NO GROWTH AFTER 24 HOURS OF INCUBATION. Resulted Assessment Preprocedural cardiovascular examination Severe anemia secondary to lower GI bleed Unspecified atrial fibrillation, controlled rate (on Eliquis at home) Chronic decompensated HFrEF with LVEF at 40% Presence of permanent pacemaker (Biotronik) Coronary artery disease status post PCI with stent placement to the RCA x1 CHIKI (denies antiplatelets/home med includes Plavix) Hypertension Dyslipidemia Obesity Plan/Recommendation (Dr. Drake) Echocardiogram reveals LVEF 40%. Revised cardiac risk index (Brandon criteria): Class I at 5.0% risk of , [place], or cardiac arrest. The patient has underlying history of congestive heart failure without acute decompensation, history of coronary artery disease without acute coronary syndrome, and has a fair functional capacity. Per Cardiology standpoint, the patient is at a moderate-risk for moderate-risk GI intervention. Home medications reviewed including Eliquis therapy as well as Plavix/ASA until a week ago when DAPT was discontinued. Given GI bleed the patient is currently off anticoagulation/antiplatelet therapy. He is at a high-risk for an acute CVA. Consider continuation of aforementioned medication per GI clearance. The patient can benefit for an outpatient left atrial appendage closure per primary surgical services coordinator discretion. Follow-up with Dr. Cutler within one to two weeks post- discharge. There is no additional cardiac workup indicated prior to surgery. Thank you for allowing us to care for this patient. Please call with any questions or concerns. This medical document was created using an electronic medical record system with voice recognition software and computerized dictation system. Although this document has been carefully reviewed, there might still be some phonetic and typographical errors. Occasional wrong-word or ``sound-alike substitutions may have occurred due to the inherent limitations of voice recognition software. These areas are purely typographical due to imperfections of the software programs and do not reflect any compromise in the patient's medical care. Please read the chart carefully and recognize, using context, where these substitutions have occurred. Plan discussed with: Patient, Other [place]HA Physical activity limitations: NA Date of Service: Mar 31, 2025 Billing Provider: RAMON SINHA [employer] Cardiology Common Codes: 48268-[id number] INP/OBS CARE (High) KEVIN DRAKE MD 03/31/25 1702: Family History: Arthritis Diabetes mellitus G8 FATHER FH: anemia G8 FATHER FH: kidney failure G8 MOTHER FH: rheumatoid arthritis G8 FATHER Allergies: Coded Allergies: Penicillins (Verified Allergy, Intermediate, ARMPIT RASH, 08/09/23) Home Meds Reported Medications Budesonide-Formoterol Fumarate (Budesonide/Formoterol Fum 80-4.5 Mcg/Act) 1 Aer Aer, 1 AER IN, AER 03/31/25 Gabapentin (Gabapentin) 100 Mg Cap, 100 MG PO DAILY for 30 Days, MG 03/31/25 Metoprolol Succinate (Metoprolol Succinate Er) 50 Mg Tab, 50 MG PO DAILY, TAB 08/12/23 Hctz (Hydrochlorothiazide) 25 Mg Tab, 25 MG PO DAILY for HTN, TAB 08/09/23 Potassium Chloride (Potassium Chloride ER) 10 Meq Tab, 20 MEQ PO DAILY, TAB 08/09/23 Apixaban Base (ELIQUIS) 5 Mg Tab, 5 MG PO BID for stop on 08/10/23, TAB 08/09/23 Losartan Potassium (Losartan Potassium) 100 Mg Tab, 100 MG PO DAILY for HTN for 30 Days, MG 08/09/23 Atorvastatin Calcium (ATORVASTATIN CALCIUM) 20 Mg Tab, 1 TAB PO QPM 08/06/21 Metoprolol Tartrate (Metoprolol Tartrate) 25 Mg Tab, 50 MG PO QAM for HYPERTENSION, MG 08/06/21 Amlodipine Besylate (Amlodipine Besylate) 10 Mg Tab, 1 TAB PO QAM for HYPERTENSION 08/06/21 Docusate Sodium (Dok) 100 Mg Cap, 100 MG PO DAILY PRN for FOR CONSTIPATION 08/06/21 Plan/Recommendation pt seen with cv team agree with adhesive bandage machine operator assessment and plan ok to go to EGD, intermediate risk pt may have been on triple therapy, hes not sure, should not be on anti platelet going fwd fu gi recs fu his cards Plan discussed with: Patient RAMON SINHA VERNA Mar 31, 2025 14:16 KEVIN DRAKE MD Mar 31, 2025 17:02
[2025-03-31 15:45] LABS: Hematocrit 24.4 % (41.0-53.0); Hemoglobin 8.5 g/dL (13.5-17.5)
[2025-03-31 16:03] LABS: INR 1.04 (0.9-1.15); Prothrombin Time 11.0 sec (9.3-11.8)
[2025-03-31] MEDS: POTASSIUM CHLORIDE 40 MEQ, LIDOCAINE 1% (LOCAL ANESTH.) 4 ML in SODIUM CHL 0.9% 250 ML IV ONE (18:09)
[2025-03-31] MEDS: D5W/SOD CHLO 0.9% 1,000 ML IV SCH (18:09)
[2025-03-31 20:10] LABS: Hematocrit 24.2 % (41.0-53.0); Hemoglobin 8.2 g/dL (13.5-17.5)
[2025-04-01] VITALS (12 sets, daily range): BP systolic 115–148; BP diastolic 54–93; PULSE 59–120; RESP 16–18; TEMP 97.9–98.8; O2SAT 94–99
[2025-04-01 06:36] LABS: Hematocrit 23.1 % (41.0-53.0); Hemoglobin 8.0 g/dL (13.5-17.5); Mean Corpuscular Hemoglobin 31.3 pg (28.0-32.0); Mean Corpuscular Volume 90.9 fL (80.0-100.0); Nucleated Red Blood Cells % 0.1 %
[2025-04-01 07:00] LABS: Anion Gap 7 (5-15); Carbon Dioxide 24 mmol/L (20-31); Sodium 140 mmol/L (136-145)
[2025-04-01 07:06] LABS: Triglycerides 117 mg/dL (< 150)
[2025-04-01 07:07] LABS: BUN/Creatinine Ratio 12.8 (10.0-20.0); Blood Urea Nitrogen 12 mg/dL (9-23)
[2025-04-01 07:08] LABS: Cholesterol 104 mg/dL (< 200)
[2025-04-01 07:09] LABS: HDL Cholesterol 45 mg/dL (40-59)
[2025-04-01 07:17] LABS: Calcium 8.5 mg/dL (8.7-10.4); Chloride 109 mmol/L (98-107); Glucose 135 mg/dL (74-106); Potassium 3.4 mmol/L (3.5-5.1)
--- NOTE | 2025-04-01 14:00 | DVHPN2 ---
Progress Note - Dictate Date Seen: Apr 01, 2025 Medical Necessity Reason Pt with a Central, PICC or Fol: No Subjective He is scheduled to undergo EGD this afternoon. Patient is otherwise asymptomatic at present. Hemoglobin stable post 1 unit transfusion per nurse. vital signs Vital Sign Date Time Temp Pulse Resp B/P (MAP) Pulse Ox O2 Delivery O2 Flow Rate FiO2 04/01/25 09:00 98.8 82 18 139/66 (90) 99 98.8 04/01/25 08:00 Room Air* 0 21 Total Intake and Output 03/31/25 03/31/25 04/01/25 15:00 23:00 07:00 Intake Total 850 ml 1330 ml 1400 ml Output Total 400 ml Balance 850 ml 1330 ml 1000 ml medications Current Medications Medications Dose Ordered Sig/Lea Route Start Time Stop Time Status Last Admin Dose Admin Amiodarone HCl 200 mg BID PO 03/30/25 22:00 04/01/25 09:55 200 MG Atorvastatin Calcium 20 mg QPM PO 03/30/25 18:00 03/31/25 18:55 20 MG Docusate Sodium 100 mg DAILY PRN PO 03/30/25 13:15 Metoprolol Tartrate 50 mg QAM PO 03/31/25 07:00 03/31/25 06:17 50 MG Pantoprazole Sodium 40 mg BID IV 03/30/25 22:00 04/01/25 09:55 40 MG Nitroglycerin 0.4 mg Q5MINP PRN SL 03/30/25 13:15 Morphine Sulfate 2 mg Q30M PRN IV 03/30/25 13:15 Ondansetron HCl 4 mg Q4HPRN PRN IV 03/30/25 23:45 03/30/25 23:53 4 MG Albuterol 2.5 mg Q4HPRN PRN NEB 03/31/25 00:45 03/31/25 01:53 2.5 MG Ipratropium [place] 0.5 mg Q4HPRN PRN NEB 03/31/25 00:45 03/31/25 01:53 0.5 MG Acetaminophen 650 mg Q6HP PRN PO 03/31/25 14:00 Dextrose/Sodium Chloride 1,000 ml @ 50 mls/hr Q20H IV 03/31/25 14:00 04/01/25 06:16 50 MLS/HR objective Alert awake oriented x3. HEENT neck supple no JVD. Heart regular rate and rhythm S1-S2. Lungs fair air movement without rales wheezes. Abdomen soft nontender positive bowel sounds. Extremities no edema positive pulses laboratory and microbiology Laboratory Tests 04/01/25 05:59 Test 04/01/25 05:59 Range/Units Serum Glucose 135 H 74-106 mg/dL Assessment/Plan Continue present management as he is on. Proceed with the EGD. Depending on these results we will resume anticoagulation with Eliquis for his chronic AFib. Continue Protonix. Further clinical management per clinical course. Discussed with the patient and nurse regarding care plan. Problems(with codes): (1) Generalized weakness (2) Uncontrolled diabetes mellitus (3) Alcohol abuse Plan discussed with: Patient, Other KINSEY MENDEZ MD Apr 01, 2025 14:00
[2025-04-01] MEDS: LIDOCAINE VISCOUS 2% 15ML UD MT ONE (14:36)
[2025-04-01] MEDS: LIDOCAINE VISCOUS 2% 15ML UD ONE (14:36)
[2025-04-01] MEDS: MIDAZOLAM HCL 5 MG/ML-1ML VIAL IV ONE (14:39)
[2025-04-01] MEDS: MIDAZOLAM HCL 5 MG/ML-1ML VIAL ONE (14:39)
[2025-04-01] MEDS: fentaNYL CITRATE 100 MCG/2 ML VL ONE (14:39)
[2025-04-01] MEDS: diphenhydrAMINE HCL 50 MG/1 ML VL ONE (14:39)
--- NOTE | 2025-04-01 14:56 | DVHOP2 ---
Operative Report DATE OF OPERATION: 04/01/25 PROCEDURE: Upper Endoscopy with biopsy. PREOPERATIVE INDICATION: The patient is a 70 -year-old male undergoing endoscopy for anemia and questionable history of melena POSTOPERATIVE DIAGNOSES: 1. 1 cm sliding-type hiatal hernia with no significant erosive esophagitis 2. Minimal antral gastritis and duodenitis of the duodenal bulb 3. There was a 2 mm benign-appearing duodenal bulb polyp that was seen and removed by cold biopsy forceps 4. Otherwise normal examination up to the 2nd and 3rd part of the duodenum with good bile drainage and no fresh or old blood in the stomach PROCEDURE PERFORMED BY: Bull Snow GI NURSE: Jaron SCOPE: Olympus videoendoscope. ASA CLASS: 3 PREOPERATIVE MEDICATIONS: Versed 3 mg, Fentanyl 50 mcg, Benadryl 50 mg I administered moderate sedation throughout this _8_ minutes procedure. An independent trained observer pushed medications at my direction, and monitored the patient's level of consciousness and physiological status throughout. PROCEDURE IN DETAIL: After obtaining an informed consent, the patient was placed on left lateral decubitus position. The patient was then sedated with the above medications. A bite block was placed between his teeth. The endoscope was then passed through the oropharynx, into the esophagus, and through the stomach and pylorus up to the second and third part of the duodenum. The endoscope was then withdrawn. The 2nd and 3rd part of the duodenal were normal. Duodenal bulb showed minimal duodenitis. There was a 1 mm benign-appearing duodenal bulb polyp that was removed by cold biopsy forceps The pre-pyloric area antrum and body was essentially normal except for minimal gastritis. On retroflexion the fundus and cardia were normal. Duodenal and gastric biopsies were obtained. The endoscope was then withdrawn into the distal esophagus where he had a 1 cm sliding-type hiatal hernia with no significant erosive esophagitis The remaining distal and proximal esophagus and oropharynx were unremarkable The patient tolerated the procedure well without difficulty. COMPLICATIONS : None SPECIMENS: Duodenal biopsies Gastric biopsies DISPOSITION: Transfer back to the floor Stable PLAN: 1. Await for biopsy result 2. Will place pt on Protonix 40 mg p.o. daily 3. Okay to resume Eliquis as the patient is not showing signs any active bleeding 4. Resume GI soft diet advance as tolerated 5. Patient is scheduled for an outpatient colonoscopy with a gastro group on 04/06/2025, he was advised to keep his appointment TREVON,BULL MD Apr 01, 2025 14:56
[2025-04-01] MEDS: DIGOXIN (250MCG/ML) 2 ML AMPULE IV ONE (15:34)
[2025-04-01] MEDS: METOPROLOL SUCCINATE XL 50 MG TAB PO ONE (15:35)
--- NOTE | 2025-04-01 15:37 | DVHPN2 ---
Consult Progress Note Date Seen: Apr 01, 2025 Subjective Review of Systems: CVS:Abnormal, RESPIRATORY:Normal, NEURO:Normal Other Systems: Notified of A-fib with RVR. Reports episode of substernal chest pain earlier today Objective vital signs Vital Sign Date Time Temp Pulse Resp B/P (MAP) Pulse Ox O2 Delivery O2 Flow Rate FiO2 04/01/25 13:00 98.0 92 17 134/72 (92) 99 98.0 04/01/25 08:00 Room Air* 0 21 Total Intake and Output 03/31/25 03/31/25 04/01/25 15:00 23:00 07:00 Intake Total 850 ml 1330 ml 1400 ml Output Total 400 ml Balance 850 ml 1330 ml 1000 ml medications Current Medications Medications Dose Ordered Sig/Lea Route Start Time Stop Time Status Last Admin Dose Admin Amiodarone HCl 200 mg BID PO 03/30/25 22:00 04/01/25 09:55 200 MG Atorvastatin Calcium 20 mg QPM PO 03/30/25 18:00 03/31/25 18:55 20 MG Docusate Sodium 100 mg DAILY PRN PO 03/30/25 13:15 Metoprolol Tartrate 50 mg QAM PO 03/31/25 07:00 03/31/25 06:17 50 MG Pantoprazole Sodium 40 mg BID IV 03/30/25 22:00 04/01/25 09:55 40 MG Nitroglycerin 0.4 mg Q5MINP PRN SL 03/30/25 13:15 Morphine Sulfate 2 mg Q30M PRN IV 03/30/25 13:15 Ondansetron HCl 4 mg Q4HPRN PRN IV 03/30/25 23:45 03/30/25 23:53 4 MG Albuterol 2.5 mg Q4HPRN PRN NEB 03/31/25 00:45 03/31/25 01:53 2.5 MG Ipratropium [place] 0.5 mg Q4HPRN PRN NEB 03/31/25 00:45 03/31/25 01:53 0.5 MG Acetaminophen 650 mg Q6HP PRN PO 03/31/25 14:00 Dextrose/Sodium Chloride 1,000 ml @ 50 mls/hr Q20H IV 03/31/25 14:00 04/01/25 06:16 50 MLS/HR Examination: GENERAL:Abnormal (Pale), LUNGS:Normal, CVS:Abnormal (A-fib with RVR up to 150s bpm), NEURO:Normal laboratory and microbiology Laboratory Tests 04/01/25 05:59 Test 04/01/25 05:59 Range/Units Serum Glucose 135 H 74-106 mg/dL Problem List/Assessment/Plan Problem List/Assessment/Plan Unspecified atrial fibrillation with RVR, uncontrolled rate (on Eliquis at home) Preprocedural cardiovascular examination Severe anemia secondary to lower GI bleed Chronic decompensated HFrEF with LVEF at 40% Presence of permanent pacemaker (Biotronik) Coronary artery disease status post PCI with stent placement to the RCA x1 CHIKI (on DAPT until a week ago) Hypertension Dyslipidemia Obesity Plan/Recommendation (Dr. Parham) Notified of a-fib with RVR, scheduled metoprolol was not administered this morning. Initiate rate control with beta-fred and digoxin. Re-check H&H and transfuse as necessary for a hemoglobin level > 8.0 given history of CAD with stents. Echocardiogram reveals LVEF 40%. Home medications reviewed, patient with triple therapy including Eliquis therapy as well as Plavix/ASA until a week ago when DAPT was discontinued. The patient should not be on antiplatelet therapy moving forward. Given GI bleed the patient is currently off anticoagulation/antiplatelet therapy. He is at a high-risk for an acute CVA. Consider continuation of low-dose Eliquis per GI clearance. The patient can benefit for an outpatient left atrial appendage closure per primary social sciences professor discretion. Follow-up with Dr. Cutler within one to two weeks post-discharge. Further orders per clinical course. Thank you for allowing us to care for this patient. Please call with any questions or concerns. This medical document was created using an electronic medical record system with voice recognition software and computerized dictation system. Although this document has been carefully reviewed, there might still be some phonetic and typographical errors. Occasional wrong-word or ``sound-alike substitutions may have occurred due to the inherent limitations of voice recognition software. These areas are purely typographical due to imperfections of the software programs and do not reflect any compromise in the patient's medical care. Please read the chart carefully and recognize, using context, where these substitutions have occurred. Plan discussed with: Patient, Other Date of Service: Apr 01, 2025 Billing Provider: RAMON SINHA Cardiology Common Codes: [id number] HOSP CARE(High RAMON SINHA Apr 01, 2025 15:36
[2025-04-01 15:45] LABS: Hemoglobin 8.3 g/dL (13.5-17.5)
[2025-04-01 15:47] LABS: Hematocrit 24.5 % (41.0-53.0)
[2025-04-01] MEDS: SUCRALFATE 1 GM/10 ML ORAL SUSP PO ONE (17:40)
[2025-04-01] MEDS: POTASSIUM CHLORIDE 60 MEQ, LIDOCAINE 1% (LOCAL ANESTH.) 6 ML in SODIUM CHL 0.9% 500 ML IV ONE (21:12)
[2025-04-02] VITALS (8 sets, daily range): BP systolic 119–150; BP diastolic 64–88; PULSE 62–98; RESP 14–18; TEMP 37.1; O2SAT 95–98
[2025-04-02 06:04] LABS: Hemoglobin 8.2 g/dL (13.5-17.5); Nucleated Red Blood Cells % 0.0 %
[2025-04-02 06:07] LABS: Hematocrit 23.9 % (41.0-53.0); Mean Corpuscular Hemoglobin 31.6 pg (28.0-32.0); Mean Corpuscular Volume 91.8 fL (80.0-100.0)
[2025-04-02 06:21] LABS: Anion Gap 8 (5-15); Carbon Dioxide 24 mmol/L (20-31); Potassium 4.1 mmol/L (3.5-5.1); Sodium 142 mmol/L (136-145)
[2025-04-02 06:27] LABS: BUN/Creatinine Ratio 11.5 (10.0-20.0); Blood Urea Nitrogen 10 mg/dL (9-23)
[2025-04-02 06:28] LABS: Magnesium 2.1 mg/dL (1.6-2.6)
[2025-04-02 06:29] LABS: Calcium 8.3 mg/dL (8.7-10.4); Chloride 110 mmol/L (98-107); Glucose 127 mg/dL (74-106)
[2025-04-02] MEDS: METOPROLOL SUCCINATE XL 50 MG TAB PO SCH (09:58)
[2025-04-02] MEDS ORDERED: PANT40TA57 PO (12:33)
[2025-04-02] MEDS ORDERED: IRON100T PO (12:33)
--- NOTE | 2025-04-02 12:36 | DVHDS2 ---
Discharge Summary Date of Admission Mar 30, 2025 at 13:07 Date of Discharge: Apr 02, 2025 Labs/Diagnostic Data: Laboratory Results Test 04/02/25 05:28 04/01/25 11:00 04/01/25 05:59 03/31/25 15:13 White Blood Count 3.9 10^3/uL (4.4-10.8) Red Blood Count 2.61 10^6/uL (4.5-5.90) Hemoglobin 8.2 g/dL (13.5-17.5) Hematocrit 23.9 % (41.0-53.0) Mean Corpuscular Volume 91.8 fL (80.0-100.0) Mean Corpuscular Hemoglobin 31.6 pg (28.0-32.0) Mean Corpuscular Hemoglobin Concent 34.4 g/dL (32.0-36.0) Red Cell Distribution Width 14.3 % (11.8-14.3) Platelet Count 252 10^3/uL (140-450) Mean Platelet Volume 6.7 fL (6.9-10.8) Neutrophils (%) (Auto) 65.0 % (37.0-80.0) Lymphocytes (%) (Auto) 24.9 % (10.0-50.0) Monocytes (%) (Auto) 7.2 % (0.0-12.0) Eosinophils (%) (Auto) 2.2 % (0.0-7.0) Basophils (%) (Auto) 0.7 % (0.0-2.0) Neutrophils # (Auto) 2.5 10 ^3/uL (1.6-8.6) Lymphocytes # (Auto) 1.0 10 ^3/uL (0.4-5.4) Monocytes # (Auto) 0.3 10 ^3/uL (0-1.3) Eosinophils # (Auto) 0.1 10 ^3/uL (0-0.8) Basophils # (Auto) 0 10 ^3/uL (0-0.2) Nucleated Red Blood Cells 0.0 % Sodium Level 142 mmol/L (136-145) Potassium Level 4.1 mmol/L (3.5-5.1) Chloride Level 110 mmol/L (98-107) Carbon Dioxide Level 24 mmol/L (20-31) Anion Gap 8 (5-15) Blood Urea Nitrogen 10 mg/dL (9-23) Creatinine 0.87 mg/dL (0.700-1.30) Glomerular Filtration Rate Calc 92 mL/min (>90) BUN/Creatinine Ratio 11.5 (10.0-20.0) Serum Glucose 127 mg/dL (74-106) Calcium Level 8.3 mg/dL (8.7-10.4) Magnesium Level 2.1 mg/dL (1.6-2.6) POC Glucose 149 mg/dl (70-106) Hemoglobin A1c 6.2 % A1C (<5.7) Triglycerides Level 117 mg/dL (< 150) Cholesterol Level 104 mg/dL (< 200) LDL Cholesterol 44 mg/dL (< 100) HDL Cholesterol 45 mg/dL (40-59) Prothrombin Time 11.0 sec (9.3-11.8) Prothrombin Time INR 1.04 (0.9-1.15) Test 03/31/25 05:16 03/30/25 16:23 03/30/25 16:03 03/30/25 11:28 Total Bilirubin 0.6 mg/dL (0.2-1.0) Aspartate Amino Transferase (AST) 14 U/L (13-40) Alanine Aminotransferase (ALT) 12 U/L (7-40) Alkaline Phosphatase 40 U/L (46-116) B-Type Natriuretic Peptide 163.37 pg/mL (0-100) Total Protein 5.2 g/dL (5.7-8.2) Albumin 3.4 g/dL (3.2-4.8) Influenza Type A Antigen Negative (Negative) Influenza Type B Antigen Negative (Negative) Troponin I High Sensitivity 4 ng/L (</=54) Urine Color Light-yellow (Yellow) Urine Clarity Clear (Clear) Urine pH 7.0 (5.0-9.0) Urine Specific Marcell 1.013 (1.001-1.035) Urine Protein 1+ (Negative) Urine Ketones Negative (Negative) Urine Blood Negative /uL (Negative) Urine Nitrite Negative (Negative) Urine Bilirubin Negative (Negative) Urine Urobilinogen Normal mg/dL (Negative) Urine Leukocyte Esterase Negative /uL (Negative) Urine RBC <1 /hpf (0 - 3) Urine Microscopic WBC < 1 /HPF (0-3) Urine Squamous Epithelial Cells None seen /hpf (<5) Urine Bacteria None seen /hpf (None Seen) Urine Glucose Normal mg/dL (Normal) Other Laboratory Tests 04/02/25 05:28 Brief Hx & Hospital Course: 70-year-old male with past medical history of AFib, CAD, hypertension presents with complaints of generalized weakness, dizziness, black stool and nausea x2 days. Patient is on oral anticoagulation therapy. Patient endorses occasional alcohol use. Denies NSAID use. At this time patient denies fevers, chills, shortness of breath, chest pain, palpitations, vomiting, diarrhea. He is admitted and evaluated by GI underwent EGD did not relieve any active signs of bleeding. Patient is advised to continue proton pump inhibitor and resume Eliquis. However patient is also scheduled for a colonoscopy on 04/06/2025. Therefore he is advised to hold the Eliquis due to risk of bleeding if he needs any polypectomy. Meantime also discussed with him risks of embolic stroke given he is going to be off of Eliquis for few days. Patient verbalized understanding of this and does not want his colonoscopy canceled therefore we will hold the Eliquis till scope is done and then resume right away. Otherwise while in the hospital he remained clinically stable. Hemoglobin is stable. No signs of active bleeding. Therefore he has been discharged home in stable condition. I have talked with the patient at length regarding his hospital diagnosis, risks benefits of taking and withholding Eliquis, discharge medications, discharge instructions and follow-up plan of care. He has verbalized understanding of these and agree with the care plan as outlined. Operations or Procedures PROCEDURE: Upper Endoscopy with biopsy. PREOPERATIVE INDICATION: The patient is a 70 -year-old male undergoing endoscopy for anemia and questionable history of melena POSTOPERATIVE DIAGNOSES: 1. 1 cm sliding-type hiatal hernia with no significant erosive esophagitis 2. Minimal antral gastritis and duodenitis of the duodenal bulb 3. There was a 2 mm benign-appearing duodenal bulb polyp that was seen and removed by cold biopsy forceps 4. Otherwise normal examination up to the 2nd and 3rd part of the duodenum with good bile drainage and no fresh or old blood in the stomach PROCEDURE PERFORMED BY: Bull Snow GI NURSE: Jaron SCOPE: Olympus videoendoscope. ASA CLASS: 3 PREOPERATIVE MEDICATIONS: Versed 3 mg, Fentanyl 50 mcg, Benadryl 50 mg I administered moderate sedation throughout this _8_ minutes procedure. An independent trained observer pushed medications at my direction, and monitored the patient's level of consciousness and physiological status throughout. PROCEDURE IN DETAIL: After obtaining an informed consent, the patient was placed on left lateral decubitus position. The patient was then sedated with the above medications. A bite block was placed between his teeth. The endoscope was then passed through the oropharynx, into the esophagus, and through the stomach and pylorus up to the second and third part of the duodenum. The endoscope was then withdrawn. The 2nd and 3rd part of the duodenal were normal. Duodenal bulb showed minimal duodenitis. There was a 1 mm benign-appearing duodenal bulb polyp that was removed by cold biopsy forceps The pre-pyloric area antrum and body was essentially normal except for minimal gastritis. On retroflexion the fundus and cardia were normal. Duodenal and gastric biopsies were obtained. The endoscope was then withdrawn into the distal esophagus where he had a 1 cm sliding-type hiatal hernia with no significant erosive esophagitis The remaining distal and proximal esophagus and oropharynx were unremarkable The patient tolerated the procedure well without difficulty. COMPLICATIONS : None SPECIMENS: Duodenal biopsies Gastric biopsies DISPOSITION: Transfer back to the floor Stable PLAN: 1. Await for biopsy result 2. Will place pt on Protonix 40 mg p.o. daily 3. Okay to resume Eliquis as the patient is not showing signs any active bleeding 4. Resume GI soft diet advance as tolerated 5. Patient is scheduled for an outpatient colonoscopy with a gastro group on 04/06/2025, he was advised to keep his appointment BULL SNOW MD Apr 01, 2025 14:56 Condition at Discharge: Stable Final Diagnosis/Problems List Anemia of chronic disease, mild gastritis/duodenitis, once inhibitor sliding hiatal hernia Discharge Disposition: Home Discharge Instruct/Medications Diet: Consistent carbohydrate, Cardiac 2g Na,low cholest Activity: No Restrictions, As Tolerated Follow Up/Referral: Primary care physician after two weeks to repeat your blood counts for hemoglobin levels. Medications: Take Protonix and iron tablets as prescribed. Scheduled Amlodipine Besylate (Amlodipine Besylate), 1 TAB PO QAM, (Reported) Apixaban Base (Eliquis), 5 MG PO BID, (Reported) Atorvastatin Calcium (Atorvastatin Calcium), 1 TAB PO QPM, (Reported) Gabapentin (Gabapentin), 100 MG PO DAILY, (Reported) Hctz (Hydrochlorothiazide), 25 MG PO DAILY, (Reported) Iron-Vitamin C (Iron 100/C), 1 TAB PO DAILY@BREAKFAST Losartan Potassium (Losartan Potassium), 100 MG PO DAILY, (Reported) Metoprolol Succinate (Metoprolol Succinate Er), 50 MG PO DAILY, (Reported) Metoprolol Tartrate (Metoprolol Tartrate), 50 MG PO QAM, (Reported) Pantoprazole Sodium Sesquihydr (Pantoprazole Sodium Dr), 40 MG PO DAILY@BREAKFAST Potassium Chloride (Potassium Chloride ER), 20 MEQ PO DAILY, (Reported) Scheduled PRN Docusate Sodium (Dok), 100 MG PO DAILY PRN for FOR CONSTIPATION, (Reported) Miscellaneous Medications Budesonide-Formoterol Fumarate (Budesonide/Formoterol Fum 80-4.5 Mcg/Act), 1 AER IN, (Reported) Discharge Statement: "Patient was advised to return to the ER or call 911 if any headaches, dizziness, shortness of breath, chest pain, abdominal pain, bleeding, fevers, or worsening of medical condition. Patient was counseled about treatment plan, medications, possible side effects, patientverbalized understanding. All questions were answered to the best of my ability. This discharge took greater then 30 minutes in planning, reviewing documentation, counseling the patient, and discussing with other team members." ASSESSMENT ASSESSMENT Assessment Anemia of chronic disease, mild gastritis/duodenitis, once inhibitor sliding hiatal hernia KINSEY MENDEZ MD Apr 02, 2025 12:36
--- NOTE | 2025-04-02 14:27 | DVHPN2 ---
Progress Note - Dictate Date Seen: Apr 02, 2025 Medical Necessity Reason Pt with a Central, PICC or Fol: No Subjective No new complaints Hemoglobin stable at 8.2 EGD showed gastritis and duodenitis and a duodenal benign polyp vital signs Vital Sign Date Time Temp Pulse Resp B/P (MAP) Pulse Ox O2 Delivery O2 Flow Rate FiO2 04/02/25 13:43 37.1 98 17 97 04/02/25 13:00 129/64 (85) 04/02/25 08:00 Room Air* 0 21 Total Intake and Output 04/01/25 04/01/25 04/02/25 15:00 23:00 07:00 Intake Total 10 ml 1850 ml 1486 ml Output Total 900 ml 500 ml Balance 10 ml 950 ml 986 ml medications Current Medications Medications Dose Ordered Sig/Lea Route Start Time Stop Time Status Last Admin Dose Admin Amiodarone HCl 200 mg BID PO 03/30/25 22:00 04/02/25 09:59 200 MG Atorvastatin Calcium 20 mg QPM PO 03/30/25 18:00 04/01/25 17:39 20 MG Docusate Sodium 100 mg DAILY PRN PO 03/30/25 13:15 Pantoprazole Sodium 40 mg BID IV 03/30/25 22:00 04/02/25 09:59 40 MG Nitroglycerin 0.4 mg Q5MINP PRN SL 03/30/25 13:15 Morphine Sulfate 2 mg Q30M PRN IV 03/30/25 13:15 Ondansetron HCl 4 mg Q4HPRN PRN IV 03/30/25 23:45 03/30/25 23:53 4 MG Albuterol 2.5 mg Q4HPRN PRN NEB 03/31/25 00:45 03/31/25 01:53 2.5 MG Ipratropium Novi 0.5 mg Q4HPRN PRN NEB 03/31/25 00:45 03/31/25 01:53 0.5 MG Acetaminophen 650 mg Q6HP PRN PO 03/31/25 14:00 Dextrose/Sodium Chloride 1,000 ml @ 50 mls/hr Q20H IV 03/31/25 14:00 04/01/25 06:16 50 MLS/HR Metoprolol Succinate 50 mg DAILY PO 04/02/25 10:00 04/02/25 09:58 50 MG Digoxin 0.125 mg EOD PO 04/03/25 10:00 objective General: NAD, AAOX3 Chest: lung fontaine clear to auscultation Heart: RRR, no murmur Abdomen: non-distended, Ext no c/c/e laboratory and microbiology Laboratory Tests 04/02/25 05:28 Test 04/02/25 05:28 Range/Units Serum Glucose 127 H 74-106 mg/dL Problems(with codes): (1) Anemia (2) Melena Prognosis Plan Protonix 40 mg p.o. daily Carafate 1 g p.o. q.h.s. Avoid aspirin NSAIDs Okay to resume Eliquis for now Patient is scheduled for outpatient colonoscopy next week Patient was encouraged to keep his appointment Discharge planning is in progress Plan discussed with: Patient BULL LESTER MD Apr 02, 2025 14:27
[2025-04-03] MEDS ORDERED: DIGOXIN 0.125 MG TAB PO SCH (10:00)
== END 2025-04-02 18:18 | disposition home or self-care (01) | DRG 811 ==
LOC: ER 09:23 → OVERFLOW 13:07 → TELE-CENTR 13:07
PROVIDERS: ADMIT Hospitalist; ATTEND Hospitalist
PROC: 30233N1 Transfusion of Nonautologous Red Blood Cells into Peripheral Vein, Percutaneous Approach (ICD-10-PCS; principal; 2025-03-31)
PROC: 0DB98ZX Excision of Duodenum, Via Natural or Artificial Opening Endoscopic, Diagnostic (ICD-10-PCS; 2025-04-01)
PROC: 0DB68ZX Excision of Stomach, Via Natural or Artificial Opening Endoscopic, Diagnostic (ICD-10-PCS; 2025-04-01)
DX: D64.9 Anemia, unspecified (principal); K29.71 Gastritis, unspecified, with bleeding; K29.81 Duodenitis with bleeding; I50.22 Chronic systolic (congestive) heart failure; I11.0 Hypertensive heart disease with heart failure; I48.20 Chronic atrial fibrillation, unspecified; G30.9 Alzheimer's disease, unspecified; Z79.01 Long term (current) use of anticoagulants; E11.65 Type 2 diabetes mellitus with hyperglycemia; E66.9 Obesity, unspecified; J44.9 Chronic obstructive pulmonary disease, unspecified; Z20.822 Contact with and (suspected) exposure to COVID-19; E78.5 Hyperlipidemia, unspecified; K44.9 Diaphragmatic hernia without obstruction or gangrene; F17.210 Nicotine dependence, cigarettes, uncomplicated; I25.10 Atherosclerotic heart disease of native coronary artery without angina pectoris; K63.5 Polyp of colon; Z95.0 Presence of cardiac pacemaker; Z88.0 Allergy status to penicillin; Z79.899 Other long term (current) drug therapy; Z83.3 Family history of diabetes mellitus; Z83.2 Family history of diseases of the blood and blood-forming organs and certain disorders involving the immune mechanism; Z95.5 Presence of coronary angioplasty implant and graft; Z68.32 Body mass index [BMI] 32.0-32.9, adult
CPT/HCPCS: 36415; 43239; 70450; 71045; 80048; 80053; 80061; 81001; 82962; 83036; 83735; 83880; 84484; 85014; 85018; 85025; 85610; 86850; 86900; 86901; 86920; 87040; 87804; 93005; 94640; 96361; 96374; 96375; 97163; G0378; J2003; J2250; J2405; J2470; J3480; J7042